=== PATIENT | male | born 1990 | race Caucasian/White ===

== ENCOUNTER 2018-05-28 12:38 | Inpatient (IN) | payer OTHER ==
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
[2018-05-28] MEDS ORDERED: MAGNESIUM CITRATE 300 ML BOTTLE PO PRN (14:51)
[2018-05-28] MEDS ORDERED: guaiFENesin/D-METHORPHAN HB 10 ML UNIT-DOSE CUPS PO PRN (14:51)
[2018-05-28] MEDS ORDERED: MENTHOL/PHENOL 1 EACH UD MM PRN (14:51)
[2018-05-28] MEDS ORDERED: ACETAMINOPHEN 325 MG TABLET (FP) PO PRN (14:51)
[2018-05-28] MEDS ORDERED: LOPERAMIDE HCL 2 MG CAPSULE PO PRN (14:51)
[2018-05-28] MEDS ORDERED: MAGNESIUM HYDROX 2400MG/30ML ORAL SUSPENSION 30 ML CUP PO PRN (14:51)
[2018-05-28] MEDS ORDERED: P-EPHED 60MG/TRIPROLIDI 2.5MG TABLET PO PRN (14:51)
[2018-05-28] MEDS ORDERED: IBUPROFEN 400 MG TABLET (FP) PO PRN (14:51)
[2018-05-28] MEDS ORDERED: NICOTINE POLACRILEX 2 MG GUM BUC PRN (14:51)
[2018-05-28] MEDS: PHENYTOIN NA EXTENDED 100 MG CAPSULE (FP) PO SCH (21:29)
[2018-05-28] MEDS: THIAMINE HCL 100 MG TABLET (FP) PO SCH (21:29)
[2018-05-28] MEDS: RANITIDINE HCL 150 MG TABLET (FP) PO SCH (21:29)
[2018-05-28] MEDS: QUEtiapine FUMARATE 400 MG TABLET PO SCH (21:29)
[2018-05-28] MEDS: AMITRIPTYLINE HCL 100 MG TABLET PO SCH (21:29)
[2018-05-29] MEDS: METHADONE HCL 40 MG DISPERSABLE TABLET PO SCH (06:37)
[2018-05-29] MEDS: PRENATAL VITAMINS W/ FOLIC ACID TABLET (FP) PO SCH (09:38)
[2018-05-29] MEDS: PHENYTOIN NA EXTENDED 100 MG CAPSULE (FP) PO SCH ×2 (09:38→21:20)
[2018-05-29] MEDS: RANITIDINE HCL 150 MG TABLET (FP) PO SCH ×2 (09:38→21:20)
[2018-05-29] MEDS: NICOTINE 21 MG/24 HOURS TOPICAL PATCH TD SCH (09:40)
--- NOTE | 2018-05-29 15:25 | PN ---
[facility] Progress Note Note: Vital Signs Temperature 97.6 F 05/29/18 06:44 Pulse Rate 108 H 05/29/18 10:00 Respiratory Rate 18 05/29/18 10:00 Blood Pressure 125/80 05/29/18 10:00 O2 Sat by Pulse Oximetry (%) patient was evaluated by marketing strategy analyst rec: Ensure 120 ML PO BID . Ensure ordered increase fluids continue to monitor
--- NOTE | 2018-05-29 15:37 | PN ---
[facility] Progress Note Note: Patient c/o of back pain and cracked feet from walking on them x 5 days. Vital Signs Temperature 97.6 F 05/29/18 06:44 Pulse Rate 108 H 05/29/18 10:00 Respiratory Rate 18 05/29/18 10:00 Blood Pressure 125/80 05/29/18 10:00 O2 Sat by Pulse Oximetry (%) Patient Aox3 no distress no adventitious breath sounds + back pain + callus bilaterally and +small lesion on the right plantar surface seondary to dry skin no infection full ROM ambulating in the unit - skin lesion - callus - back pain Plan: keep skin clean and dry, top bacitracin, top AxD oint, cover right lesion with gauze qd flexeril pRN lidocaine patch increase fluids continue to monitor
[2018-05-29] MEDS: AMITRIPTYLINE HCL 100 MG TABLET PO SCH (21:20)
[2018-05-29] MEDS: THIAMINE HCL 100 MG TABLET (FP) PO SCH (21:20)
[2018-05-29] MEDS: QUEtiapine FUMARATE 400 MG TABLET PO SCH (21:20)
[2018-05-29] MEDS: VITAMINS A AND D TOPICAL OINTMENT 60 GM TUBE TP SCH (21:21)
[2018-05-29] MEDS: MELATONIN 5 MG TABLETS PO PRN (21:22)
[2018-05-29] MEDS: CYCLOBENZAPRINE HCL 5 MG TABLET PO SCH (21:22)
[2018-05-29] MEDS: LIDOCAINE PATCH REMOVAL MC SCH (21:23)
[2018-05-29] MEDS: BACITRACIN 0.9 GM PACKET TP SCH (21:58)
[2018-05-29] MEDS ORDERED: TOLNAFTATE 1% CREAM 15 GM TUBE TP SCH (22:00)
[2018-05-30] MEDS: CYCLOBENZAPRINE HCL 5 MG TABLET PO SCH ×3 (06:28→21:07)
[2018-05-30] MEDS: METHADONE HCL 40 MG DISPERSABLE TABLET PO SCH (06:28)
[2018-05-30] MEDS: LIDOCAINE 5% TOPICAL PATCH TP SCH (09:53)
[2018-05-30] MEDS: NICOTINE 21 MG/24 HOURS TOPICAL PATCH TD SCH (09:53)
[2018-05-30] MEDS: PRENATAL VITAMINS W/ FOLIC ACID TABLET (FP) PO SCH (09:53)
[2018-05-30] MEDS: BACITRACIN 0.9 GM PACKET TP SCH ×2 (09:53→21:07)
[2018-05-30] MEDS: RANITIDINE HCL 150 MG TABLET (FP) PO SCH ×2 (09:53→21:07)
[2018-05-30] MEDS: PHENYTOIN NA EXTENDED 100 MG CAPSULE (FP) PO SCH ×2 (09:53→21:07)
[2018-05-30] MEDS: VITAMINS A AND D TOPICAL OINTMENT 60 GM TUBE TP SCH ×2 (09:56→21:57)
--- NOTE | 2018-05-30 10:46 | PN ---
S Progress Note Note: Labs from 05/24/18 reviewed: Potassium 2.8. Patient asymptomatic. Will order BMP to reassess Potassium level. Continue to monitor clinically.
--- NOTE | 2018-05-30 15:06 | PN ---
Psychiatric Progress Note Vital Signs: Vital Signs Period Temp Pulse Resp BP Sys/Lieberamn Pulse Ox Last 24 Hr 97.9 F 88-101 -18 117-134/68-84 Date of Session: 05/30/18 Chief Complaint:: Anxiety HPI: Patient addressing Alcohol, Sedative Dependence comorbid with Opioid Dependence on Agonist Therapy, Nicotine Dependence, Mood Disorder, Substance- Induced Mood Disorder and Substance-Induced Sleep Disorder ROS: GERD, Hep C, Mitral Valve prolapse Current Medications: Active Medications Generic Name Dose Route Start Last Admin Trade Name Freq PRN Reason Stop Dose Admin Acetaminophen 650 mg 05/28/18 14:51 Tylenol - PO Q4H PRN FEVER Al Hydroxide/Mg Hydroxide 30 ml 05/28/18 14:51 Mylanta Oral Suspension - PO Q6H PRN DYSPEPSIA Amitriptyline HCl 200 mg 05/28/18 22:00 05/29/18 21:20 Elavil - PO 200 mg HS GUILLERMO Administration Bacitracin 0.9 gm 05/29/18 22:00 05/30/18 09:53 Bacitracin - TP 0.9 gm BID GUILLERMO Administration Bupropion HCl 300 mg 05/29/18 10:00 05/30/18 09:53 Wellbutrin Xl - PO 300 mg DAILY GUILLERMO Administration Cyclobenzaprine HCl 5 mg 05/29/18 22:00 05/30/18 06:28 Cyclobenzaprine Hcl PO 5 mg TID GUILLERMO Administration Eucalyptus/Menthol/Phenol/Sorbitol 1 each 05/28/18 14:51 Cepastat Lozenge - MM Q4H PRN SORE THROAT Guaifenesin 10 ml 05/28/18 14:51 Robitussin Dm - PO Q6H PRN COUGH Hydroxyzine Pamoate 50 mg 05/30/18 14:56 Vistaril - PO Q4H PRN ANXIETY Ibuprofen 400 mg 05/28/18 14:51 05/28/18 21:30 Motrin - PO 400 mg Q6H PRN Administration Pain Level 4-6 Lidocaine 1 patch 05/30/18 10:00 05/30/18 09:53 Lidoderm Patch - TP 1 patch DAILY GUILLERMO Administration Loperamide HCl 4 mg 05/28/18 14:51 Imodium - PO Q6H PRN DIARRHEA Magnesium Citrate 300 ml 05/28/18 14:51 Citroma - PO Q48H PRN CONSTIPATION Magnesium Hydroxide 30 ml 05/28/18 14:51 Milk Of Magnesia - PO DAILY PRN CONSTIPATION Melatonin 5 mg 05/28/18 22:00 05/29/18 21:22 Melatonin PO 5 mg HS PRN Administration INSOMNIA Methadone HCl 200 mg 05/29/18 06:00 05/30/18 06:28 Dolophine - PO 06/04/18 05:59 200 mg DAILY@0600 GUILLERMO Administration Miscellaneous 1 each 05/29/18 22:00 05/29/18 21:23 Lidoderm Patch Removal MC Not Given DAILY@2200 [facility] Nicotine 21 mg 05/29/18 10:00 05/30/18 09:53 Nicoderm Patch - TD 21 mg DAILY GUILLERMO Administration Nicotine Polacrilex 2 mg 05/28/18 14:51 Nicorette Gum - BUC Q2H PRN NICOTINE REPLACEMENT RX Phenytoin Sodium 100 mg 05/28/18 22:00 05/30/18 09:53 Dilantin - PO 100 mg BID GUILLERMO Administration Multivit/Folic Acid/Iron 1 tab 05/29/18 10:00 05/30/18 09:53 Vitamins (Sjr) - PO 1 tab DAILY GUILLERMO Administration Pseudoephedrine/Triprolidine 1 combo 05/28/18 14:51 Actifed - PO TID PRN NASAL CONGESTION Quetiapine Fumarate 400 mg 05/28/18 22:00 05/29/18 21:20 Seroquel - PO 400 mg HS GUILLERMO Administration Ranitidine HCl 150 mg 05/28/18 22:00 05/30/18 09:53 Zantac - PO 150 mg BID GUILLERMO Administration Thiamine HCl 100 mg 05/28/18 22:00 05/29/18 21:20 Vitamin B1 - PO 100 mg HS GUILLERMO Administration Vitamin A/Vitamin D 1 applic 05/29/18 22:00 05/30/18 09:56 Vitamin A & D Top Oint - TP 1 applic BID GUILLERMO Administration Medication(s) Change(s): Start Vistaril 50 mmg po Q 4hrs prn for anxiety Current Side Effect: No Lab tests ordered: Yes Lab tests reviewed: Yes Provider note:: Patient reports that he has been experiencing severe anxiety symptoms despite taking medications(Wellbutrin XL 300 mg po daily, Seroquel 400 mg po HS and Elavil 200 mg po HS). Told communications writer that he used to take Klonopin for that. Discussed with patient anxiolytic properties of Vistaril and he agreed to try it Total face to face time:: 15 Mental Status Exam - Mental Status Exam Alert and Oriented to: Time, Place, Person Cognitive Function: Fair Patient Appearance: Well Groomed Mood: Anxious Affect: Appropriate Patient Behavior: Cooperative Speech Pattern: Clear Voice Loudness: Normal Thought Process: Intact, Goal Oriented Thought Disorder: Not Present Hallucinations: Denies Suicidal Ideation: Denies Homicidal Ideation: Denies Insight/Judgement: Fair Sleep: Fair Appetite: Good Muscle strength/Tone: Normal Gait/Station: Normal Psychiatric Treatment Plan - Problem List (1) Alcohol dependence Current Visit: Yes (2) Sedative hypnotic or anxiolytic dependence Current Visit: Yes (3) Opioid dependence on agonist therapy Current Visit: Yes (4) Nicotine dependence Current Visit: No Qualifiers: Nicotine product type: cigarettes Substance use status: in withdrawal Qualified Code(s): F17.213 - Nicotine dependence, cigarettes, with withdrawal (5) Mood disorder Current Visit: No (6) PTSD (post-traumatic stress disorder) Current Visit: Yes (7) Substance induced mood disorder Current Visit: Yes (8) Substance-induced sleep disorder Current Visit: Yes (9) GERD (gastroesophageal reflux disease) Current Visit: No Qualifiers: Esophagitis presence: without esophagitis Qualified Code(s): K21.9 - Gastro -esophageal reflux disease without esophagitis (10) Hepatitis C Current Visit: No Qualifiers: Viral hepatitis chronicity: unspecified Hepatic coma status: without hepatic coma Qualified Code(s): B19.20 - Unspecified viral hepatitis C without hepatic coma (11) Hx of mitral valve prolapse Current Visit: No (12) Hx of seizure disorder Current Visit: No Initial treatment plan: 1) Start Vistatril 50 mg po Q 4hrs prn for anxiety. 2) Monitor progress
[2018-05-30] MEDS: hydrOXYzine PAMOATE 50 MG CAPSULE (FP) PO PRN ×2 (15:49→21:07)
[2018-05-30] MEDS: QUEtiapine FUMARATE 400 MG TABLET PO SCH (21:07)
[2018-05-30] MEDS: AMITRIPTYLINE HCL 100 MG TABLET PO SCH (21:08)
[2018-05-30] MEDS: LIDOCAINE PATCH REMOVAL MC SCH (21:09)
[2018-05-30] MEDS: THIAMINE HCL 100 MG TABLET (FP) PO SCH (21:09)
[2018-05-31] MEDS: CYCLOBENZAPRINE HCL 5 MG TABLET PO SCH ×3 (06:03→21:06)
[2018-05-31] MEDS: METHADONE HCL 40 MG DISPERSABLE TABLET PO SCH (06:06)
[2018-05-31] MEDS: LIDOCAINE 5% TOPICAL PATCH TP SCH (09:34)
[2018-05-31] MEDS: NICOTINE 21 MG/24 HOURS TOPICAL PATCH TD SCH (09:34)
[2018-05-31] MEDS: BACITRACIN 0.9 GM PACKET TP SCH ×2 (09:34→21:06)
[2018-05-31] MEDS: hydrOXYzine PAMOATE 50 MG CAPSULE (FP) PO PRN ×3 (09:34→21:06)
[2018-05-31] MEDS: PHENYTOIN NA EXTENDED 100 MG CAPSULE (FP) PO SCH ×2 (09:34→21:06)
[2018-05-31] MEDS: PRENATAL VITAMINS W/ FOLIC ACID TABLET (FP) PO SCH (09:34)
[2018-05-31] MEDS: RANITIDINE HCL 150 MG TABLET (FP) PO SCH ×2 (09:35→21:06)
[2018-05-31] MEDS: VITAMINS A AND D TOPICAL OINTMENT 60 GM TUBE TP SCH ×2 (09:35→21:08)
[2018-05-31 10:10] LABS: ANION GAP 3 (8-16); BLOOD UREA NITROGEN 8 mg/dL (7-18); CALCIUM 9.3 mg/dL (8.5-10.1); CHLORIDE 103 mmol/L (98-107); CO2 34 mmol/L (21-32); CREATININE 0.7 mg/dL (0.7-1.3); GLUCOSE,RANDOM 82 mg/dL (74-106); POTASSIUM 4.9 mmol/L (3.5-5.1); SODIUM 140 mmol/L (136-145)
--- NOTE | 2018-05-31 14:16 | PN ---
S Progress Note Note: Patient c/o of feeling anxious, dry feet and requested clonidine for BP. Vital Signs Temperature 97.8 F 05/31/18 06:44 Pulse Rate 93 H 05/31/18 10:00 Respiratory Rate 18 05/31/18 10:00 Blood Pressure 140/96 05/31/18 10:00 O2 Sat by Pulse Oximetry (%) Laboratory Last Values Sodium 140 mmol/L (136-145) 05/31/18 08:40 Potassium 4.9 mmol/L (3.5-5.1) D 05/31/18 08:40 Chloride 103 mmol/L (98-107) 05/31/18 08:40 Carbon Dioxide 34 mmol/L (21-32) H D 05/31/18 08:40 Anion Gap 3 (8-16) L 05/31/18 08:40 BUN 8 mg/dL (7-18) 05/31/18 08:40 Creatinine 0.7 mg/dL (0.7-1.3) 05/31/18 08:40 Creat Clearance w eGFR > 60 (>60) 05/31/18 08:40 Random Glucose 82 mg/dL (74-106) 05/31/18 08:40 Calcium 9.3 mg/dL (8.5-10.1) 05/31/18 08:40 Aox3, no distress , anxious no adventitious breath sounds full ROM + dry skin - anxiety Plan: follow up with psych continue Vistaril as prescribed BP stable at this time, will continue to monitor increase fluids A&D for dry skin K+ stable continue to monitor
[2018-05-31] MEDS: AMITRIPTYLINE HCL 100 MG TABLET PO SCH (21:06)
[2018-05-31] MEDS: THIAMINE HCL 100 MG TABLET (FP) PO SCH (21:06)
[2018-05-31] MEDS: QUEtiapine FUMARATE 400 MG TABLET PO SCH (21:06)
[2018-05-31] MEDS: LIDOCAINE PATCH REMOVAL MC SCH (21:08)
[2018-05-31] MEDS ORDERED: PT OWN MED DRAWER 7, Y5N ONE (21:30)
[2018-06-01] MEDS: METHADONE HCL 40 MG DISPERSABLE TABLET PO SCH (06:27)
[2018-06-01] MEDS: CYCLOBENZAPRINE HCL 5 MG TABLET PO SCH ×3 (06:27→21:19)
[2018-06-01] MEDS: BACITRACIN 0.9 GM PACKET TP SCH ×2 (09:45→21:18)
[2018-06-01] MEDS: PHENYTOIN NA EXTENDED 100 MG CAPSULE (FP) PO SCH ×2 (09:45→21:19)
[2018-06-01] MEDS: NICOTINE 21 MG/24 HOURS TOPICAL PATCH TD SCH (09:45)
[2018-06-01] MEDS: PRENATAL VITAMINS W/ FOLIC ACID TABLET (FP) PO SCH (09:45)
[2018-06-01] MEDS: RANITIDINE HCL 150 MG TABLET (FP) PO SCH ×2 (09:45→21:19)
[2018-06-01] MEDS: LIDOCAINE 5% TOPICAL PATCH TP SCH (09:45)
[2018-06-01] MEDS: VITAMINS A AND D TOPICAL OINTMENT 60 GM TUBE TP SCH ×2 (11:22→21:19)
[2018-06-01] MEDS: hydrOXYzine PAMOATE 50 MG CAPSULE (FP) PO PRN ×2 (13:11→17:54)
[2018-06-01] MEDS ORDERED: cloNIDine HCL 0.1 MG TABLET PO ONE (14:03)
--- NOTE | 2018-06-01 14:04 | PN ---
S Progress Note Note: Vital Signs - 24 hr 06/01/18 06/01/18 06/01/18 00:30 03:30 06:43 Temperature 97.6 F Pulse Rate 92 H Respiratory 17 16 20 Rate Blood Pressure 155/100 06/01/18 10:00 Temperature Pulse Rate 122 H Respiratory 20 Rate Blood Pressure 139/96 Patient with elevated distolic BP, asymptomatic one time dose clonidine 0.1 mg increase fluids continue to monitor
[2018-06-01] MEDS: THIAMINE HCL 100 MG TABLET (FP) PO SCH (21:18)
[2018-06-01] MEDS: AMITRIPTYLINE HCL 100 MG TABLET PO SCH (21:18)
[2018-06-01] MEDS: MELATONIN 5 MG TABLETS PO PRN (21:19)
[2018-06-01] MEDS: QUEtiapine FUMARATE 400 MG TABLET PO SCH (21:19)
[2018-06-01] MEDS: LIDOCAINE PATCH REMOVAL MC SCH (23:43)
[2018-06-02] MEDS: METHADONE HCL 40 MG DISPERSABLE TABLET PO SCH (06:07)
[2018-06-02] MEDS: CYCLOBENZAPRINE HCL 5 MG TABLET PO SCH ×3 (06:07→21:07)
[2018-06-02] MEDS ORDERED: PT OWN MED DRAWER 7, Y5N ONE ×4 (08:24→22:54)
[2018-06-02] MEDS: VITAMINS A AND D TOPICAL OINTMENT 60 GM TUBE TP SCH ×2 (09:24→22:19)
[2018-06-02] MEDS: PRENATAL VITAMINS W/ FOLIC ACID TABLET (FP) PO SCH (09:24)
[2018-06-02] MEDS: PHENYTOIN NA EXTENDED 100 MG CAPSULE (FP) PO SCH ×2 (09:24→21:07)
[2018-06-02] MEDS: RANITIDINE HCL 150 MG TABLET (FP) PO SCH ×2 (09:24→21:26)
[2018-06-02] MEDS: NICOTINE 21 MG/24 HOURS TOPICAL PATCH TD SCH (09:24)
[2018-06-02] MEDS: LIDOCAINE 5% TOPICAL PATCH TP SCH (09:24)
[2018-06-02] MEDS: BACITRACIN 0.9 GM PACKET TP SCH ×2 (09:24→21:07)
[2018-06-02] MEDS: hydrOXYzine PAMOATE 50 MG CAPSULE (FP) PO PRN ×4 (09:26→22:48)
[2018-06-02] MEDS: AMITRIPTYLINE HCL 100 MG TABLET PO SCH (21:07)
[2018-06-02] MEDS: QUEtiapine FUMARATE 400 MG TABLET PO SCH (21:09)
[2018-06-02] MEDS: THIAMINE HCL 100 MG TABLET (FP) PO SCH (21:25)
[2018-06-02] MEDS: LIDOCAINE PATCH REMOVAL MC SCH (21:25)
[2018-06-02] MEDS: MELATONIN 5 MG TABLETS PO PRN (21:26)
[2018-06-03] MEDS: METHADONE HCL 40 MG DISPERSABLE TABLET PO SCH (06:09)
[2018-06-03] MEDS: CYCLOBENZAPRINE HCL 5 MG TABLET PO SCH ×3 (06:09→21:18)
[2018-06-03] MEDS ORDERED: PT OWN MED DRAWER 7, Y5N ONE ×3 (08:29→22:39)
[2018-06-03] MEDS: RANITIDINE HCL 150 MG TABLET (FP) PO SCH ×2 (09:39→21:18)
[2018-06-03] MEDS: PRENATAL VITAMINS W/ FOLIC ACID TABLET (FP) PO SCH (09:39)
[2018-06-03] MEDS: NICOTINE 21 MG/24 HOURS TOPICAL PATCH TD SCH (09:40)
[2018-06-03] MEDS: PHENYTOIN NA EXTENDED 100 MG CAPSULE (FP) PO SCH ×2 (09:40→21:18)
[2018-06-03] MEDS: LIDOCAINE 5% TOPICAL PATCH TP SCH (09:40)
[2018-06-03] MEDS: hydrOXYzine PAMOATE 50 MG CAPSULE (FP) PO PRN ×4 (09:40→22:53)
[2018-06-03] MEDS: BACITRACIN 0.9 GM PACKET TP SCH ×2 (09:40→21:20)
[2018-06-03] MEDS: VITAMINS A AND D TOPICAL OINTMENT 60 GM TUBE TP SCH ×2 (09:40→21:19)
[2018-06-03] MEDS: QUEtiapine FUMARATE 400 MG TABLET PO SCH (21:18)
[2018-06-03] MEDS: AMITRIPTYLINE HCL 100 MG TABLET PO SCH (21:18)
[2018-06-03] MEDS: THIAMINE HCL 100 MG TABLET (FP) PO SCH (21:18)
[2018-06-03] MEDS: LIDOCAINE PATCH REMOVAL MC SCH (21:20)
[2018-06-04] MEDS: METHADONE HCL 40 MG DISPERSABLE TABLET PO SCH (06:07)
[2018-06-04] MEDS: CYCLOBENZAPRINE HCL 5 MG TABLET PO SCH ×3 (06:07→21:18)
[2018-06-04] MEDS: hydrOXYzine PAMOATE 50 MG CAPSULE (FP) PO PRN ×4 (06:07→21:20)
[2018-06-04] MEDS: PHENYTOIN NA EXTENDED 100 MG CAPSULE (FP) PO SCH ×2 (09:43→21:18)
[2018-06-04] MEDS: RANITIDINE HCL 150 MG TABLET (FP) PO SCH ×2 (09:43→21:18)
[2018-06-04] MEDS: BACITRACIN 0.9 GM PACKET TP SCH ×2 (09:43→21:20)
[2018-06-04] MEDS: PRENATAL VITAMINS W/ FOLIC ACID TABLET (FP) PO SCH (09:43)
[2018-06-04] MEDS: LIDOCAINE 5% TOPICAL PATCH TP SCH (09:45)
[2018-06-04] MEDS: VITAMINS A AND D TOPICAL OINTMENT 60 GM TUBE TP SCH ×2 (09:45→21:18)
[2018-06-04] MEDS: NICOTINE 21 MG/24 HOURS TOPICAL PATCH TD SCH (09:45)
[2018-06-04] MEDS: MAG HYDROX/AL HYDROX/SIMETH 30 ML UNIT-DOSE CUP PO PRN ×2 (11:48→18:01)
[2018-06-04] MEDS: QUEtiapine FUMARATE 400 MG TABLET PO SCH (21:17)
[2018-06-04] MEDS: AMITRIPTYLINE HCL 100 MG TABLET PO SCH (21:17)
[2018-06-04] MEDS: THIAMINE HCL 100 MG TABLET (FP) PO SCH (21:17)
[2018-06-04] MEDS: LIDOCAINE PATCH REMOVAL MC SCH (21:18)
[2018-06-05] MEDS: CYCLOBENZAPRINE HCL 5 MG TABLET PO SCH ×3 (06:13→21:13)
[2018-06-05] MEDS: METHADONE HCL 40 MG DISPERSABLE TABLET PO SCH (06:16)
[2018-06-05] MEDS: hydrOXYzine PAMOATE 50 MG CAPSULE (FP) PO PRN ×3 (06:17→17:55)
[2018-06-05] MEDS: NICOTINE 21 MG/24 HOURS TOPICAL PATCH TD SCH (09:39)
[2018-06-05] MEDS: LIDOCAINE 5% TOPICAL PATCH TP SCH (09:40)
[2018-06-05] MEDS: PHENYTOIN NA EXTENDED 100 MG CAPSULE (FP) PO SCH ×2 (09:40→21:13)
[2018-06-05] MEDS: BACITRACIN 0.9 GM PACKET TP SCH ×2 (09:40→21:13)
[2018-06-05] MEDS: RANITIDINE HCL 150 MG TABLET (FP) PO SCH ×2 (09:40→21:13)
[2018-06-05] MEDS: PRENATAL VITAMINS W/ FOLIC ACID TABLET (FP) PO SCH (09:40)
[2018-06-05] MEDS: VITAMINS A AND D TOPICAL OINTMENT 60 GM TUBE TP SCH ×2 (09:42→21:14)
--- NOTE | 2018-06-05 14:55 | PN ---
Psychiatric Progress Note Vital Signs: Vital Signs Period Temp Pulse Resp BP Sys/Lieberman Pulse Ox Last 24 Hr 98 F 88 18-20 141/89 Date of Session: 06/05/18 Chief Complaint:: "I"m feeling very anxious" HPI: Patient addressing Alcohol and Sedative Dependence comorbid with Opioid Dependence on Agonist Therapy, Nicotine Dependence, Mood Disorder, Posttraumatic Stress Disorder, Substance-Induced Mood Disorder and Substance- Induced Sleep Disorder ROS: GERD, Mitral valve prolapse, Seizure Disorder Current Medications: Active Medications Generic Name Dose Route Start Last Admin Trade Name Freq PRN Reason Stop Dose Admin Acetaminophen 650 mg 05/28/18 14:51 Tylenol - PO Q4H PRN FEVER Al Hydroxide/Mg Hydroxide 30 ml 05/28/18 14:51 06/04/18 18:01 Mylanta Oral Suspension - PO 30 ml Q6H PRN Administration DYSPEPSIA Amitriptyline HCl 100 mg 06/05/18 22:00 Elavil - PO HS GUILLERMO Amitriptyline HCl 50 mg 06/05/18 17:00 Elavil - PO BID@1000,1700 GUILLERMO Bacitracin 0.9 gm 05/29/18 22:00 06/05/18 09:40 Bacitracin - TP 0.9 gm BID GUILLERMO Administration Bupropion HCl 300 mg 05/29/18 10:00 06/05/18 09:42 Wellbutrin Xl - PO 300 mg DAILY GUILLERMO Administration Cyclobenzaprine HCl 5 mg 05/29/18 22:00 06/05/18 13:05 Cyclobenzaprine Hcl PO 5 mg TID GUILLERMO Administration Eucalyptus/Menthol/Phenol/Sorbitol 1 each 05/28/18 14:51 Cepastat Lozenge - MM Q4H PRN SORE THROAT Guaifenesin 10 ml 05/28/18 14:51 Robitussin Dm - PO Q6H PRN COUGH Hydroxyzine Pamoate 50 mg 05/30/18 14:56 06/05/18 10:34 Vistaril - PO 50 mg Q4H PRN Administration ANXIETY Ibuprofen 400 mg 05/28/18 14:51 05/28/18 21:30 Motrin - PO 400 mg Q6H PRN Administration Pain Level 4-6 Lidocaine 1 patch 05/30/18 10:00 06/05/18 09:40 Lidoderm Patch - TP 1 patch DAILY GUILLEROM Administration Loperamide HCl 4 mg 05/28/18 14:51 Imodium - PO Q6H PRN DIARRHEA Magnesium Citrate 300 ml 05/28/18 14:51 Citroma - PO Q48H PRN CONSTIPATION Magnesium Hydroxide 30 ml 05/28/18 14:51 Milk Of Magnesia - PO DAILY PRN CONSTIPATION Melatonin 5 mg 05/28/18 22:00 06/02/18 21:26 Melatonin PO 5 mg HS PRN Administration INSOMNIA Methadone HCl 200 mg 06/04/18 06:00 06/05/18 06:16 Dolophine - PO 200 mg DAILY@0600 GUILLERMO Administration Miscellaneous 1 each 05/29/18 22:00 06/04/18 21:18 Lidoderm Patch Removal MC 1 each DAILY@2200 GUILLERMO Administration Nicotine 21 mg 05/29/18 10:00 06/05/18 09:39 Nicoderm Patch - TD Not Given DAILY GUILLERMO Nicotine Polacrilex 2 mg 05/28/18 14:51 Nicorette Gum - BUC Q2H PRN NICOTINE REPLACEMENT RX Phenytoin Sodium 100 mg 05/28/18 22:00 06/05/18 09:40 Dilantin - PO 100 mg BID GUILLERMO Administration Multivit/Folic Acid/Iron 1 tab 05/29/18 10:00 06/05/18 09:40 Vitamins (Sjr) - PO 1 tab DAILY GUILLERMO Administration Pseudoephedrine/Triprolidine 1 combo 05/28/18 14:51 Actifed - PO TID PRN NASAL CONGESTION Quetiapine Fumarate 400 mg 05/28/18 22:00 06/04/18 21:17 Seroquel - PO 400 mg HS GUILLERMO Administration Ranitidine HCl 150 mg 05/28/18 22:00 06/05/18 09:40 Zantac - PO 150 mg BID GUILLERMO Administration Thiamine HCl 100 mg 05/28/18 22:00 06/04/18 21:17 Vitamin B1 - PO 100 mg HS GUILLERMO Administration Vitamin A/Vitamin D 1 applic 05/29/18 22:00 06/05/18 09:42 Vitamin A & D Top Oint - TP 1 applic BID GUILLERMO Administration Medication(s) Change(s): Change Elavil to 50 mg po BID & 100 mg HS Current Side Effect: No Lab tests ordered: Yes Lab tests reviewed: Yes Provider note:: Patient reports feeling very anxious. Told mortgage loan underwriter that he is taking a lot of medications at night and not enough during the day. He said that he sleeps well at night but feels very anxious during the day. He is currently on Wellbutrin XL 300 mg po daily, Elavil 200 mg po HS, Seroquel 400 mg po HS and Vistaril 50 mg po Q 4hrs prn for anxiety. He talked about his situation and does not feel his counselor is doing much to help him. He does not want to leave this program and face homelessness again. He wants to go to a residential program. He told mortgage loan underwriter that he is on parole and may go back to [facility] if he goes back to the streets. Total face to face time:: 25 Mental Status Exam - Mental Status Exam Alert and Oriented to: Time, Place, Person Cognitive Function: Fair Patient Appearance: Well Groomed Mood: Anxious (very) Affect: Appropriate Patient Behavior: Cooperative Speech Pattern: Clear Voice Loudness: Normal Thought Process: Intact, Goal Oriented Thought Disorder: Not Present Hallucinations: Denies Suicidal Ideation: Denies Homicidal Ideation: Denies Insight/Judgement: Fair Sleep: Well Appetite: Good Muscle strength/Tone: Normal Gait/Station: Normal Psychiatric Treatment Plan - Problem List (1) Alcohol dependence Current Visit: Yes (2) Sedative hypnotic or anxiolytic dependence Current Visit: Yes (3) Opioid dependence on agonist therapy Current Visit: Yes (4) Nicotine dependence Current Visit: No Qualifiers: Nicotine product type: cigarettes Substance use status: in withdrawal Qualified Code(s): F17.213 - Nicotine dependence, cigarettes, with withdrawal (5) Mood disorder Current Visit: No (6) PTSD (post-traumatic stress disorder) Current Visit: Yes (7) Substance induced mood disorder Current Visit: Yes (8) Substance-induced sleep disorder Current Visit: Yes (9) GERD (gastroesophageal reflux disease) Current Visit: No Qualifiers: Esophagitis presence: without esophagitis Qualified Code(s): K21.9 - Gastro -esophageal reflux disease without esophagitis (10) Hepatitis C Current Visit: No Qualifiers: Viral hepatitis chronicity: unspecified Hepatic coma status: without hepatic coma Qualified Code(s): B19.20 - Unspecified viral hepatitis C without hepatic coma (11) Hx of mitral valve prolapse Current Visit: No (12) Hx of seizure disorder Current Visit: No Initial treatment plan: 1) Discontinue Elavil as currently ordered. 2) Start Elavil 50 mg BID & 100 mg HS. 3) Monitor progress
--- NOTE | 2018-06-05 15:39 | PN ---
[facility] Progress Note Note: c/o of feeling shaky and tremors prior to eating . Denies vertigo Vital Signs Temperature 98 F 06/05/18 06:55 Pulse Rate 88 06/05/18 06:55 Respiratory Rate 20 06/05/18 06:55 Blood Pressure 141/89 06/05/18 06:55 O2 Sat by Pulse Oximetry (%) Laboratory Last Values Sodium 140 mmol/L (136-145) 05/31/18 08:40 Potassium 4.9 mmol/L (3.5-5.1) D 05/31/18 08:40 Chloride 103 mmol/L (98-107) 05/31/18 08:40 Carbon Dioxide 34 mmol/L (21-32) H D 05/31/18 08:40 Anion Gap 3 (8-16) L 05/31/18 08:40 BUN 8 mg/dL (7-18) 05/31/18 08:40 Creatinine 0.7 mg/dL (0.7-1.3) 05/31/18 08:40 Creat Clearance w eGFR > 60 (>60) 05/31/18 08:40 Random Glucose 82 mg/dL (74-106) 05/31/18 08:40 Calcium 9.3 mg/dL (8.5-10.1) 05/31/18 08:40 AOX3 no distress no adventitious breath souls full ROM Plan: BGM ACBK increase fluids continue to monitor
[2018-06-05] MEDS: AMITRIPTYLINE HCL 25 MG TABLET (FP) PO SCH (17:00)
[2018-06-05] MEDS: QUEtiapine FUMARATE 400 MG TABLET PO SCH (21:13)
[2018-06-05] MEDS: LIDOCAINE PATCH REMOVAL MC SCH (21:14)
[2018-06-05] MEDS: THIAMINE HCL 100 MG TABLET (FP) PO SCH (21:14)
[2018-06-05] MEDS: AMITRIPTYLINE HCL 100 MG TABLET PO SCH (21:15)
[2018-06-06] MEDS: CYCLOBENZAPRINE HCL 5 MG TABLET PO SCH ×2 (06:08→13:46)
[2018-06-06] MEDS: METHADONE HCL 40 MG DISPERSABLE TABLET PO SCH (06:08)
[2018-06-06] MEDS: hydrOXYzine PAMOATE 50 MG CAPSULE (FP) PO PRN ×4 (06:09→21:57)
[2018-06-06] MEDS: RANITIDINE HCL 150 MG TABLET (FP) PO SCH ×2 (09:42→21:10)
[2018-06-06] MEDS: PHENYTOIN NA EXTENDED 100 MG CAPSULE (FP) PO SCH ×2 (09:42→21:11)
[2018-06-06] MEDS: LIDOCAINE 5% TOPICAL PATCH TP SCH (09:42)
[2018-06-06] MEDS: NICOTINE 21 MG/24 HOURS TOPICAL PATCH TD SCH (09:42)
[2018-06-06] MEDS: BACITRACIN 0.9 GM PACKET TP SCH ×2 (09:42→21:10)
[2018-06-06] MEDS: AMITRIPTYLINE HCL 25 MG TABLET (FP) PO SCH ×2 (09:42→16:57)
[2018-06-06] MEDS: PRENATAL VITAMINS W/ FOLIC ACID TABLET (FP) PO SCH (09:43)
[2018-06-06] MEDS: VITAMINS A AND D TOPICAL OINTMENT 60 GM TUBE TP SCH ×2 (09:45→21:12)
[2018-06-06] MEDS: MAG HYDROX/AL HYDROX/SIMETH 30 ML UNIT-DOSE CUP PO PRN (13:46)
--- NOTE | 2018-06-06 14:20 | PN ---
[facility] Progress Note Note: Patient with hx of alcoholism c/o of bilateral tremors Vital Signs Temperature 97.1 F L 06/06/18 06:43 Pulse Rate 102 H 06/06/18 06:43 Respiratory Rate 20 06/06/18 06:43 Blood Pressure 139/91 06/06/18 06:43 O2 Sat by Pulse Oximetry (%) Patient Oax3 no distress no adventitious breath sounds + tremors both hands tremors scary to alcohol use Plan flexeril d/c Baclofen BID increase fluids continue to monitor
[2018-06-06] MEDS: BACLOFEN 10 MG TABLET (FP) PO SCH (17:30)
[2018-06-06] MEDS: THIAMINE HCL 100 MG TABLET (FP) PO SCH (21:10)
[2018-06-06] MEDS: AMITRIPTYLINE HCL 100 MG TABLET PO SCH (21:10)
[2018-06-06] MEDS: LIDOCAINE PATCH REMOVAL MC SCH (21:11)
[2018-06-06] MEDS: QUEtiapine FUMARATE 400 MG TABLET PO SCH (21:11)
[2018-06-07] MEDS: METHADONE HCL 40 MG DISPERSABLE TABLET PO SCH (06:07)
[2018-06-07] MEDS: BACLOFEN 10 MG TABLET (FP) PO SCH ×2 (06:07→17:04)
[2018-06-07] MEDS: hydrOXYzine PAMOATE 50 MG CAPSULE (FP) PO PRN ×5 (06:07→23:03)
[2018-06-07] MEDS: PRENATAL VITAMINS W/ FOLIC ACID TABLET (FP) PO SCH (09:27)
[2018-06-07] MEDS: BACITRACIN 0.9 GM PACKET TP SCH ×2 (09:27→21:13)
[2018-06-07] MEDS: AMITRIPTYLINE HCL 25 MG TABLET (FP) PO SCH ×2 (09:27→17:03)
[2018-06-07] MEDS: RANITIDINE HCL 150 MG TABLET (FP) PO SCH ×2 (09:28→21:13)
[2018-06-07] MEDS: NICOTINE 21 MG/24 HOURS TOPICAL PATCH TD SCH (09:28)
[2018-06-07] MEDS: PHENYTOIN NA EXTENDED 100 MG CAPSULE (FP) PO SCH ×2 (09:28→21:13)
[2018-06-07] MEDS: VITAMINS A AND D TOPICAL OINTMENT 60 GM TUBE TP SCH ×2 (09:28→21:13)
[2018-06-07] MEDS: LIDOCAINE 5% TOPICAL PATCH TP SCH (09:28)
--- NOTE | 2018-06-07 10:59 | PN ---
[facility] Progress Note Note: patient reports hx of cardiogenic syncope, reports at home takes clonidine PRN, reports when laydown BP goes up, stand goes low and gets palpitations. Vital Signs Temperature 97.8 F 06/07/18 06:33 Pulse Rate 103 H 06/07/18 06:33 Respiratory Rate 18 06/07/18 06:33 Blood Pressure 142/93 06/07/18 06:33 O2 Sat by Pulse Oximetry (%) AOx3 no distress no adventitious breath sounds anxious + tremors both hands full ROM Plan: Will monitor Blood pressure clonidine QD 0.1 mg increase fluids
[2018-06-07] MEDS: cloNIDine HCL 0.1 MG TABLET PO SCH (11:39)
[2018-06-07] MEDS: THIAMINE HCL 100 MG TABLET (FP) PO SCH (21:13)
[2018-06-07] MEDS: AMITRIPTYLINE HCL 100 MG TABLET PO SCH (21:13)
[2018-06-07] MEDS: QUEtiapine FUMARATE 400 MG TABLET PO SCH (21:13)
[2018-06-07] MEDS: LIDOCAINE PATCH REMOVAL MC SCH (21:14)
[2018-06-08] MEDS: METHADONE HCL 40 MG DISPERSABLE TABLET PO SCH (06:02)
[2018-06-08] MEDS: BACLOFEN 10 MG TABLET (FP) PO SCH ×2 (06:02→17:03)
[2018-06-08] MEDS: hydrOXYzine PAMOATE 50 MG CAPSULE (FP) PO PRN ×4 (06:04→21:10)
[2018-06-08] MEDS: PRENATAL VITAMINS W/ FOLIC ACID TABLET (FP) PO SCH (09:45)
[2018-06-08] MEDS: AMITRIPTYLINE HCL 25 MG TABLET (FP) PO SCH ×2 (09:45→16:58)
[2018-06-08] MEDS: PHENYTOIN NA EXTENDED 100 MG CAPSULE (FP) PO SCH ×2 (09:45→21:10)
[2018-06-08] MEDS: NICOTINE 21 MG/24 HOURS TOPICAL PATCH TD SCH (09:45)
[2018-06-08] MEDS: cloNIDine HCL 0.1 MG TABLET PO SCH (09:45)
[2018-06-08] MEDS: BACITRACIN 0.9 GM PACKET TP SCH ×2 (09:45→21:10)
[2018-06-08] MEDS: RANITIDINE HCL 150 MG TABLET (FP) PO SCH ×2 (09:45→21:10)
[2018-06-08] MEDS: LIDOCAINE 5% TOPICAL PATCH TP SCH (09:46)
[2018-06-08] MEDS: VITAMINS A AND D TOPICAL OINTMENT 60 GM TUBE TP SCH ×2 (09:48→21:10)
--- NOTE | 2018-06-08 13:13 | PN ---
[facility] Progress Note Note: Vital Signs Temperature 97.7 F 06/08/18 06:29 Pulse Rate 109 H 06/08/18 10:00 Respiratory Rate 18 06/08/18 06:29 Blood Pressure 141/100 06/08/18 10:00 O2 Sat by Pulse Oximetry (%) Repeat BP now 138/92 P108 RR20 Patient asymptomatic one time dose clonidine 0.1 mg increase fluids continue to monitor Patient scheduled to complete this program on Monday06/11/18 and follow up with [facility] outpatient. Educated patient on the importance to remain abstinent from illicit substance and follow up with treatment. Patient informed to follow up with primary care provider 1-2 weeks post discharge. Patient verbalize understanding. Follow up with the ED for worsening symptoms.
[2018-06-08] MEDS ORDERED: cloNIDine HCL 0.1 MG TABLET PO ONE (13:30)
[2018-06-08] MEDS ORDERED: PT OWN MED DRAWER 7, Y5N ONE (18:21)
[2018-06-08] MEDS: LIDOCAINE PATCH REMOVAL MC SCH (21:09)
[2018-06-08] MEDS: THIAMINE HCL 100 MG TABLET (FP) PO SCH (21:10)
[2018-06-08] MEDS: QUEtiapine FUMARATE 400 MG TABLET PO SCH (21:10)
[2018-06-08] MEDS: AMITRIPTYLINE HCL 100 MG TABLET PO SCH (21:10)
[2018-06-09] MEDS: BACLOFEN 10 MG TABLET (FP) PO SCH ×2 (06:16→17:04)
[2018-06-09] MEDS: METHADONE HCL 40 MG DISPERSABLE TABLET PO SCH (06:16)
[2018-06-09] MEDS: hydrOXYzine PAMOATE 50 MG CAPSULE (FP) PO PRN ×3 (06:16→21:24)
[2018-06-09] MEDS: RANITIDINE HCL 150 MG TABLET (FP) PO SCH ×2 (09:38→21:23)
[2018-06-09] MEDS: NICOTINE 21 MG/24 HOURS TOPICAL PATCH TD SCH (09:38)
[2018-06-09] MEDS: BACITRACIN 0.9 GM PACKET TP SCH ×2 (09:38→21:22)
[2018-06-09] MEDS: PRENATAL VITAMINS W/ FOLIC ACID TABLET (FP) PO SCH (09:38)
[2018-06-09] MEDS: AMITRIPTYLINE HCL 25 MG TABLET (FP) PO SCH ×2 (09:38→17:04)
[2018-06-09] MEDS: VITAMINS A AND D TOPICAL OINTMENT 60 GM TUBE TP SCH ×2 (09:38→22:09)
[2018-06-09] MEDS: cloNIDine HCL 0.1 MG TABLET PO SCH (09:38)
[2018-06-09] MEDS: PHENYTOIN NA EXTENDED 100 MG CAPSULE (FP) PO SCH ×2 (09:38→21:22)
[2018-06-09] MEDS: LIDOCAINE 5% TOPICAL PATCH TP SCH (09:39)
[2018-06-09] MEDS ORDERED: PT OWN MED DRAWER 7, Y5N ONE (20:18)
[2018-06-09] MEDS: QUEtiapine FUMARATE 400 MG TABLET PO SCH (21:23)
[2018-06-09] MEDS: THIAMINE HCL 100 MG TABLET (FP) PO SCH (21:23)
[2018-06-09] MEDS: AMITRIPTYLINE HCL 100 MG TABLET PO SCH (21:23)
[2018-06-09] MEDS: LIDOCAINE PATCH REMOVAL MC SCH (22:09)
[2018-06-10] MEDS: hydrOXYzine PAMOATE 50 MG CAPSULE (FP) PO PRN ×2 (05:53→21:21)
[2018-06-10] MEDS: METHADONE HCL 40 MG DISPERSABLE TABLET PO SCH (05:53)
[2018-06-10] MEDS: BACLOFEN 10 MG TABLET (FP) PO SCH ×2 (05:53→17:03)
[2018-06-10] MEDS: VITAMINS A AND D TOPICAL OINTMENT 60 GM TUBE TP SCH ×2 (09:32→22:33)
[2018-06-10] MEDS: PRENATAL VITAMINS W/ FOLIC ACID TABLET (FP) PO SCH (09:32)
[2018-06-10] MEDS: cloNIDine HCL 0.1 MG TABLET PO SCH (09:32)
[2018-06-10] MEDS: LIDOCAINE 5% TOPICAL PATCH TP SCH (09:32)
[2018-06-10] MEDS: AMITRIPTYLINE HCL 25 MG TABLET (FP) PO SCH ×2 (09:32→16:56)
[2018-06-10] MEDS: RANITIDINE HCL 150 MG TABLET (FP) PO SCH ×2 (09:32→21:19)
[2018-06-10] MEDS: PHENYTOIN NA EXTENDED 100 MG CAPSULE (FP) PO SCH ×2 (09:32→21:20)
[2018-06-10] MEDS: NICOTINE 21 MG/24 HOURS TOPICAL PATCH TD SCH (09:32)
[2018-06-10] MEDS: BACITRACIN 0.9 GM PACKET TP SCH ×2 (09:32→21:19)
[2018-06-10] MEDS ORDERED: PT OWN MED DRAWER 7, Y5N ONE ×2 (16:22→18:24)
[2018-06-10] MEDS: THIAMINE HCL 100 MG TABLET (FP) PO SCH (21:19)
[2018-06-10] MEDS: QUEtiapine FUMARATE 400 MG TABLET PO SCH (21:20)
[2018-06-10] MEDS: LIDOCAINE PATCH REMOVAL MC SCH (21:20)
[2018-06-10] MEDS: AMITRIPTYLINE HCL 100 MG TABLET PO SCH (21:20)
[2018-06-11] MEDS: hydrOXYzine PAMOATE 50 MG CAPSULE (FP) PO PRN ×4 (06:11→23:36)
[2018-06-11] MEDS: BACLOFEN 10 MG TABLET (FP) PO SCH ×2 (06:11→17:29)
[2018-06-11] MEDS: METHADONE HCL 40 MG DISPERSABLE TABLET PO SCH (06:11)
--- NOTE | 2018-06-11 09:16 | PN ---
Psychiatric Progress Note Vital Signs: Vital Signs Period Temp Pulse Resp BP Sys/Lieberman Pulse Ox Last 24 Hr 98.2 F 102 18-18 139/98 Date of Session: 06/11/18 Chief Complaint:: I feel drowsy from Seroquel next morning. HPI: Patient addressed Opioid,Anxiolytic and Alcohol dependence comorbid with Substance induced mood disorder. ROS: Unremarkable Current Medications: Active Medications Generic Name Dose Route Start Last Admin Trade Name Freq PRN Reason Stop Dose Admin Acetaminophen 650 mg 05/28/18 14:51 Tylenol - PO Q4H PRN FEVER Al Hydroxide/Mg Hydroxide 30 ml 05/28/18 14:51 06/06/18 13:46 Mylanta Oral Suspension - PO 30 ml Q6H PRN Administration DYSPEPSIA Amitriptyline HCl 100 mg 06/05/18 22:00 06/10/18 21:20 Elavil - PO 100 mg HS GUILLERMO Administration Amitriptyline HCl 50 mg 06/05/18 17:00 06/10/18 16:56 Elavil - PO 50 mg BID@1000,1700 GUILLERMO Administration Bacitracin 0.9 gm 05/29/18 22:00 06/10/18 21:19 Bacitracin - TP 0.9 gm BID GUILLERMO Administration Baclofen 10 mg 06/06/18 18:00 06/11/18 06:11 Lioresal - PO 10 mg BID@0600,1800 GUILLERMO Administration Bupropion HCl 300 mg 05/29/18 10:00 06/10/18 09:32 Wellbutrin Xl - PO 300 mg DAILY GUILLERMO Administration Clonidine 0.1 mg 06/07/18 11:15 06/10/18 09:32 Catapres - PO 0.1 mg DAILY GUILLERMO Administration Eucalyptus/Menthol/Phenol/Sorbitol 1 each 05/28/18 14:51 Cepastat Lozenge - MM Q4H PRN SORE THROAT Guaifenesin 10 ml 05/28/18 14:51 Robitussin Dm - PO Q6H PRN COUGH Hydroxyzine Pamoate 50 mg 05/30/18 14:56 06/11/18 06:11 Vistaril - PO 50 mg Q4H PRN Administration ANXIETY Ibuprofen 400 mg 05/28/18 14:51 05/28/18 21:30 Motrin - PO 400 mg Q6H PRN Administration Pain Level 4-6 Lidocaine 1 patch 05/30/18 10:00 06/10/18 09:32 Lidoderm Patch - TP 1 patch DAILY GUILLERMO Administration Loperamide HCl 4 mg 05/28/18 14:51 Imodium - PO Q6H PRN DIARRHEA Magnesium Citrate 300 ml 05/28/18 14:51 Citroma - PO Q48H PRN CONSTIPATION Magnesium Hydroxide 30 ml 05/28/18 14:51 Milk Of Magnesia - PO DAILY PRN CONSTIPATION Melatonin 5 mg 05/28/18 22:00 06/02/18 21:26 Melatonin PO 5 mg HS PRN Administration INSOMNIA Methadone HCl 200 mg 06/10/18 06:00 06/11/18 06:11 Dolophine - PO 06/17/18 05:59 200 mg DAILY@0600 GUILLERMO Administration Miscellaneous 1 each 05/29/18 22:00 06/10/18 21:20 Lidoderm Patch Removal MC Not Given DAILY@2200 GUILLERMO Nicotine 21 mg 05/29/18 10:00 06/10/18 09:32 Nicoderm Patch - TD Not Given DAILY GUILLERMO Nicotine Polacrilex 2 mg 05/28/18 14:51 Nicorette Gum - BUC Q2H PRN NICOTINE REPLACEMENT RX Phenytoin Sodium 100 mg 05/28/18 22:00 06/10/18 21:20 Dilantin - PO 100 mg BID GUILLERMO Administration Multivit/Folic Acid/Iron 1 tab 05/29/18 10:00 06/10/18 09:32 Vitamins (Sjr) - PO 1 tab DAILY GUILLERMO Administration Pseudoephedrine/Triprolidine 1 combo 05/28/18 14:51 06/10/18 18:02 Actifed - PO 1 combo TID PRN Administration NASAL CONGESTION Quetiapine Fumarate 400 mg 05/28/18 22:00 06/10/18 21:20 Seroquel - PO 400 mg HS GUILLERMO Administration Ranitidine HCl 150 mg 05/28/18 22:00 06/10/18 21:19 Zantac - PO 150 mg BID GUILLERMO Administration Thiamine HCl 100 mg 05/28/18 22:00 06/10/18 21:19 Vitamin B1 - PO 100 mg HS GUILLERMO Administration Vitamin A/Vitamin D 1 applic 05/29/18 22:00 06/10/18 22:33 Vitamin A & D Top Oint - TP Not Given BID GUILLERMO Current Side Effect: No Lab tests ordered: No Lab tests reviewed: Yes Provider note:: Chart was revuewed,patient was seen in my office,treatment plan, including medication management has been discussed with patient.Properties of Seroquel has been discussed including side effects,benefits and dose adjustment.Continue Elavil,Wellbutrin XL 300 mg po am.D/C Seroquel. Supportive therapy provided. Total face to face time:: 35 Mental Status Exam - Mental Status Exam Alert and Oriented to: Time, Place, Person Cognitive Function: Grossly Intact Patient Appearance: Unkempt Mood: Anxious, Apprehensive Affect: Mood Congruent, Labile Patient Behavior: Talkative, Cooperative Speech Pattern: Clear Voice Loudness: Normal Thought Process: Goal Oriented Thought Disorder: Not Present Hallucinations: Denies Suicidal Ideation: Denies Homicidal Ideation: Denies Insight/Judgement: Fair Sleep: Fair Appetite: Good Muscle strength/Tone: Normal Gait/Station: Normal
[2018-06-11] MEDS: RANITIDINE HCL 150 MG TABLET (FP) PO SCH ×2 (09:31→21:34)
[2018-06-11] MEDS: PRENATAL VITAMINS W/ FOLIC ACID TABLET (FP) PO SCH (09:31)
[2018-06-11] MEDS: AMITRIPTYLINE HCL 25 MG TABLET (FP) PO SCH ×2 (09:32→16:59)
[2018-06-11] MEDS: cloNIDine HCL 0.1 MG TABLET PO SCH (09:32)
[2018-06-11] MEDS: LIDOCAINE 5% TOPICAL PATCH TP SCH (09:32)
[2018-06-11] MEDS: PHENYTOIN NA EXTENDED 100 MG CAPSULE (FP) PO SCH ×2 (09:33→21:34)
[2018-06-11] MEDS: BACITRACIN 0.9 GM PACKET TP SCH ×2 (09:34→21:33)
[2018-06-11] MEDS: NICOTINE 21 MG/24 HOURS TOPICAL PATCH TD SCH (11:49)
[2018-06-11] MEDS: VITAMINS A AND D TOPICAL OINTMENT 60 GM TUBE TP SCH ×2 (11:49→21:37)
[2018-06-11] MEDS: traZODone HCL 100 MG TABLET (FP) PO SCH (21:33)
[2018-06-11] MEDS: THIAMINE HCL 100 MG TABLET (FP) PO SCH (21:33)
[2018-06-11] MEDS: AMITRIPTYLINE HCL 100 MG TABLET PO SCH (21:33)
[2018-06-11] MEDS: LIDOCAINE PATCH REMOVAL MC SCH (21:33)
[2018-06-11] MEDS: MELATONIN 5 MG TABLETS PO PRN (21:35)
[2018-06-11] MEDS: MIRTAZAPINE 15 MG TABLET (FP) PO SCH (21:36)
[2018-06-12] MEDS: BACLOFEN 10 MG TABLET (FP) PO SCH ×2 (05:55→17:08)
[2018-06-12] MEDS: hydrOXYzine PAMOATE 50 MG CAPSULE (FP) PO PRN ×4 (05:55→21:12)
[2018-06-12] MEDS: METHADONE HCL 40 MG DISPERSABLE TABLET PO SCH (05:55)
[2018-06-12] MEDS ORDERED: cloNIDine HCL 0.1 MG TABLET PO ONE (07:00)
--- NOTE | 2018-06-12 09:18 | PN ---
Psychiatric Progress Note Vital Signs: Vital Signs Period Temp Pulse Resp BP Sys/Lieberman Pulse Ox Last 24 Hr 98 F 98-122 18-20 132-152/96-98 Date of Session: 06/12/18 Chief Complaint:: Discharge Note HPI: Patient addressing Alcohol and Sedative Dependence comorbid with Opioid Dependence on Agonist Therapy, Nicotine Dependence, Mood Disorder, Posttraumatic Stress Disorder, Substance-Induced Mood Disorder and Substance- Induced Sleep Disorder ROS: GERD, Hep C Current Medications: Active Medications Generic Name Dose Route Start Last Admin Trade Name Freq PRN Reason Stop Dose Admin Acetaminophen 650 mg 05/28/18 14:51 06/11/18 17:00 Tylenol - PO 650 mg Q4H PRN Administration FEVER Al Hydroxide/Mg Hydroxide 30 ml 05/28/18 14:51 06/06/18 13:46 Mylanta Oral Suspension - PO 30 ml Q6H PRN Administration DYSPEPSIA Amitriptyline HCl 100 mg 06/05/18 22:00 06/11/18 21:33 Elavil - PO 100 mg HS GUILLERMO Administration Amitriptyline HCl 50 mg 06/05/18 17:00 06/11/18 16:59 Elavil - PO 50 mg BID@1000,1700 GUILLERMO Administration Bacitracin 0.9 gm 05/29/18 22:00 06/11/18 21:33 Bacitracin - TP 0.9 gm BID GUILLERMO Administration Baclofen 10 mg 06/06/18 18:00 06/12/18 05:55 Lioresal - PO 10 mg BID@0600,1800 GUILLERMO Administration Bupropion HCl 300 mg 05/29/18 10:00 06/11/18 09:32 Wellbutrin Xl - PO 300 mg DAILY GUILLERMO Administration Clonidine 0.1 mg 06/07/18 11:15 06/11/18 09:32 Catapres - PO 0.1 mg DAILY GUILLERMO Administration Eucalyptus/Menthol/Phenol/Sorbitol 1 each 05/28/18 14:51 Cepastat Lozenge - MM Q4H PRN SORE THROAT Guaifenesin 10 ml 05/28/18 14:51 Robitussin Dm - PO Q6H PRN COUGH Hydroxyzine Pamoate 50 mg 05/30/18 14:56 06/12/18 05:55 Vistaril - PO 50 mg Q4H PRN Administration ANXIETY Ibuprofen 400 mg 05/28/18 14:51 05/28/18 21:30 Motrin - PO 400 mg Q6H PRN Administration Pain Level 4-6 Lidocaine 1 patch 05/30/18 10:00 06/11/18 09:32 Lidoderm Patch - TP 1 patch DAILY GUILLERMO Administration Loperamide HCl 4 mg 05/28/18 14:51 Imodium - PO Q6H PRN DIARRHEA Magnesium Citrate 300 ml 05/28/18 14:51 Citroma - PO Q48H PRN CONSTIPATION Magnesium Hydroxide 30 ml 05/28/18 14:51 Milk Of Magnesia - PO DAILY PRN CONSTIPATION Melatonin 5 mg 05/28/18 22:00 06/11/18 21:35 Melatonin PO 5 mg HS PRN Administration INSOMNIA Methadone HCl 200 mg 06/10/18 06:00 06/12/18 05:55 Dolophine - PO 06/17/18 05:59 200 mg DAILY@0600 GUILLERMO Administration Mirtazapine 15 mg 06/11/18 22:00 06/11/18 21:36 Remeron - PO 15 mg HS GUILLERMO Administration Miscellaneous 1 each 05/29/18 22:00 06/11/18 21:33 Lidoderm Patch Removal MC 1 each DAILY@2200 GUILLERMO Administration Nicotine 21 mg 05/29/18 10:00 06/11/18 11:49 Nicoderm Patch - TD Not Given DAILY GUILLERMO Nicotine Polacrilex 2 mg 05/28/18 14:51 Nicorette Gum - BUC Q2H PRN NICOTINE REPLACEMENT RX Phenytoin Sodium 100 mg 05/28/18 22:00 06/11/18 21:34 Dilantin - PO 100 mg BID GUILLERMO Administration Multivit/Folic Acid/Iron 1 tab 05/29/18 10:00 06/11/18 09:31 Vitamins (Sjr) - PO 1 tab DAILY GUILLERMO Administration Pseudoephedrine/Triprolidine 1 combo 05/28/18 14:51 06/10/18 18:02 Actifed - PO 1 combo TID PRN Administration NASAL CONGESTION Ranitidine HCl 150 mg 05/28/18 22:00 06/11/18 21:34 Zantac - PO 150 mg BID GUILLERMO Administration Thiamine HCl 100 mg 05/28/18 22:00 06/11/18 21:33 Vitamin B1 - PO 100 mg HS GUILLERMO Administration Trazodone HCl 100 mg 06/11/18 22:00 06/11/18 21:33 Desyrel - PO 100 mg HS GUILLERMO Administration Vitamin A/Vitamin D 1 applic 05/29/18 22:00 06/11/18 21:37 Vitamin A & D Top Oint - TP 1 applic BID GUILLERMO Administration Current Side Effect: No Lab tests ordered: Yes Lab tests reviewed: Yes Provider note:: Patient will complete this program on 06/13/18. He has met his treatment goals and will continue to address his issues in half-way residential treatment at [facility]. 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 He responded well to Wellbutrin XL 300 mg po daily , Elavil 50 mg BID & 100 mg HS, Remeron 15 mg po HS and Trazadone 100 mg po HS. Scripts for this medications will be electronically transmitted to [facility] at [phone] [place] [address]. He is stable for discharge on 06/13/18 Total face to face time:: 35 Mental Status Exam - Mental Status Exam Alert and Oriented to: Time, Place, Person Cognitive Function: Fair Patient Appearance: Well Groomed Mood: Hopeful, Euthymic Affect: Appropriate Patient Behavior: Cooperative Speech Pattern: Clear Voice Loudness: Normal Thought Process: Intact, Goal Oriented Thought Disorder: Not Present Hallucinations: Denies Suicidal Ideation: Denies Homicidal Ideation: Denies Insight/Judgement: Fair Sleep: Fair Appetite: Good Muscle strength/Tone: Normal Gait/Station: Normal Psychiatric Treatment Plan - Problem List (1) Alcohol dependence Current Visit: Yes (2) Sedative hypnotic or anxiolytic dependence Current Visit: Yes (3) Opioid dependence on agonist therapy Current Visit: Yes (4) Nicotine dependence Current Visit: No Qualifiers: Nicotine product type: cigarettes Substance use status: in withdrawal Qualified Code(s): F17.213 - Nicotine dependence, cigarettes, with withdrawal (5) Mood disorder Current Visit: No (6) PTSD (post-traumatic stress disorder) Current Visit: Yes (7) Substance induced mood disorder Current Visit: Yes (8) Substance-induced sleep disorder Current Visit: Yes (9) GERD (gastroesophageal reflux disease) Current Visit: No Qualifiers: Esophagitis presence: without esophagitis Qualified Code(s): K21.9 - Gastro -esophageal reflux disease without esophagitis (10) Hepatitis C Current Visit: No Qualifiers: Viral hepatitis chronicity: unspecified Hepatic coma status: without hepatic coma Qualified Code(s): B19.20 - Unspecified viral hepatitis C without hepatic coma (11) Hx of mitral valve prolapse Current Visit: No (12) Hx of seizure disorder Current Visit: No Initial treatment plan: Patient will be discharged tomorrow and referred to [facility] worker [facility]
[2018-06-12] MEDS: BACITRACIN 0.9 GM PACKET TP SCH ×2 (09:44→21:11)
[2018-06-12] MEDS: RANITIDINE HCL 150 MG TABLET (FP) PO SCH ×2 (09:44→21:11)
[2018-06-12] MEDS: NICOTINE 21 MG/24 HOURS TOPICAL PATCH TD SCH (09:44)
[2018-06-12] MEDS: PHENYTOIN NA EXTENDED 100 MG CAPSULE (FP) PO SCH ×2 (09:44→21:11)
[2018-06-12] MEDS: PRENATAL VITAMINS W/ FOLIC ACID TABLET (FP) PO SCH (09:44)
[2018-06-12] MEDS: cloNIDine HCL 0.1 MG TABLET PO SCH (09:45)
[2018-06-12] MEDS ORDERED: PT OWN MED DRAWER 7, Y5N ONE (09:48)
[2018-06-12] MEDS: AMITRIPTYLINE HCL 25 MG TABLET (FP) PO SCH ×2 (09:48→17:08)
[2018-06-12] MEDS: VITAMINS A AND D TOPICAL OINTMENT 60 GM TUBE TP SCH ×2 (09:48→21:13)
[2018-06-12] MEDS: LIDOCAINE 5% TOPICAL PATCH TP SCH (09:48)
[2018-06-12] MEDS: THIAMINE HCL 100 MG TABLET (FP) PO SCH (21:11)
[2018-06-12] MEDS: traZODone HCL 100 MG TABLET (FP) PO SCH (21:11)
[2018-06-12] MEDS: AMITRIPTYLINE HCL 100 MG TABLET PO SCH (21:11)
[2018-06-12] MEDS: MIRTAZAPINE 15 MG TABLET (FP) PO SCH (21:11)
[2018-06-12] MEDS: LIDOCAINE PATCH REMOVAL MC SCH (21:13)
[2018-06-13] MEDS: hydrOXYzine PAMOATE 50 MG CAPSULE (FP) PO PRN (06:06)
[2018-06-13] MEDS: BACLOFEN 10 MG TABLET (FP) PO SCH (06:06)
[2018-06-13] MEDS: METHADONE HCL 40 MG DISPERSABLE TABLET PO SCH (06:07)
[2018-06-13 06:37] VITALS: BP 137/87; PULSE 110; TEMP 98.4
[2018-06-13] MEDS ORDERED: LIDOCAINE 5% TOPICAL PATCH TP ONE (07:00)
[2018-06-13] MEDS ORDERED: AMITRIPTYLINE HCL 25 MG TABLET (FP) PO ONE (07:00)
[2018-06-13] MEDS ORDERED: PHENYTOIN NA EXTENDED 100 MG CAPSULE (FP) PO ONE (07:00)
[2018-06-13] MEDS ORDERED: cloNIDine HCL 0.1 MG TABLET PO ONE (07:00)
[2018-06-13] MEDS ORDERED: RANITIDINE HCL 150 MG TABLET (FP) PO ONE (07:00)
[2018-06-13] MEDS ORDERED: PT OWN MED DRAWER 7, Y5N ONE (08:58)
== END 2018-06-13 08:18 | disposition home or self-care (01) | DRG 772 ==
LOC: YASAS 12:38 → Y3W 12:39
PROVIDERS: ADMIT Psychiatry & Neurology Psychiatry; ATTEND Psychiatry & Neurology Psychiatry
PROC: HZ42ZZZ Group Counseling for Substance Abuse Treatment, Cognitive-Behavioral (ICD-10-PCS; principal; 2018-05-28)
DX: F10.20 Alcohol dependence, uncomplicated (principal); F11.20 Opioid dependence, uncomplicated; F13.20 Sedative, hypnotic or anxiolytic dependence, uncomplicated; F17.213 Nicotine dependence, cigarettes, with withdrawal; F39 Unspecified mood [affective] disorder; F43.10 Post-traumatic stress disorder, unspecified; F19.24 Other psychoactive substance dependence with psychoactive substance-induced mood disorder; F19.282 Other psychoactive substance dependence with psychoactive substance-induced sleep disorder; F41.9 Anxiety disorder, unspecified; K21.9 Gastro-esophageal reflux disease without esophagitis; B19.20 Unspecified viral hepatitis C without hepatic coma; I34.1 Nonrheumatic mitral (valve) prolapse; G25.1 Drug-induced tremor; R03.0 Elevated blood-pressure reading, without diagnosis of hypertension; L98.8 Other specified disorders of the skin and subcutaneous tissue; L84 Corns and callosities; M54.9 Dorsalgia, unspecified; Z86.69 Personal history of other diseases of the nervous system and sense organs
CPT/HCPCS: 36415; 80048; 82962; J0475; J0735

== ENCOUNTER 2018-09-19 13:48 | Inpatient (IN) | payer OTHER ==
[2018-09-19 15:55] VITALS: BMI 24.4
--- NOTE | 2018-09-19 21:03 | HP ---
"CIWA Score Nausea/Vomitin-Cont. Nausea/Vomiting Muscle Tremors: 6 Anxiety: 4-Mod. Anxious/Guarded Agitation: 4-Moderately Restless Paroxysmal Sweats: 3 Orientation: 1-Uncertain about Date Tacttile Disturbances: 0-None Auditory Disturbances: 0-None Visual Disturbances: 0-None Headache: 3-Moderate CIWA-Ar Total Score: 28 - Admission Criteria OASAS Guidelines: Admission for Medically Managed Detox: Requires at least one of the followin. CIWA greater than 12 2. Seizures within the past 24 hours 3. Delirium tremens within the past 24 hours 4. Hallucinations within the past 24 hours 5. Acute intervention needed for co occurring medical disorder 6. Acute intervention needed for co occurring psychiatric disorder 7. Severe withdrawal that cannot be handled at a lower level of care (continued vomiting, continued diarrhea, abnormal vital signs) requiring intravenous medication and/or fluids 8. Patient presents the following: CIWA greater than 12 Admission Criteria Met: Admission criteria met Admission ROS S - HPI Chief Complaint: Here for alcohol withdrawal. Allergies/Adverse Reactions: Allergies Allergy/AdvReac Type Severity Reaction Status Date / Time No Known Allergies Allergy Verified 09/19/18 19:16 History of Present Illness: Alcohol use started at age 13. Heroin use started at age 17. States currently on 210 mg Methadone. States in [facility] x 7 years. Currently enrolled at [facility]. Needs methadone verification. Hx. Seizures (02/2018) - on Dilantin. States missed doses of Dilantin caused seizures. Denies blackouts or overdose. States hx Pancreatitis, Mitral valve stenosis, GERD. States tx'd for Hepatitis C. States was taking illicit Xanax until 4 days ago. Longest sobriety from alcohol 12 days. Search Terms: Archie Cartagena, 1990 Search Date: 09/19/2018 08:47:57 PM The Drug Utilization Report below displays all of the controlled substance prescriptions, if any, that your patient has filled in the last twelve months. The information displayed on this report is compiled from pharmacy submissions to the Department, and accurately reflects the information as submitted by the pharmacies. This report was requested by: Chika Vance | Reference #: [id number] There are no results for the search terms that you entered. Exam Limitations: No Limitations - Ebola screening Have you traveled outside of the country in the last 21 days: No Have you had contact with anyone from an Ebola affected area: No Have you been sick,other than usual withdrawal symptoms: No Do you have a fever: No - Review of Systems Constitutional: Chills, Diaphoresis, Changes in sleep (Difficulty falling asleep ) EENT: reports: Dental Problems (No teeth. Chews and swallows ok) Respiratory: reports: No Symptoms reported Cardiac: reports: Other (Hx Mitral stenosis) GI: reports: Nausea (r/t withdrawal), Vomiting (r/t withdrawal) : reports: No Symptoms Reported Musculoskeletal: reports: No Symptoms Reported Integumentary: reports: No Symptoms Reported Neuro: reports: Headache (r/t withdrawal), Tremors (r/t withdrawal) Endocrine: reports: Increased Thirst Hematology: reports: No Symptoms Reported Psychiatric: reports: Judgement Intact, Orientated x3, Agitated, Anxious, Depressed (Denies thoughts of harming self or others.) Patient History - Patient Medical History Hx Anemia: No Hx Asthma: No Hx Chronic Obstructive Pulmonary Disease (COPD): No Hx Cancer: No Hx Cardiac Disorders: Yes (mitral valve stenosis) Hx Congestive Heart Failure: No Hx Hypertension: No Hx Hypercholesterolemia: No Hx Pacemaker: No HX Cerebrovascular Accident: No Hx Seizures: Yes (last episode was in 02/2018) Hx Dementia: No Hx Diabetes: No Hx Gastrointestinal Disorders: Yes (GERD and GI ulcer) Hx Liver Disease: No Hx Genitourinary Disorders: No Hx Sexually Transmitted Disorders: No Hx Renal Disease (ESRD): No Hx Thyroid Disease: No Hx Human Immunodeficiency Virus (HIV): No (neg.jun 2015) Hx Hepatitis C: Yes Hx Depression: Yes Hx Suicide Attempt: No Hx Bipolar Disorder: No Hx Schizophrenia: No - Patient Surgical History Past Surgical History: No Hx Neurologic Surgery: No Hx Cataract Extraction: No Hx Cardiac Surgery: No Hx Lung Surgery: No Hx Breast Surgery: No Hx Breast Biopsy: No Hx Abdominal Surgery: No Hx Appendectomy: No Hx Cholecystectomy: No Hx Genitourinary Surgery: No Hx Section: No Hx Orthopedic Surgery: No Anesthesia Reaction: No - PPD History Previous Implant?: Yes Documented Results: Negative w/o proof Implanted On Prior R Admission?: Yes Date: 05/25/18 Results: 0 mm PPD to be Administered?: No - Smoking Cessation Smoking history: Current every day smoker Have you smoked in the past 12 months: Yes Aproximately how many cigarettes per day: 4 Cigars Per Day: 0 Hx Chewing Tobacco Use: No Initiated information on smoking cessation: Yes 'Breaking Loose' booklet given: 09/19/18 - Substance & Tx. History Hx Alcohol Use: Yes Hx Substance Use: Yes Substance Use Type: Alcohol, Heroin Hx Substance Use Treatment: Yes (detox, rehab on MMTP) - Substances Abused Alcohol Route: Oral Frequency: Daily Amount used: 1 PINT VODKA Age of first use: 13 Family Disease History - Family Disease History Family Disease History: Other: Mother (disable), Sister (pots/dysautonomia/ disable) Admission Physical Exam [facility] - Vital Signs Vital Signs: Vital Signs - 24 hr 09/19/18 15:53 Temperature 96.8 F L Pulse Rate 84 Respiratory 20 Rate Blood Pressure 123/71 - Physical General Appearance: Yes: Moderate Distress, Tremorous, Irritable, Sweating, Anxious HEENTM: Yes: EOMI, Hearing grossly Normal, Normocephalic, [place] (Pipils = 5 mm), Rhinorrhea Respiratory: Yes: Lungs Clear, Normal Breath Sounds, No Respiratory Distress Neck: Yes: No masses,lesions,Nodules, Supple Breast: Yes: Breast Exam Deferred Cardiology: Yes: Regular Rhythm, Regular Rate, S1, S2, Murmur Abdominal: Yes: Non Tender, Flat, Soft, Increased Bowel Sounds Genitourinary: Yes: Within Normal Limits Back: Yes: Normal Inspection Musculoskeletal: Yes: full range of Motion, Gait Steady Extremities: Yes: Normal Capillary Refill, Normal Range of Motion, Non-Tender, Tremors (tremors at rest and increases w/ arm elevation) Neurological: Yes: hospice director II-XII NML intact, Fully Oriented, Alert, Motor Strength 5/5, Normal Mood/Affect, Normal Response Integumentary: Yes: Normal Color, Dry (Decreased skin turgor.), Warm Lymphatic: Yes: Within Normal Limits - Diagnostic (1) Alcohol dependence with uncomplicated withdrawal Current Visit: No Status: Acute (2) GERD (gastroesophageal reflux disease) Current Visit: No Status: Chronic Qualifiers: Esophagitis presence: without esophagitis Qualified Code(s): K21.9 - Gastro -esophageal reflux disease without esophagitis (3) Hx of mitral valve prolapse Current Visit: Yes Status: Chronic Comment: Murmur present. (4) Hx of seizure disorder Current Visit: Yes Status: Chronic (5) Nicotine dependence Current Visit: No Status: Chronic Qualifiers: Nicotine product type: cigarettes Substance use status: uncomplicated Qualified Code(s): F17.210 - Nicotine dependence, cigarettes, uncomplicated (6) Opioid dependence on agonist therapy Current Visit: Yes Status: Chronic (7) Dehydration Current Visit: Yes Status: Acute Cleared for Admission S - Detox or Rehab [facility] Level of Care: Medically Managed Detox Regimen/Protocol: Librium S Breath Alcohol Content Breath Alcohol Content: 0.147 Urine Drug Screen - Results Drug Screen Negative: No Urine Drug Screen Results: MTD-Methadone"
[2018-09-19] MEDS ORDERED: MAGNESIUM CITRATE 300 ML BOTTLE PO PRN (21:18)
[2018-09-19] MEDS ORDERED: IBUPROFEN 400 MG TABLET (FP) PO PRN (21:18)
[2018-09-19] MEDS ORDERED: MAGNESIUM HYDROX 2400MG/30ML ORAL SUSPENSION 30 ML CUP PO PRN (21:18)
[2018-09-19] MEDS ORDERED: LOPERAMIDE HCL 2 MG CAPSULE PO PRN (21:18)
[2018-09-19] MEDS ORDERED: ACETAMINOPHEN 325 MG TABLET (FP) PO PRN (21:18)
[2018-09-19] MEDS ORDERED: chlordiazePOXIDE HCL 25 MG CAPSULE PO ONE (21:18)
[2018-09-19] MEDS ORDERED: NICOTINE POLACRILEX 2 MG GUM BUC PRN (21:18)
[2018-09-19] MEDS ORDERED: MAG HYDROX/AL HYDROX/SIMETH 30 ML UNIT-DOSE CUP PO PRN (21:18)
[2018-09-19] MEDS ORDERED: chlordiazePOXIDE HCL 25 MG CAPSULE PO PRN (21:18)
[2018-09-19] MEDS ORDERED: MENTHOL/PHENOL 1 EACH UD MM PRN (21:18)
[2018-09-19] MEDS ORDERED: MELATONIN 5 MG TABLETS PO PRN (22:00)
[2018-09-19] MEDS: THIAMINE HCL 100 MG TABLET (FP) PO SCH (22:46)
[2018-09-19] MEDS: PHENYTOIN NA EXTENDED 100 MG CAPSULE (FP) PO SCH (22:46)
[2018-09-19] MEDS: chlordiazePOXIDE HCL 25 MG CAPSULE PO SCH (22:47)
[2018-09-20 02:54] LABS: URINE APPEARANCE CLEAR; URINE BILIRUBIN NEGATIVE (<2.0 mg/dL); URINE COLOR STRAW; URINE GLUCOSE (UA) NEGATIVE (NEGATIVE); URINE KETONE NEGATIVE (NEGATIVE); URINE LEUK ESTERASE TRACE (NEGATIVE); URINE NITRITE NEGATIVE (NEGATIVE); URINE PROTEIN NEGATIVE (NEGATIVE); URINE UROBILINOGEN NEGATIVE mg/dL (0.2-1.0)
[2018-09-20 03:11] LABS: URINE BACTERIA RARE /hpf (NONE SEEN)
[2018-09-20] MEDS: chlordiazePOXIDE HCL 25 MG CAPSULE PO SCH ×4 (06:09→22:20)
--- NOTE | 2018-09-20 08:20 | CONSULT ---
[facility] Psychiatric Consult - Data Date of interview: 09/20/18 Admission source: [facility] Identifying data: This is 28 years old male, single, unemployed, domiciled, with no psychiatric hospitalization history, multiple medical issues history, with Alcohol, Opioids, Cannabis, Benzodiazepins dependence, reporting withdrawal symptoms and seeking for detox. Denies suicidal, homicidal history. Substance Abuse History: Smoking history: Current every day smoker. Have you smoked in the past 12 months: Yes. Aproximately how many cigarettes per day: 4. Cigars Per Day: 0. Hx Chewing Tobacco Use: No. Initiated information on smoking cessation: Yes. 'Breaking Loose' booklet given: 09/19/18. - Substance & Tx. History. Hx Alcohol Use: Yes. Hx Substance Use: Yes. Substance Use Type : Alcohol, Heroin. Hx Substance Use Treatment: Yes (detox, rehab on [facility]). - Substances Abused. Alcohol. Route: Oral. Frequency: Daily. Amount used: 1 PINT VODKA. Age of first use: 13 Medical History: Mitral Valve Prolapse history, MMTP 210MG POQD, LBP, Weigth loss history, Seizure history, HepC+, GERD, Psychiatric History: Patient reports history of depression and anxiety, [id number] with psychiatric medications, denies spsychioatric hospitalization history, suicidal and homicidal history, reports currently taking : Remeron 30mg po qhs. Trazodone 150mg po qhs. Elavil 100mg po qhs. Wellbutrin XL 300mg poqd, 150mg po 12pm Physical/Sexual Abuse/Trauma History: Denies Additional Comment: Remeron 30mg po qhs. Trazodone 150mg po qhs. Elavil 100mg po qhs. Wellbutrin XL 300mg poqd, 150mg po 12pm. Methadone 210mg poqd at [facility] Mental Status Exam - Mental Status Exam Alert and Oriented to: Place, Person Cognitive Function: Fair Patient Appearance: Well Groomed Mood: Apprehensive Affect: Mood Congruent Patient Behavior: Cooperative Speech Pattern: Appropriate Voice Loudness: Normal Thought Process: Goal Oriented Thought Disorder: Being Controlled Hallucinations: Denies Suicidal Ideation: Denies Homicidal Ideation: Denies Insight/Judgement: Fair Sleep: Difficulty falling asleep Appetite: Weight loss Muscle strength/Tone: Normal Gait/Station: Normal Additional Comments: Remeron 30mg po qhs. Trazodone 150mg po qhs. Elavil 100mg po qhs. Wellbutrin XL 300mg poqd, 150mg po 12pm. Methadone 210mg poqd at [facility] Psychiatric Findings - Problem List ([place] 1, 2,3) (1) Alcohol dependence with uncomplicated withdrawal Current Visit: Yes Status: Acute (2) Hx of mitral valve prolapse Current Visit: Yes Status: Chronic Comment: Murmur present. (3) Hx of seizure disorder Current Visit: Yes Status: Chronic (4) Alcohol dependence Current Visit: No Status: Acute (5) Marijuana dependence Current Visit: No Status: Acute (6) Sedative hypnotic or anxiolytic dependence Current Visit: No Status: Acute (7) Substance induced mood disorder Current Visit: No Status: Acute (8) Substance-induced sleep disorder Current Visit: No Status: Acute (9) Substance-induced sleep disorder Current Visit: No Status: Acute (10) Weight loss Current Visit: No Status: Acute (11) Drug-induced mood disorder Current Visit: No Status: Chronic (12) GERD (gastroesophageal reflux disease) Current Visit: No Status: Chronic Qualifiers: Esophagitis presence: without esophagitis Qualified Code(s): K21.9 - Gastro -esophageal reflux disease without esophagitis (13) Hepatitis C Current Visit: No Status: Chronic Qualifiers: Viral hepatitis chronicity: unspecified Hepatic coma status: without hepatic coma Qualified Code(s): B19.20 - Unspecified viral hepatitis C without hepatic coma (14) Methadone maintenance therapy patient Current Visit: No Status: Chronic (15) Nicotine dependence Current Visit: No Status: Chronic Qualifiers: Nicotine product type: cigarettes Substance use status: uncomplicated Qualified Code(s): F17.210 - Nicotine dependence, cigarettes, uncomplicated (16) PTSD (post-traumatic stress disorder) Current Visit: No Status: Chronic (17) Sedative dependence Current Visit: No Status: Chronic (18) Withdrawal seizures Current Visit: No Status: Chronic - Initial Treatment Plan Initial Treatment Plan: Remeron 30mg po qhs. Trazodone 150mg po qhs. Elavil 100mg po qhs. Wellbutrin XL 300mg poqd, 150mg po 12pm. Methadone 210mg poqd at [facility]
[2018-09-20] MEDS ORDERED: METHADONE HCL 10 MG TABLET PO SCH (08:45)
[2018-09-20] MEDS ORDERED: METHADONE HCL 40 MG DISPERSABLE TABLET ONE (09:40)
[2018-09-20] MEDS ORDERED: METHADONE HCL 10 MG TABLET ONE (09:40)
[2018-09-20 10:20] LABS: HEMATOCRIT 40.1 % (35.4-49); HEMOGLOBIN 13.4 GM/dL (11.7-16.9); MCH 31.3 pg (25.7-33.7); MCHC 33.3 g/dl (32.0-35.9); MEAN CELL VOLUME 93.9 fl (80-96); MEAN PLT VOLUME 7.7 fl (7.5-11.1); PLATELET COUNT 222 K/MM3 (134-434); RBC 4.27 M/mm3 (4.00-5.60); RDW 13.2 % (11.9-15.9); WHITE BLOOD COUNT 5.9 K/mm3 (4.0-10.0)
[2018-09-20 10:46] LABS: ALK PHOS 79 U/L (45-117); ANION GAP 8 MMOL/L (8-16); BILIRUBIN,TOTAL 0.3 mg/dL (0.2-1); BLOOD UREA NITROGEN 16 mg/dL (7-18); CALCIUM 8.9 mg/dL (8.5-10.1); CHLORIDE 100 mmol/L (98-107); CO2 31 mmol/L (21-32); CREATININE 0.7 mg/dL (0.55-1.3); GLUCOSE,RANDOM 90 mg/dL (74-106); POTASSIUM 3.9 mmol/L (3.5-5.1); SGOT/AST 15 U/L (15-37); SGPT/ALT 19 U/L (13-61); SODIUM 139 mmol/L (136-145); TOT PROT 6.8 g/dl (6.4-8.2)
[2018-09-20] MEDS: PRENATAL VITAMINS W/ FOLIC ACID TABLET (FP) PO SCH (10:59)
[2018-09-20] MEDS: PANTOPRAZOLE 40 MG TABLET (FP) PO SCH (11:00)
[2018-09-20] MEDS: METHADONE 200 MG, METHADONE 10 MG PO SCH (11:00)
[2018-09-20] MEDS: PHENYTOIN NA EXTENDED 100 MG CAPSULE (FP) PO SCH ×2 (11:03→22:20)
--- NOTE | 2018-09-20 11:55 | EKG ---
Test Reason : Blood Pressure : / mmHG Vent. Rate : 092 BPM Atrial Rate : 092 BPM P-R Int : 146 ms QRS Dur : 082 ms QT Int : 322 ms P-R-T Axes : 066 083 051 degrees QTc Int : 398 ms NORMAL SINUS RHYTHM NONSPECIFIC T WAVE ABNORMALITY ABNORMAL ECG WHEN COMPARED WITH ECG OF 23-MAY-2018 16:30, NONSPECIFIC T WAVE ABNORMALITY NOW EVIDENT IN ANTEROLATERAL LEADS Confirmed by SALVADOR MARKS, LISA ([id number]) on 09/20/2018 11:55:41 AM Referred By: Confirmed By:LISA FRANCO MD
[2018-09-20] MEDS: CYCLOBENZAPRINE HCL 10 MG TABLET (FP) PO PRN ×2 (14:13→22:20)
--- NOTE | 2018-09-20 15:29 | PN ---
[facility] CIWA - CIWA Score Nausea/Vomitin-No Nausea/No Vomiting Muscle Tremors: 5 Anxiety: 4-Mod. Anxious/Guarded Agitation: 3 Paroxysmal Sweats: 3 Orientation: 0-Oriented Tacttile Disturbances: 3-Moderate Itch/Numb/Burn Auditory Disturbances: 0-None Visual Disturbances: 0-None Headache: 0-None Present CIWA-Ar Total Score: 18 BHS Progress Note (SOAP) Subjective: Sweating, Tremors, Body Aches, Anxious. Objective: PATIENT A & O X 3, OBSERVED AMBULATING ON UNIT. NO ACUTE DISTRESS. 09/20/18 15:27 Vital Signs Temperature 98.1 F 09/20/18 13:29 Pulse Rate 85 09/20/18 13:29 Respiratory Rate 18 09/20/18 13:29 Blood Pressure 128/88 09/20/18 13:29 O2 Sat by Pulse Oximetry (%) Laboratory Tests 09/20/18 09/20/18 09/20/18 00:05 07:00 07:00 WBC 5.9 RBC 4.27 Hgb 13.4 Hct 40.1 MCV 93.9 MCH 31.3 MCHC 33.3 RDW 13.2 D Plt Count 222 D MPV 7.7 D Sodium 139 Potassium 3.9 Chloride 100 Carbon Dioxide 31 Anion Gap 8 BUN 16 Creatinine 0.7 Creat Clearance w eGFR > 60 Random Glucose 90 Calcium 8.9 Total Bilirubin 0.3 AST 15 ALT 19 Alkaline Phosphatase 79 Total Protein 6.8 Albumin 4.0 Urine Color Straw Urine Appearance Clear Urine pH 6.0 Ur Specific [place] 1.005 L Urine Protein Negative Urine Glucose (UA) Negative Urine Ketones Negative Urine Blood Negative Urine Nitrite Negative Urine Bilirubin Negative Urine Urobilinogen Negative Ur Leukocyte Esterase Trace Urine WBC (Auto) None Urine RBC (Auto) None Urine Bacteria Rare RPR Titer 09/20/18 07:00 WBC RBC Hgb Hct MCV MCH MCHC RDW Plt Count MPV Sodium Potassium Chloride Carbon Dioxide Anion Gap BUN Creatinine Creat Clearance w eGFR Random Glucose Calcium Total Bilirubin AST ALT Alkaline Phosphatase Total Protein Albumin Urine Color Urine Appearance Urine pH Ur Specific [place] Urine Protein Urine Glucose (UA) Urine Ketones Urine Blood Urine Nitrite Urine Bilirubin Urine Urobilinogen Ur Leukocyte Esterase Urine WBC (Auto) Urine RBC (Auto) Urine Bacteria RPR Titer Nonreactive LABS NOTED. Assessment: 09/20/18 15:28 WITHDRAWAL SYMPTOMS. Plan: CONTINUE DETOX. INCREASE DAILY PO FLUID INTAKE. PRN FLEXERIL FOR BODY ACHES / MUSCLE SPASMS.
--- NOTE | 2018-09-20 17:43 | PN ---
BHS Progress Note Note: Pt noted to have high BP now. 162/107- normal earlier Vital Signs - 24 hr 09/19/18 09/20/18 09/20/18 23:20 00:30 07:14 Temperature 99.0 F 98.1 F Pulse Rate 103 H 76 Respiratory 16 18 18 Rate Blood Pressure 141/70 134/68 09/20/18 09/20/18 10:12 13:29 Temperature 98.1 F 98.1 F Pulse Rate 95 H 85 Respiratory 18 18 Rate Blood Pressure 143/86 128/88 pt agitated also b/c he thinks he did not get WEllbutrin- but according to nurse pt did recieve it. Will give one dose Clonidine to calm him down and decrease BP.
[2018-09-20] MEDS ORDERED: cloNIDine HCL 0.1 MG TABLET PO ONE (17:44)
[2018-09-20] MEDS: THIAMINE HCL 100 MG TABLET (FP) PO SCH (22:20)
[2018-09-20] MEDS: AMITRIPTYLINE HCL 100 MG TABLET PO SCH (22:20)
[2018-09-20] MEDS: MIRTAZAPINE 15 MG TABLET (FP) PO SCH (22:20)
[2018-09-20] MEDS: traZODone HCL 50 MG TABLET (FP) PO SCH (22:20)
[2018-09-21] MEDS ORDERED: METHADONE HCL 40 MG DISPERSABLE TABLET ONE (05:47)
[2018-09-21] MEDS ORDERED: METHADONE HCL 10 MG TABLET ONE (05:48)
[2018-09-21] MEDS: METHADONE 200 MG, METHADONE 10 MG PO SCH (05:49)
[2018-09-21] MEDS: chlordiazePOXIDE HCL 25 MG CAPSULE PO SCH ×2 (05:49→10:12)
[2018-09-21] MEDS: PRENATAL VITAMINS W/ FOLIC ACID TABLET (FP) PO SCH (10:12)
[2018-09-21] MEDS: PHENYTOIN NA EXTENDED 100 MG CAPSULE (FP) PO SCH ×2 (10:12→22:43)
[2018-09-21] MEDS: PANTOPRAZOLE 40 MG TABLET (FP) PO SCH (10:12)
[2018-09-21] MEDS: CYCLOBENZAPRINE HCL 10 MG TABLET (FP) PO PRN ×3 (10:15→22:42)
[2018-09-21] MEDS: LORazepam 1 MG TABLET PO PRN (12:29)
--- NOTE | 2018-09-21 16:22 | PN ---
[facility] CIWA - CIWA Score Nausea/Vomitin-Mild Nausea/No Vomiting Muscle Tremors: 2 Anxiety: 5 Agitation: 3 Paroxysmal Sweats: 1-Minimal Palms Moist Orientation: 0-Oriented Tacttile Disturbances: 0-None Auditory Disturbances: 0-None Visual Disturbances: 0-None Headache: 0-None Present CIWA-Ar Total Score: 12 BHS Progress Note (SOAP) Subjective: pt states he feels like he is also in benzo withdrawal- states that he prefers ativan- works better for him. Says has h/o seizure disorder and usual dose of dilantin 400mg/day- says it interacts with the methadone and needs the higher dosing. Also pt states he takes clonidine for BP control. O: Vital Signs - 24 hr 09/20/18 09/20/18 09/20/18 17:58 17:59 22:10 Temperature 98.1 F 98.1 F Pulse Rate 107 H 113 H 95 H Respiratory 18 18 16 Rate Blood Pressure 162/107 H 158/108 H 131/92 09/21/18 09/21/18 09/21/18 00:30 08:52 09:34 Temperature 97 F L 98.1 F Pulse Rate 65 95 H Respiratory 18 18 16 Rate Blood Pressure 115/78 126/92 09/21/18 09/21/18 09/21/18 13:52 15:30 16:09 Temperature 98.2 F 97.9 F Pulse Rate 104 H 110 H 89 Respiratory 16 16 Rate Blood Pressure 156/110 H 122/79 128/75 Laboratory Tests 09/20/18 09/20/18 09/20/18 00:05 07:00 07:00 WBC 5.9 RBC 4.27 Hgb 13.4 Hct 40.1 MCV 93.9 MCH 31.3 MCHC 33.3 RDW 13.2 D Plt Count 222 D MPV 7.7 D Sodium 139 Potassium 3.9 Chloride 100 Carbon Dioxide 31 Anion Gap 8 BUN 16 Creatinine 0.7 Creat Clearance w eGFR > 60 Random Glucose 90 Calcium 8.9 Total Bilirubin 0.3 AST 15 ALT 19 Alkaline Phosphatase 79 Total Protein 6.8 Albumin 4.0 Urine Color Straw Urine Appearance Clear Urine pH 6.0 Ur Specific [place] 1.005 L Urine Protein Negative Urine Glucose (UA) Negative Urine Ketones Negative Urine Blood Negative Urine Nitrite Negative Urine Bilirubin Negative Urine Urobilinogen Negative Ur Leukocyte Esterase Trace Urine WBC (Auto) None Urine RBC (Auto) None Urine Bacteria Rare RPR Titer 09/20/18 07:00 WBC RBC Hgb Hct MCV MCH MCHC RDW Plt Count MPV Sodium Potassium Chloride Carbon Dioxide Anion Gap BUN Creatinine Creat Clearance w eGFR Random Glucose Calcium Total Bilirubin AST ALT Alkaline Phosphatase Total Protein Albumin Urine Color Urine Appearance Urine pH Ur Specific [place] Urine Protein Urine Glucose (UA) Urine Ketones Urine Blood Urine Nitrite Urine Bilirubin Urine Urobilinogen Ur Leukocyte Esterase Urine WBC (Auto) Urine RBC (Auto) Urine Bacteria RPR Titer Nonreactive ass/plan: Alcohol/benzo withdrawal: will continue taper with Ativan protocol (protocol developed by Dr. Post), will increase dose of dilantin and clonidine prn
[2018-09-21] MEDS: LORazepam 1 MG TABLET PO SCH ×2 (18:16→22:42)
[2018-09-21] MEDS: traZODone HCL 50 MG TABLET (FP) PO SCH (22:41)
[2018-09-21] MEDS: cloNIDine HCL 0.1 MG TABLET PO PRN (22:42)
[2018-09-21] MEDS: MIRTAZAPINE 15 MG TABLET (FP) PO SCH (22:42)
[2018-09-21] MEDS: THIAMINE HCL 100 MG TABLET (FP) PO SCH (22:43)
[2018-09-21] MEDS: AMITRIPTYLINE HCL 100 MG TABLET PO SCH (22:52)
[2018-09-21] MEDS ORDERED: chlordiazePOXIDE 5 MG CAPSULE PO SCH (23:00)
[2018-09-22] MEDS: LORazepam 1 MG TABLET PO SCH ×4 (05:48→22:12)
[2018-09-22] MEDS ORDERED: METHADONE HCL 40 MG DISPERSABLE TABLET ONE (05:50)
[2018-09-22] MEDS: METHADONE 200 MG, METHADONE 10 MG PO SCH (05:51)
[2018-09-22] MEDS ORDERED: METHADONE HCL 10 MG TABLET ONE (05:51)
[2018-09-22] MEDS: PHENYTOIN NA EXTENDED 100 MG CAPSULE (FP) PO SCH ×2 (10:42→22:13)
[2018-09-22] MEDS: PANTOPRAZOLE 40 MG TABLET (FP) PO SCH (10:42)
[2018-09-22] MEDS: PRENATAL VITAMINS W/ FOLIC ACID TABLET (FP) PO SCH (10:43)
[2018-09-22] MEDS: CYCLOBENZAPRINE HCL 10 MG TABLET (FP) PO PRN ×2 (10:49→17:56)
--- NOTE | 2018-09-22 10:51 | PN ---
BHS Progress Note (SOAP) Subjective: Severe anxiety, tremors, back pain, restlessness and tearfulness Objective: 09/22/18 10:47 Vital Signs 09/22/18 09/22/18 09/22/18 03:30 06:00 09:23 Temperature 97.3 F L 98.1 F Pulse Rate 81 94 H Respiratory 16 18 18 Rate Blood Pressure 131/82 138/95 Laboratory Last Values WBC 5.9 K/mm3 (4.0-10.0) 09/20/18 07:00 RBC 4.27 M/mm3 (4.00-5.60) 09/20/18 07:00 Hgb 13.4 GM/dL (11.7-16.9) 09/20/18 07:00 Hct 40.1 % (35.4-49) 09/20/18 07:00 MCV 93.9 fl (80-96) 09/20/18 07:00 MCH 31.3 pg (25.7-33.7) 09/20/18 07:00 MCHC 33.3 g/dl (32.0-35.9) 09/20/18 07:00 RDW 13.2 % (11.9-15.9) D 09/20/18 07:00 Plt Count 222 K/MM3 (134-434) D 09/20/18 07:00 MPV 7.7 fl (7.5-11.1) D 09/20/18 07:00 Sodium 139 mmol/L (136-145) 09/20/18 07:00 Potassium 3.9 mmol/L (3.5-5.1) 09/20/18 07:00 Chloride 100 mmol/L (98-107) 09/20/18 07:00 Carbon Dioxide 31 mmol/L (21-32) 09/20/18 07:00 Anion Gap 8 MMOL/L (8-16) 09/20/18 07:00 BUN 16 mg/dL (7-18) 09/20/18 07:00 Creatinine 0.7 mg/dL (0.55-1.3) 09/20/18 07:00 Creat Clearance w eGFR > 60 (>60) 09/20/18 07:00 Random Glucose 90 mg/dL (74-106) 09/20/18 07:00 Calcium 8.9 mg/dL (8.5-10.1) 09/20/18 07:00 Total Bilirubin 0.3 mg/dL (0.2-1) 09/20/18 07:00 AST 15 U/L (15-37) 09/20/18 07:00 ALT 19 U/L (13-61) 09/20/18 07:00 Alkaline Phosphatase 79 U/L (45-117) 09/20/18 07:00 Total Protein 6.8 g/dl (6.4-8.2) 09/20/18 07:00 Albumin 4.0 g/dl (3.4-5.0) 09/20/18 07:00 Urine Color Straw 09/20/18 00:05 Urine Appearance Clear 09/20/18 00:05 Urine pH 6.0 (5.0-8.0) 09/20/18 00:05 Ur Specific [place] 1.005 (1.010-1.035) L 09/20/18 00:05 Urine Protein Negative (NEGATIVE) 09/20/18 00:05 Urine Glucose (UA) Negative (NEGATIVE) 09/20/18 00:05 Urine Ketones Negative (NEGATIVE) 09/20/18 00:05 Urine Blood Negative (NEGATIVE) 09/20/18 00:05 Urine Nitrite Negative (NEGATIVE) 09/20/18 00:05 Urine Bilirubin Negative (<2.0 mg/dL) 09/20/18 00:05 Urine Urobilinogen Negative mg/dL (0.2-1.0) 09/20/18 00:05 Ur Leukocyte Esterase Trace (NEGATIVE) 09/20/18 00:05 Urine WBC (Auto) None /hpf (3-5) 09/20/18 00:05 Urine RBC (Auto) None /hpf (0-3) 09/20/18 00:05 Urine Bacteria Rare /hpf (NONE SEEN) 09/20/18 00:05 RPR Titer Nonreactive (NONREACTIVE) 09/20/18 07:00 Labs noted Patient alert with no apparent distress but very tearful due to possible discharge to community tomorrow, 09/23, prefers a day longer in detox to enable him enter rehab on Monday. Assessment: 09/22/18 10:48 Withdrawal sx Plan: Continue detox Discussed with counsellor for possible in house detox, to be determined on d/c day based on bed availability Emotional support given
[2018-09-22] MEDS: cloNIDine HCL 0.1 MG TABLET PO PRN (13:42)
[2018-09-22] MEDS: LORazepam 1 MG TABLET PO PRN ×2 (13:53→20:31)
[2018-09-22] MEDS: THIAMINE HCL 100 MG TABLET (FP) PO SCH (22:12)
[2018-09-22] MEDS: MIRTAZAPINE 15 MG TABLET (FP) PO SCH (22:12)
[2018-09-22] MEDS: traZODone HCL 50 MG TABLET (FP) PO SCH (22:13)
[2018-09-22] MEDS: AMITRIPTYLINE HCL 100 MG TABLET PO SCH (22:13)
[2018-09-22] MEDS ORDERED: chlordiazePOXIDE HCL 10 MG CAPSULE PO SCH (23:00)
[2018-09-23] MEDS ORDERED: METHADONE HCL 40 MG DISPERSABLE TABLET ONE (04:59)
[2018-09-23] MEDS ORDERED: METHADONE HCL 10 MG TABLET ONE (04:59)
[2018-09-23] MEDS: METHADONE 200 MG, METHADONE 10 MG PO SCH (05:34)
[2018-09-23] MEDS: LORazepam 1 MG TABLET PO SCH (05:34)
[2018-09-23] MEDS: cloNIDine HCL 0.1 MG TABLET PO PRN ×2 (05:35→14:55)
--- NOTE | 2018-09-23 08:43 | DS ---
[facility] Detox Discharge Summary Admission Date: 09/19/18 Discharge Date: 09/23/18 - History Present History: Alcohol Dependence Additional Comments: 28 years old male admitted on 09/19/18 for alcohol withdrawal sx completed detox regimen tolerated well denies alcohol withdrawal sx alert oriented x 3 no acute distress aftercare [facility] - Physical Exam Results Vital Signs: Vital Signs Temperature 97.5 F L 09/23/18 06:00 Pulse Rate 94 H 09/23/18 06:10 Respiratory Rate 20 09/23/18 06:10 Blood Pressure 139/98 09/23/18 06:10 O2 Sat by Pulse Oximetry (%) Pertinent Admission Physical Exam Findings: alcohol withdrawal sx Vital Signs Temperature 96.3 F L 09/23/18 10:11 Pulse Rate 109 H 09/23/18 10:11 Respiratory Rate 18 09/23/18 10:11 Blood Pressure 134/92 09/23/18 10:11 O2 Sat by Pulse Oximetry (%) Laboratory Last Values WBC 5.9 K/mm3 (4.0-10.0) 09/20/18 07:00 RBC 4.27 M/mm3 (4.00-5.60) 09/20/18 07:00 Hgb 13.4 GM/dL (11.7-16.9) 09/20/18 07:00 Hct 40.1 % (35.4-49) 09/20/18 07:00 MCV 93.9 fl (80-96) 09/20/18 07:00 MCH 31.3 pg (25.7-33.7) 09/20/18 07:00 MCHC 33.3 g/dl (32.0-35.9) 09/20/18 07:00 RDW 13.2 % (11.9-15.9) D 09/20/18 07:00 Plt Count 222 K/MM3 (134-434) D 09/20/18 07:00 MPV 7.7 fl (7.5-11.1) D 09/20/18 07:00 Sodium 139 mmol/L (136-145) 09/20/18 07:00 Potassium 3.9 mmol/L (3.5-5.1) 09/20/18 07:00 Chloride 100 mmol/L (98-107) 09/20/18 07:00 Carbon Dioxide 31 mmol/L (21-32) 09/20/18 07:00 Anion Gap 8 MMOL/L (8-16) 09/20/18 07:00 BUN 16 mg/dL (7-18) 09/20/18 07:00 Creatinine 0.7 mg/dL (0.55-1.3) 09/20/18 07:00 Creat Clearance w eGFR > 60 (>60) 09/20/18 07:00 Random Glucose 90 mg/dL (74-106) 09/20/18 07:00 Calcium 8.9 mg/dL (8.5-10.1) 09/20/18 07:00 Total Bilirubin 0.3 mg/dL (0.2-1) 09/20/18 07:00 AST 15 U/L (15-37) 09/20/18 07:00 ALT 19 U/L (13-61) 09/20/18 07:00 Alkaline Phosphatase 79 U/L (45-117) 09/20/18 07:00 Total Protein 6.8 g/dl (6.4-8.2) 09/20/18 07:00 Albumin 4.0 g/dl (3.4-5.0) 09/20/18 07:00 Urine Color Straw 09/20/18 00:05 Urine Appearance Clear 09/20/18 00:05 Urine pH 6.0 (5.0-8.0) 09/20/18 00:05 Ur Specific [place] 1.005 (1.010-1.035) L 09/20/18 00:05 Urine Protein Negative (NEGATIVE) 09/20/18 00:05 Urine Glucose (UA) Negative (NEGATIVE) 09/20/18 00:05 Urine Ketones Negative (NEGATIVE) 09/20/18 00:05 Urine Blood Negative (NEGATIVE) 09/20/18 00:05 Urine Nitrite Negative (NEGATIVE) 09/20/18 00:05 Urine Bilirubin Negative (<2.0 mg/dL) 09/20/18 00:05 Urine Urobilinogen Negative mg/dL (0.2-1.0) 09/20/18 00:05 Ur Leukocyte Esterase Trace (NEGATIVE) 09/20/18 00:05 Urine WBC (Auto) None /hpf (3-5) 09/20/18 00:05 Urine RBC (Auto) None /hpf (0-3) 09/20/18 00:05 Urine Bacteria Rare /hpf (NONE SEEN) 09/20/18 00:05 RPR Titer Nonreactive (NONREACTIVE) 09/20/18 07:00 lab noted - Treatment Hospital Course: Detox Protocol Followed, Detoxed Safely, Responded well, Discharged Condition Good, Rehab Referral Accepted Patient has Accepted a Rehab Referral to: [facility] - Medication Discharge Medications: Ambulatory Orders Phenytoin Na Extended [Dilantin -] 100 mg PO BID 05/23/18 Quetiapine Fumarate [Seroquel -] 200 mg PO HS 05/23/18 Amitriptyline HCl [Elavil -] 50 mg PO BID #60 tablet 06/12/18 Mirtazapine [Remeron -] 15 mg PO HS #30 tablet 06/12/18 traZODone HCL [Desyrel -] 100 mg PO HS #30 tablet 06/12/18 Methadone [Dolophine -] 200 mg PO DAILY 09/19/18 Amitriptyline HCl [Elavil -] 100 mg PO HS #30 tablet 09/20/18 Bupropion HCl [Wellbutrin Xl -] 150 mg PO DAILY@1200 #30 tab.sr.24h 09/20/18 Bupropion HCl [Wellbutrin Xl -] 300 mg PO DAILY #30 tab.sr.24h 09/20/18 Mirtazapine [Remeron -] 30 mg PO HS #30 tablet 09/20/18 traZODone HCL [Desyrel -] 150 mg PO HS #30 tablet 09/20/18 Phenytoin Na Extended [Dilantin -] 100 mg PO BID #60 capsule 09/23/18 cloNIDine HCL [Catapres -] 0.1 mg PO DAILY #15 tablet 09/23/18 - Diagnosis (1) Alcohol dependence with uncomplicated withdrawal Current Visit: Yes Status: Acute (2) GERD (gastroesophageal reflux disease) Current Visit: Yes Status: Chronic Qualifiers: Esophagitis presence: without esophagitis Qualified Code(s): K21.9 - Gastro -esophageal reflux disease without esophagitis (3) Methadone maintenance therapy patient Current Visit: Yes Status: Chronic (4) Nicotine dependence Current Visit: Yes Status: Acute Qualifiers: Nicotine product type: cigarettes Substance use status: in withdrawal Qualified Code(s): F17.213 - Nicotine dependence, cigarettes, with withdrawal (5) Substance-induced sleep disorder Current Visit: Yes Status: Suspected (6) Weight loss Current Visit: Yes Status: Acute (7) Hepatitis C Current Visit: Yes Status: Chronic Qualifiers: Viral hepatitis chronicity: unspecified Hepatic coma status: without hepatic coma Qualified Code(s): B19.20 - Unspecified viral hepatitis C without hepatic coma - AMA Did Patient Leave Against Medical Advice: No
[2018-09-23] MEDS: PRENATAL VITAMINS W/ FOLIC ACID TABLET (FP) PO SCH (10:31)
[2018-09-23] MEDS: PANTOPRAZOLE 40 MG TABLET (FP) PO SCH (10:32)
[2018-09-23] MEDS: PHENYTOIN NA EXTENDED 100 MG CAPSULE (FP) PO SCH (10:32)
[2018-09-23] MEDS: CYCLOBENZAPRINE HCL 10 MG TABLET (FP) PO PRN (10:35)
[2018-09-23 14:16] VITALS: BP 129/82; TEMP 99
[2018-09-23] MEDS ORDERED: hydrOXYzine PAMOATE 25 MG CAPSULE (FP) PO ONE (14:53)
[2018-09-23 19:20] VITALS: PULSE 95
== END 2018-09-23 19:00 | disposition other institution (70) | DRG 773 ==
LOC: YASAS 13:48 → Y6N 17:20
PROC: HZ2ZZZZ Detoxification Services for Substance Abuse Treatment (ICD-10-PCS; principal; 2018-09-19)
DX: F10.230 Alcohol dependence with withdrawal, uncomplicated (principal); F13.20 Sedative, hypnotic or anxiolytic dependence, uncomplicated; F11.20 Opioid dependence, uncomplicated; F17.213 Nicotine dependence, cigarettes, with withdrawal; F19.24 Other psychoactive substance dependence with psychoactive substance-induced mood disorder; F19.282 Other psychoactive substance dependence with psychoactive substance-induced sleep disorder; B18.2 Chronic viral hepatitis C; K21.9 Gastro-esophageal reflux disease without esophagitis; E86.0 Dehydration; M54.9 Dorsalgia, unspecified; R63.4 Abnormal weight loss; Z68.24 Body mass index [BMI] 24.0-24.9, adult; Z86.69 Personal history of other diseases of the nervous system and sense organs
CPT/HCPCS: 36415; 80053; 81003; 81015; 85027; 86593; 93005; 93010; J0735

== ENCOUNTER 2018-09-23 19:24 | Inpatient (IN) | payer OTHER ==
[2018-09-23] MEDS ORDERED: MENTHOL/PHENOL 1 EACH UD MM PRN (20:27)
[2018-09-23] MEDS ORDERED: MAGNESIUM CITRATE 300 ML BOTTLE PO PRN (20:27)
[2018-09-23] MEDS ORDERED: LOPERAMIDE HCL 2 MG CAPSULE PO PRN (20:27)
[2018-09-23] MEDS ORDERED: ACETAMINOPHEN 325 MG TABLET (FP) PO PRN (20:27)
[2018-09-23] MEDS ORDERED: guaiFENesin/D-METHORPHAN HB 10 ML UNIT-DOSE CUPS PO PRN (20:27)
[2018-09-23] MEDS ORDERED: P-EPHED 60MG/TRIPROLIDI 2.5MG TABLET PO PRN (20:27)
[2018-09-23] MEDS ORDERED: MAG HYDROX/AL HYDROX/SIMETH 30 ML UNIT-DOSE CUP PO PRN (20:27)
[2018-09-23] MEDS ORDERED: MAGNESIUM HYDROX 2400MG/30ML ORAL SUSPENSION 30 ML CUP PO PRN (20:27)
[2018-09-23] MEDS ORDERED: MELATONIN 5 MG TABLETS PO PRN (22:00)
[2018-09-23] MEDS: PHENYTOIN NA EXTENDED 100 MG CAPSULE (FP) PO SCH (22:35)
[2018-09-23] MEDS: traZODone HCL 100 MG TABLET (FP) PO SCH (22:35)
[2018-09-23] MEDS: AMITRIPTYLINE HCL 25 MG TABLET (FP) PO SCH (22:36)
[2018-09-23] MEDS: MIRTAZAPINE 15 MG TABLET (FP) PO SCH (22:36)
[2018-09-23] MEDS: THIAMINE HCL 100 MG TABLET (FP) PO SCH (22:37)
[2018-09-23] MEDS: IBUPROFEN 400 MG TABLET (FP) PO PRN (23:22)
[2018-09-24] MEDS ORDERED: METHADONE HCL 10 MG TABLET PO SCH (07:45)
[2018-09-24] MEDS ORDERED: METHADONE HCL 10 MG TABLET ONE (09:23)
[2018-09-24] MEDS ORDERED: METHADONE HCL 40 MG DISPERSABLE TABLET ONE (09:23)
[2018-09-24] MEDS: METHADONE 200 MG, METHADONE 10 MG PO SCH (09:24)
[2018-09-24] MEDS: PHENYTOIN NA EXTENDED 100 MG CAPSULE (FP) PO SCH ×2 (09:25→21:13)
[2018-09-24] MEDS: IBUPROFEN 400 MG TABLET (FP) PO PRN ×2 (09:25→19:05)
[2018-09-24] MEDS: PRENATAL VITAMINS W/ FOLIC ACID TABLET (FP) PO SCH (09:25)
[2018-09-24] MEDS: hydrOXYzine PAMOATE 25 MG CAPSULE (FP) PO PRN (17:38)
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
[2018-09-24] MEDS: AMITRIPTYLINE HCL 25 MG TABLET (FP) PO SCH (21:13)
[2018-09-24] MEDS: MIRTAZAPINE 15 MG TABLET (FP) PO SCH (21:13)
[2018-09-24] MEDS: traZODone HCL 100 MG TABLET (FP) PO SCH (21:13)
[2018-09-24] MEDS: THIAMINE HCL 100 MG TABLET (FP) PO SCH (21:17)
[2018-09-24] MEDS ORDERED: AMITRIPTYLINE HCL 25 MG TABLET (FP) PO SCH (22:00)
[2018-09-24] MEDS ORDERED: AMITRIPTYLINE HCL 50 MG TABLET PO SCH (22:00)
[2018-09-25] MEDS ORDERED: METHADONE HCL 10 MG TABLET ONE (03:54)
[2018-09-25] MEDS ORDERED: METHADONE HCL 40 MG DISPERSABLE TABLET ONE (03:55)
[2018-09-25] MEDS: METHADONE 200 MG, METHADONE 10 MG PO SCH (06:12)
--- NOTE | 2018-09-25 12:01 | PN ---
[facility] Progress Note Note: Pt is a 28 y/o male admitted to rehab from detox(09/19/18 to 09/23/18). Pt has been very anxious and restless about his medication regimen and wants it reviewed and given as he has been taking them. Pt brought in his blister packs of his psych and medical condition medications and this functional tester typewriters spoke with the [facility] pharmacist on duty who reports last pickup of Dilantin 100 mg po tid was in August and patient was also at [facility], [facility]. Spoke with the medical provider, Nina Amador NP at [facility] and increased pt to 200 mg po tid due to seizure episode and noncompliance of pt in taking his seizure medicine/ refusal for treatment at the ER. Pt was discharged from [facility] on 09/19/18. Reported last seizure episode outside treatment facility about a week before discharge from [facility] while on an escort outing and was taken to the ER and pt signed out AMA refused treatment at the ER. Here, Pt is currently on Dilantin 200 mg po bid from Detox. PT States he has been on dilantin for over 7 years and was given to him for seizure due to withdrawal sx as well as that he has absent seizures. Pt states he had a pcp in [place], [place] but has not seen the pcp for many years. Meanwhile, dilantin level was 2.5 on 09/24/18-below therapeutic levels. A repeat has been ordered today and result pending. Vital Signs 09/25/18 06:45 Temperature 98.0 F Pulse Rate 86 Respiratory 18 Rate Blood Pressure 146/92 plan:Increase to Dilantin 200 mg po tid monitor Dilantin levels as needed 3:57 p.m entry Laboratory Last Values Phenytoin 3.7 ug/ml (10.0-20.0) L 09/25/18 10:40 plan:dilantin 200 mg po tid monitor dilantin level.
[2018-09-25] MEDS: PRENATAL VITAMINS W/ FOLIC ACID TABLET (FP) PO SCH (12:34)
[2018-09-25] MEDS: hydrOXYzine PAMOATE 25 MG CAPSULE (FP) PO PRN ×2 (12:34→21:21)
[2018-09-25] MEDS: PHENYTOIN NA EXTENDED 100 MG CAPSULE (FP) PO SCH ×2 (12:34→21:46)
[2018-09-25] MEDS: PATIENT'S OWN MEDICATION (NON-FORMULARY) (Cetirizine Hcl [Cetirizine Hcl] 10 MG) PO SCH (14:12)
[2018-09-25] MEDS ORDERED: PHENYTOIN NA EXTENDED 100 MG CAPSULE (FP) PO ONE (14:15)
--- NOTE | 2018-09-25 19:56 | PN ---
[facility] Progress Note Note: Psychiatry Attending's note (follow-up) : Medical re-consult is noted. Data reviewed. Medical FORM MAKER Candice's note : read and appreciated. Seizure disorder is confirmed. Non-adherence to anticonvulsant : documented. Noted report of recent ictal activity at [facility] [place] during treatment with buproprion. Patient REFUSES to accept the fact that wellbutrin lowers the seizure threshold. Causing seizures. Patient insists on getting back on wellbutrin XL 450 mg daily. Continues to pressure MD to re-instate wellbutrin, mirtazapine and amitryptiline. In addition to trazodone. Totally oblivious to psychoeducation + logical reasoning. Maintaining this patient on bupropion places him at great risk of medical complications : episodes of seizures, status epilepticus, falls, physical injuries and traumatic brain injury. Risks are magnified by chronic non-adherence to anticonvulsant medication. Evidenced by sub-therapeutic levels of phenytoin. See below : DPH level = 2.5 (09/24/18) + 3.7 (09/25/18). Normal range : 10-20. Mr Cartagena remains argumentative, histrionic, manipulative. Invested in the quest for personal gratification. Prone to acting out / splitting behaviors. Incessant debates with clinicians and somatic complaints. Firm limits recommended. Caisson Worker will follow.
[2018-09-25] MEDS: IBUPROFEN 400 MG TABLET (FP) PO PRN (20:23)
[2018-09-25] MEDS: THIAMINE HCL 100 MG TABLET (FP) PO SCH (21:19)
[2018-09-25] MEDS: traZODone HCL 100 MG TABLET (FP) PO SCH (21:19)
[2018-09-25] MEDS ORDERED: PHENYTOIN NA EXTENDED 100 MG CAPSULE (FP) PO SCH (22:00)
--- NOTE | 2018-09-25 22:55 | PN ---
[facility] Progress Note Note: Psychiatry Attending's on-call note : Nurse called to report patient as intrusive, argumentative. Requesting additional dose of trazodone + mirtazapine. Spoke to patient via telephone. Mr Cartagena refuses to pass the telephone to the nurse as instructed. Keeps on arguing, ignoring MD's requests to speak to the nurse. Patient is escalating. NO additional medications will be ordered.Psychiatric re-evaluation in AM. Mr Cartagena is made aware that his behavior is disruptive to the milieu. Could justify a change in disposition plan : discharge versus transfer to psychiatric ER.
[2018-09-26] MEDS ORDERED: METHADONE HCL 10 MG TABLET ONE (03:28)
[2018-09-26] MEDS ORDERED: METHADONE HCL 40 MG DISPERSABLE TABLET ONE (03:29)
[2018-09-26] MEDS: PHENYTOIN NA EXTENDED 100 MG CAPSULE (FP) PO SCH ×3 (06:01→21:14)
[2018-09-26] MEDS: METHADONE 200 MG, METHADONE 10 MG PO SCH (06:02)
[2018-09-26] MEDS: PRENATAL VITAMINS W/ FOLIC ACID TABLET (FP) PO SCH (09:57)
[2018-09-26] MEDS: hydrOXYzine PAMOATE 25 MG CAPSULE (FP) PO PRN ×2 (09:59→21:14)
[2018-09-26] MEDS: PATIENT'S OWN MEDICATION (NON-FORMULARY) (Cetirizine Hcl [Cetirizine Hcl] 10 MG) PO SCH (10:00)
--- NOTE | 2018-09-26 11:57 | PN ---
Psychiatric Progress Note Vital Signs: Vital Signs Period Temp Pulse Resp BP Sys/Lieberman Pulse Ox Last 24 Hr 97.8 F 77 16-18 131/88 Date of Session: 09/26/18 Chief Complaint:: Anxiety, irritability, agitation and severe insomnia HPI: As per nursing report patient asking for his preadmission medications;. Trazodone 150mg po qhs. Remeron 30mg po qhs. Wellbutrin XL 300mg poqd. Medications were on hold due to possible seizure complications,. Wellbutrin can cause seizures, but risk of seizures is dose related, the dose should not exceedc 450mg per day, the risk of seizures is also related to patient factors, clinical situations and concomimitant medications that lower the seizure threshhold. Rec: Wellbutrin XL 150mg poqd. Remeron 15mg po qhs. Trazodone 150mg po qhs Current Medications: Active Medications Generic Name Dose Route Start Last Admin Trade Name Freq PRN Reason Stop Dose Admin Acetaminophen 650 mg 09/23/18 20:27 09/24/18 21:13 Tylenol - PO 650 mg Q4H PRN Administration FEVER Al Hydroxide/Mg Hydroxide 30 ml 09/23/18 20:27 Mylanta Oral Suspension - PO Q6H PRN DYSPEPSIA Bupropion HCl 150 mg 09/26/18 12:00 Wellbutrin Xl - PO DAILY GUILLERMO Eucalyptus/Menthol/Phenol/Sorbitol 1 each 09/23/18 20:27 Cepastat Lozenge - MM Q4H PRN SORE THROAT Guaifenesin 10 ml 09/23/18 20:27 Robitussin Dm - PO Q6H PRN COUGH Hydroxyzine Pamoate 25 mg 09/23/18 20:27 09/26/18 09:59 Vistaril - PO 25 mg Q4H PRN Administration ANXIETY Ibuprofen 400 mg 09/23/18 20:27 09/25/18 20:23 Motrin - PO 400 mg Q6H PRN Administration Pain Level 4-6 Loperamide HCl 4 mg 09/23/18 20:27 Imodium - PO Q6H PRN DIARRHEA Magnesium Citrate 300 ml 09/23/18 20:27 Citroma - PO Q48H PRN CONSTIPATION Magnesium Hydroxide 30 ml 09/23/18 20:27 Milk Of Magnesia - PO DAILY PRN CONSTIPATION Methadone HCl 200 mg/ 210 mg 09/24/18 08:15 09/26/18 06:02 Methadone HCl 10 mg PO 10/01/18 08:14 210 mg DAILY@0600 [facility] Administration Mirtazapine 15 mg 09/26/18 22:00 Remeron - PO HS [facility] Non-Formulary Medication 10 mg 09/25/18 13:00 09/26/18 10:00 Cetirizine Hcl [Cetirizine Hcl] PO 10 mg DAILY GUILLERMO Administration Phenytoin Sodium 200 mg 09/25/18 22:00 09/26/18 06:01 Dilantin - PO 200 mg TID GUILLERMO Administration Multivit/Folic Acid/Iron 1 tab 09/24/18 10:00 09/26/18 09:57 Vitamins (Sjr) - PO 1 tab DAILY GUILLERMO Administration Pseudoephedrine/Triprolidine 1 combo 09/23/18 20:27 Actifed - PO TID PRN NASAL CONGESTION Thiamine HCl 100 mg 09/23/18 22:00 09/25/18 21:19 Vitamin B1 - PO 100 mg HS [facility] Administration Trazodone HCl 100 mg 09/23/18 22:30 09/25/18 21:19 Desyrel - PO 100 mg HS GUILLERMO Administration Trazodone HCl 150 mg 09/26/18 22:00 Desyrel - PO HS [facility] Medication(s) Change(s): Wellbutrin XL 150mg poqd. Remeron 15mg po qhs. Trazodone 150mg po qhs Mental Status Exam - Mental Status Exam Alert and Oriented to: Place, Person Cognitive Function: Fair Patient Appearance: Well Groomed Mood: Fearful, Sad, Nervous Affect: Mood Congruent Patient Behavior: Crying, Restless Speech Pattern: Appropriate Voice Loudness: Mildly Soft/Quiet Thought Process: Goal Oriented Thought Disorder: Being Controlled Hallucinations: Denies Suicidal Ideation: Denies Homicidal Ideation: Denies Insight/Judgement: Fair Sleep: Difficulty falling asleep Appetite: Fair Muscle strength/Tone: Normal Gait/Station: Normal Additional Comments: Wellbutrin XL 150mg poqd. Remeron 15mg po qhs. Trazodone 150mg po qhs Psychiatric Treatment Plan - Problem List (1) Alcohol dependence with uncomplicated withdrawal Current Visit: Yes (2) Nicotine dependence Current Visit: Yes Qualifiers: Nicotine product type: cigarettes Substance use status: in withdrawal Qualified Code(s): F17.213 - Nicotine dependence, cigarettes, with withdrawal (3) Opioid dependence on agonist therapy Current Visit: Yes (4) Sedative hypnotic or anxiolytic dependence Current Visit: Yes (5) Substance induced mood disorder Current Visit: Yes (6) Mood disorder Current Visit: Yes (7) Alcohol dependence Current Visit: No (8) Back pain Current Visit: No (9) Callus of foot Current Visit: No (10) Marijuana dependence Current Visit: No (11) Substance-induced sleep disorder Current Visit: No (12) Weight loss Current Visit: No (13) Drug-induced mood disorder Current Visit: No (14) GERD (gastroesophageal reflux disease) Current Visit: No Qualifiers: Esophagitis presence: without esophagitis Qualified Code(s): K21.9 - Gastro -esophageal reflux disease without esophagitis (15) Hepatitis C Current Visit: No Qualifiers: Viral hepatitis chronicity: unspecified Hepatic coma status: without hepatic coma Qualified Code(s): B19.20 - Unspecified viral hepatitis C without hepatic coma (16) Hx of seizure disorder Current Visit: No (17) Methadone maintenance therapy patient Current Visit: No (18) Opioid dependence on agonist therapy Current Visit: No (19) PTSD (post-traumatic stress disorder) Current Visit: No (20) Sedative dependence Current Visit: No (21) Withdrawal seizures Current Visit: No (22) Substance-induced sleep disorder Current Visit: No Initial treatment plan: Wellbutrin XL 150mg poqd. Remeron 15mg po qhs. Trazodone 150mg po qhs
[2018-09-26] MEDS: IBUPROFEN 400 MG TABLET (FP) PO PRN (12:14)
[2018-09-26] MEDS: THIAMINE HCL 100 MG TABLET (FP) PO SCH (21:14)
[2018-09-26] MEDS: traZODone HCL 50 MG TABLET (FP) PO SCH (21:16)
[2018-09-26] MEDS: MIRTAZAPINE 15 MG TABLET (FP) PO SCH (21:16)
[2018-09-27] MEDS ORDERED: METHADONE HCL 10 MG TABLET ONE (04:31)
[2018-09-27] MEDS ORDERED: METHADONE HCL 40 MG DISPERSABLE TABLET ONE (04:31)
[2018-09-27] MEDS: PHENYTOIN NA EXTENDED 100 MG CAPSULE (FP) PO SCH ×3 (06:07→21:15)
[2018-09-27] MEDS: METHADONE 200 MG, METHADONE 10 MG PO SCH (06:07)
[2018-09-27] MEDS: PRENATAL VITAMINS W/ FOLIC ACID TABLET (FP) PO SCH (09:49)
[2018-09-27] MEDS: PATIENT'S OWN MEDICATION (NON-FORMULARY) (Cetirizine Hcl [Cetirizine Hcl] 10 MG) PO SCH (09:49)
[2018-09-27] MEDS: traZODone HCL 50 MG TABLET (FP) PO SCH (21:15)
[2018-09-27] MEDS: THIAMINE HCL 100 MG TABLET (FP) PO SCH (21:16)
[2018-09-27] MEDS: MIRTAZAPINE 15 MG TABLET (FP) PO SCH (21:16)
[2018-09-28] MEDS ORDERED: METHADONE HCL 10 MG TABLET ONE (04:47)
[2018-09-28] MEDS ORDERED: METHADONE HCL 40 MG DISPERSABLE TABLET ONE (04:48)
[2018-09-28] MEDS: PHENYTOIN NA EXTENDED 100 MG CAPSULE (FP) PO SCH ×3 (05:59→21:22)
[2018-09-28] MEDS: METHADONE 200 MG, METHADONE 10 MG PO SCH (06:00)
[2018-09-28] MEDS: PRENATAL VITAMINS W/ FOLIC ACID TABLET (FP) PO SCH (09:46)
[2018-09-28] MEDS: PATIENT'S OWN MEDICATION (NON-FORMULARY) (Cetirizine Hcl [Cetirizine Hcl] 10 MG) PO SCH (09:48)
[2018-09-28] MEDS: MIRTAZAPINE 15 MG TABLET (FP) PO SCH (21:21)
[2018-09-28] MEDS: THIAMINE HCL 100 MG TABLET (FP) PO SCH (21:21)
[2018-09-28] MEDS: traZODone HCL 50 MG TABLET (FP) PO SCH (21:21)
[2018-09-28] MEDS: hydrOXYzine PAMOATE 25 MG CAPSULE (FP) PO PRN (21:22)
[2018-09-29] MEDS ORDERED: METHADONE HCL 10 MG TABLET ONE (05:56)
[2018-09-29] MEDS: PHENYTOIN NA EXTENDED 100 MG CAPSULE (FP) PO SCH ×3 (05:57→21:16)
[2018-09-29] MEDS ORDERED: METHADONE HCL 40 MG DISPERSABLE TABLET ONE (05:57)
[2018-09-29] MEDS: METHADONE 200 MG, METHADONE 10 MG PO SCH (05:57)
[2018-09-29] MEDS: PRENATAL VITAMINS W/ FOLIC ACID TABLET (FP) PO SCH (09:40)
[2018-09-29] MEDS: PATIENT'S OWN MEDICATION (NON-FORMULARY) (Cetirizine Hcl [Cetirizine Hcl] 10 MG) PO SCH (09:41)
[2018-09-29] MEDS: THIAMINE HCL 100 MG TABLET (FP) PO SCH (21:15)
[2018-09-29] MEDS: traZODone HCL 50 MG TABLET (FP) PO SCH (21:15)
[2018-09-29] MEDS: MIRTAZAPINE 15 MG TABLET (FP) PO SCH (21:16)
[2018-09-29] MEDS: hydrOXYzine PAMOATE 25 MG CAPSULE (FP) PO PRN (21:16)
[2018-09-30] MEDS ORDERED: METHADONE HCL 40 MG DISPERSABLE TABLET ONE (03:06)
[2018-09-30] MEDS ORDERED: METHADONE HCL 10 MG TABLET ONE (03:06)
[2018-09-30] MEDS: METHADONE 200 MG, METHADONE 10 MG PO SCH (06:07)
[2018-09-30] MEDS: PHENYTOIN NA EXTENDED 100 MG CAPSULE (FP) PO SCH ×3 (06:07→21:10)
[2018-09-30] MEDS: PRENATAL VITAMINS W/ FOLIC ACID TABLET (FP) PO SCH (09:39)
[2018-09-30] MEDS: PATIENT'S OWN MEDICATION (NON-FORMULARY) (Cetirizine Hcl [Cetirizine Hcl] 10 MG) PO SCH (09:40)
[2018-09-30] MEDS: MIRTAZAPINE 15 MG TABLET (FP) PO SCH (21:10)
[2018-09-30] MEDS: THIAMINE HCL 100 MG TABLET (FP) PO SCH (21:10)
[2018-09-30] MEDS: traZODone HCL 50 MG TABLET (FP) PO SCH (21:10)
[2018-09-30] MEDS: hydrOXYzine PAMOATE 25 MG CAPSULE (FP) PO PRN (21:12)
[2018-10-01] MEDS ORDERED: METHADONE HCL 40 MG DISPERSABLE TABLET ONE (05:15)
[2018-10-01] MEDS ORDERED: METHADONE HCL 10 MG TABLET ONE (05:15)
[2018-10-01] MEDS ORDERED: METHADONE HCL 10 MG TABLET PO SCH (06:00)
[2018-10-01] MEDS: PHENYTOIN NA EXTENDED 100 MG CAPSULE (FP) PO SCH ×3 (06:01→21:17)
[2018-10-01] MEDS: METHADONE 200 MG, METHADONE 10 MG PO SCH (06:02)
--- NOTE | 2018-10-01 10:05 | PN ---
S Progress Note (SOAP) Subjective: PT C/O ABRASION ON LEFT SIDE OF MU-ISM X 1 MONTH OR MORE. ALSO C/O ITCHY FOOT RASH. PT C/O LOWER BACK PAIN SHOOTING DOWN HIS LEGS. REPORTS HE IS ON FLEXERIL. Objective: 10/01/18 10:01 Vital Signs 10/01/18 10/01/18 03:30 06:46 Temperature 98.6 F Pulse Rate 89 Respiratory 18 18 Rate Blood Pressure 147/58 L Laboratory Tests 09/25/18 10:40 Phenytoin 3.7 L Assessment: 10/01/18 10:01 LOWER BACK PAIN/HX SCIATICA Plan: LIDOCAINE PATCH DIRECTED FLEXERIL 10 MF PO Q8H BACITRACIN OINTMENT APPLY DIRECTED TINACTIN CREAM APPLY TO FEET DIRECTED.
[2018-10-01] MEDS: LIDOCAINE 5% TOPICAL PATCH TP SCH (10:15)
[2018-10-01] MEDS: TOLNAFTATE 1% CREAM 15 GM TUBE TP SCH ×2 (10:15→21:34)
[2018-10-01] MEDS: BACITRACIN 0.9 GM PACKET TP SCH ×2 (10:15→21:19)
[2018-10-01] MEDS: PRENATAL VITAMINS W/ FOLIC ACID TABLET (FP) PO SCH (10:16)
[2018-10-01] MEDS: PATIENT'S OWN MEDICATION (NON-FORMULARY) (Cetirizine Hcl [Cetirizine Hcl] 10 MG) PO SCH (10:16)
--- NOTE | 2018-10-01 11:04 | PN ---
Psychiatric Progress Note Vital Signs: Vital Signs Period Temp Pulse Resp BP Sys/Lieberman Pulse Ox Last 24 Hr 98.6 F 89 18-18 147/58 Date of Session: 09/29/18 Chief Complaint:: "my mood is not great and i still have difficulty sleeping. ROS: Hepatitis C (treated), seizure disorder (on dilantin), history of mitral valve stenosis and antecedent of syncopal attacks + treatment for pancreatitis. Current Medications: Active Medications Generic Name Dose Route Start Last Admin Trade Name Freq PRN Reason Stop Dose Admin Acetaminophen 650 mg 09/23/18 20:27 09/24/18 21:13 Tylenol - PO 650 mg Q4H PRN Administration FEVER Al Hydroxide/Mg Hydroxide 30 ml 09/23/18 20:27 09/29/18 13:41 Mylanta Oral Suspension - PO 30 ml Q6H PRN Administration DYSPEPSIA Bacitracin 0.9 gm 10/01/18 10:00 10/01/18 10:15 Bacitracin - TP 0.9 gm BID GUILLERMO Administration Bupropion HCl 150 mg 09/26/18 12:00 10/01/18 10:16 Wellbutrin Xl - PO 150 mg DAILY GUILLERMO Administration Cyclobenzaprine HCl 10 mg 10/01/18 14:00 Flexeril - PO TID GUILLERMO Eucalyptus/Menthol/Phenol/Sorbitol 1 each 09/23/18 20:27 Cepastat Lozenge - MM Q4H PRN SORE THROAT Guaifenesin 10 ml 09/23/18 20:27 Robitussin Dm - PO Q6H PRN COUGH Hydroxyzine Pamoate 25 mg 09/23/18 20:27 09/30/18 21:12 Vistaril - PO 25 mg Q4H PRN Administration ANXIETY Ibuprofen 400 mg 09/23/18 20:27 09/26/18 12:14 Motrin - PO 400 mg Q6H PRN Administration Pain Level 4-6 Lidocaine 1 patch 10/01/18 10:00 10/01/18 10:15 Lidoderm Patch - TP 1 patch DAILY GUILLERMO Administration Loperamide HCl 4 mg 09/23/18 20:27 Imodium - PO Q6H PRN DIARRHEA Magnesium Citrate 300 ml 09/23/18 20:27 Citroma - PO Q48H PRN CONSTIPATION Magnesium Hydroxide 30 ml 09/23/18 20:27 Milk Of Magnesia - PO DAILY PRN CONSTIPATION Methadone HCl 200 mg/ 210 mg 10/01/18 06:00 10/01/18 06:02 Methadone HCl 10 mg PO 210 mg DAILY@0600 GUILLERMO Administration Mirtazapine 15 mg 09/26/18 22:00 09/30/18 21:10 Remeron - PO 15 mg HS GUILLERMO Administration Miscellaneous 1 each 10/01/18 22:00 Lidoderm Patch Removal MC DAILY@2200 [facility] Non-Formulary Medication 10 mg 09/25/18 13:00 10/01/18 10:16 Cetirizine Hcl [Cetirizine Hcl] PO 10 mg DAILY GUILLERMO Administration Phenytoin Sodium 200 mg 09/25/18 22:00 10/01/18 06:01 Dilantin - PO 200 mg TID GUILLERMO Administration Multivit/Folic Acid/Iron 1 tab 09/24/18 10:00 10/01/18 10:16 Vitamins (Sjr) - PO 1 tab DAILY GUILLERMO Administration Pseudoephedrine/Triprolidine 1 combo 09/23/18 20:27 Actifed - PO TID PRN NASAL CONGESTION Thiamine HCl 100 mg 09/23/18 22:00 09/30/18 21:10 Vitamin B1 - PO 100 mg HS GUILLERMO Administration Tolnaftate 1 applic 10/01/18 10:00 10/01/18 10:15 Tinactin 1% Cream - TP 1 applic BID GUILLERMO Administration Trazodone HCl 150 mg 09/26/18 22:00 09/30/18 21:10 Desyrel - PO 150 mg HS GUILLERMO Administration Medication(s) Change(s): Yes. Will increase mirtzapine 15mg to 30mg Current Side Effect: No Lab tests ordered: No Lab tests reviewed: Yes Provider note:: Dr. Núñez and Dr. Villafuerte notes read and appreciated. Patient with a history of alcohol and benzodiazepine dependence who reports worsening mood and difficulty sleeping. Wellbutrin 300mg XL daily + Wellbutrin 150mg XL HS was discontinued after it was noted that patient had a seizure history and was nonadherent to anticonvulsant medication. Mirtzapine was also discontinued, and trazdone 150mg qhs was ordered. After several days patient was than restarted on Wellbutrin 150mg daily + Mirtazapine 15mg hs. Today, patient reports feeling down and is having difficulty sleeping. He's requesting for an increase in Wellbutrin and mirtazapine. In addition he's also asking for vistaril to be discontinued and benadryl to be added. Outfitter Cabin informed patient that Wellbutrin will not be increased due to his prior history of seizures and benadryl will not be substituted for vistaril. Outfitter Cabin will increase mirtazapine from 15mg to 30mg qhs. Patient encourgaed to follow up with his outpatient provider. Firms limits with patient required as patient appears to be manipulative. Patient satisified and receptive to feedback. Total face to face time:: 35 Mental Status Exam - Mental Status Exam Alert and Oriented to: Time, Place, Person Cognitive Function: Good Patient Appearance: Well Groomed Mood: Anxious, Euthymic Affect: Mood Congruent Patient Behavior: Cooperative Speech Pattern: Clear Voice Loudness: Mildly Soft/Quiet Thought Process: Goal Oriented Thought Disorder: Not Present Hallucinations: Denies Suicidal Ideation: Denies Homicidal Ideation: Denies Insight/Judgement: Poor Sleep: Poorly Appetite: Fair Muscle strength/Tone: Normal Gait/Station: Normal Psychiatric Treatment Plan - Problem List (1) Opioid dependence on agonist therapy Current Visit: Yes (2) Sedative hypnotic or anxiolytic dependence Current Visit: Yes (3) Substance induced mood disorder Current Visit: Yes (4) Mood disorder Current Visit: Yes (5) Substance-induced sleep disorder Current Visit: Yes (6) Alcohol dependence Current Visit: Yes
[2018-10-01] MEDS: CYCLOBENZAPRINE HCL 10 MG TABLET (FP) PO SCH ×2 (14:05→21:17)
[2018-10-01] MEDS: THIAMINE HCL 100 MG TABLET (FP) PO SCH (21:17)
[2018-10-01] MEDS: hydrOXYzine PAMOATE 25 MG CAPSULE (FP) PO PRN (21:18)
[2018-10-01] MEDS: traZODone HCL 50 MG TABLET (FP) PO SCH (21:18)
[2018-10-01] MEDS: MIRTAZAPINE 30 MG TABLET (FP) PO SCH (21:21)
[2018-10-01] MEDS: LIDOCAINE PATCH REMOVAL MC SCH (21:33)
[2018-10-02] MEDS ORDERED: METHADONE HCL 40 MG DISPERSABLE TABLET ONE (05:18)
[2018-10-02] MEDS ORDERED: METHADONE HCL 10 MG TABLET ONE (05:18)
[2018-10-02] MEDS: PHENYTOIN NA EXTENDED 100 MG CAPSULE (FP) PO SCH ×3 (06:08→21:27)
[2018-10-02] MEDS: METHADONE 200 MG, METHADONE 10 MG PO SCH (06:08)
[2018-10-02] MEDS: CYCLOBENZAPRINE HCL 10 MG TABLET (FP) PO SCH ×3 (06:08→21:27)
[2018-10-02] MEDS: PRENATAL VITAMINS W/ FOLIC ACID TABLET (FP) PO SCH (10:11)
[2018-10-02] MEDS: LIDOCAINE 5% TOPICAL PATCH TP SCH (10:11)
[2018-10-02] MEDS: BACITRACIN 0.9 GM PACKET TP SCH ×2 (10:11→21:27)
[2018-10-02] MEDS: PATIENT'S OWN MEDICATION (NON-FORMULARY) (Cetirizine Hcl [Cetirizine Hcl] 10 MG) PO SCH (10:11)
[2018-10-02] MEDS: TOLNAFTATE 1% CREAM 15 GM TUBE TP SCH ×2 (10:13→21:28)
[2018-10-02] MEDS: hydrOXYzine PAMOATE 25 MG CAPSULE (FP) PO PRN ×2 (12:27→21:30)
[2018-10-02] MEDS: THIAMINE HCL 100 MG TABLET (FP) PO SCH (21:27)
[2018-10-02] MEDS: traZODone HCL 50 MG TABLET (FP) PO SCH (21:27)
[2018-10-02] MEDS: MIRTAZAPINE 30 MG TABLET (FP) PO SCH (21:27)
[2018-10-02] MEDS: LIDOCAINE PATCH REMOVAL MC SCH (21:28)
[2018-10-03] MEDS ORDERED: METHADONE HCL 10 MG TABLET ONE (03:12)
[2018-10-03] MEDS ORDERED: METHADONE HCL 40 MG DISPERSABLE TABLET ONE (03:13)
[2018-10-03] MEDS: METHADONE 200 MG, METHADONE 10 MG PO SCH (06:03)
[2018-10-03] MEDS: CYCLOBENZAPRINE HCL 10 MG TABLET (FP) PO SCH (06:04)
[2018-10-03] MEDS: PHENYTOIN NA EXTENDED 100 MG CAPSULE (FP) PO SCH (06:04)
[2018-10-03 06:41] VITALS: BP 146/75; PULSE 79; TEMP 98
--- NOTE | 2018-10-03 09:13 | PN ---
[facility] Progress Note Note: PT IS BEING DISCHARGED TODAY [facility] [place] [place] [facility]. PT IS ALERT O X 3. PT INSTRUCTED TO CONTINUE WITH MEDICAL/PSCH MANAGEMENT RECOMMENDED WITH HIS PROVIDERS. ALL COPIES OF LABS GIVEN TO PATIENT IN DISCHARGE PACKAGE. Vital Signs 10/03/18 10/03/18 03:30 06:40 Temperature 98.0 F Pulse Rate 79 Respiratory 18 18 Rate Blood Pressure 146/75 Laboratory Tests 09/25/18 10/02/18 10:40 09:15 Phenytoin 3.7 L 1.8 L NAD PLAN:FOLLOW UP WITH PRIMARY CARE MANAGEMENT FOLLOW UP WITH CHEMICAL DEPENDENCY TREATMENT RECOMMENDED.
[2018-10-03] MEDS: PRENATAL VITAMINS W/ FOLIC ACID TABLET (FP) PO SCH (09:27)
[2018-10-03] MEDS: hydrOXYzine PAMOATE 25 MG CAPSULE (FP) PO PRN (09:27)
[2018-10-03] MEDS: LIDOCAINE 5% TOPICAL PATCH TP SCH (09:27)
[2018-10-03] MEDS: TOLNAFTATE 1% CREAM 15 GM TUBE TP SCH (09:28)
[2018-10-03] MEDS: BACITRACIN 0.9 GM PACKET TP SCH (09:28)
[2018-10-03] MEDS: PATIENT'S OWN MEDICATION (NON-FORMULARY) (Cetirizine Hcl [Cetirizine Hcl] 10 MG) PO SCH (09:28)
--- NOTE | 2018-10-03 09:38 | PN ---
Psychiatric Progress Note Vital Signs: Vital Signs Period Temp Pulse Resp BP Sys/Lieberman Pulse Ox Last 24 Hr 98.0 F 79 18-18 146/75 Date of Session: 10/03/18 Chief Complaint:: Discharge visit HPI: Opioid,Sedatives,Alcohol dependence comorbid with Substance induced mood disorder. ROS: Hep C,Low back pain,GERD. Current Medications: Active Medications Generic Name Dose Route Start Last Admin Trade Name Freq PRN Reason Stop Dose Admin Acetaminophen 650 mg 09/23/18 20:27 09/24/18 21:13 Tylenol - PO 650 mg Q4H PRN Administration FEVER Al Hydroxide/Mg Hydroxide 30 ml 09/23/18 20:27 09/29/18 13:41 Mylanta Oral Suspension - PO 30 ml Q6H PRN Administration DYSPEPSIA Bacitracin 0.9 gm 10/01/18 10:00 10/02/18 21:27 Bacitracin - TP 0.9 gm BID GUILLERMO Administration Bupropion HCl 150 mg 09/26/18 12:00 10/02/18 10:11 Wellbutrin Xl - PO 150 mg DAILY GUILLERMO Administration Cyclobenzaprine HCl 10 mg 10/01/18 14:00 10/03/18 06:04 Flexeril - PO 10 mg TID GUILLERMO Administration Eucalyptus/Menthol/Phenol/Sorbitol 1 each 09/23/18 20:27 Cepastat Lozenge - MM Q4H PRN SORE THROAT Guaifenesin 10 ml 09/23/18 20:27 Robitussin Dm - PO Q6H PRN COUGH Hydroxyzine Pamoate 25 mg 09/23/18 20:27 10/02/18 21:30 Vistaril - PO 25 mg Q4H PRN Administration ANXIETY Ibuprofen 400 mg 09/23/18 20:27 09/26/18 12:14 Motrin - PO 400 mg Q6H PRN Administration Pain Level 4-6 Lidocaine 1 patch 10/01/18 10:00 10/02/18 10:11 Lidoderm Patch - TP 1 patch DAILY GUILLERMO Administration Loperamide HCl 4 mg 09/23/18 20:27 Imodium - PO Q6H PRN DIARRHEA Magnesium Citrate 300 ml 09/23/18 20:27 Citroma - PO Q48H PRN CONSTIPATION Magnesium Hydroxide 30 ml 09/23/18 20:27 Milk Of Magnesia - PO DAILY PRN CONSTIPATION Methadone HCl 200 mg/ 210 mg 10/01/18 06:00 10/03/18 06:03 Methadone HCl 10 mg PO 210 mg DAILY@0600 [facility] Administration Mirtazapine 30 mg 10/01/18 22:00 10/02/18 21:27 Remeron - PO 30 mg HS GUILLERMO Administration Miscellaneous 1 each 10/01/18 22:00 10/02/18 21:28 Lidoderm Patch Removal MC Not Given DAILY@2200 [facility] Non-Formulary Medication 10 mg 09/25/18 13:00 10/02/18 10:11 Cetirizine Hcl [Cetirizine Hcl] PO 10 mg DAILY GUILLERMO Administration Phenytoin Sodium 200 mg 09/25/18 22:00 10/03/18 06:04 Dilantin - PO 200 mg TID GUILLERMO Administration Multivit/Folic Acid/Iron 1 tab 09/24/18 10:00 10/02/18 10:11 Vitamins (Sjr) - PO 1 tab DAILY GUILLERMO Administration Pseudoephedrine/Triprolidine 1 combo 09/23/18 20:27 Actifed - PO TID PRN NASAL CONGESTION Thiamine HCl 100 mg 09/23/18 22:00 10/02/18 21:27 Vitamin B1 - PO 100 mg HS GUILLERMO Administration Tolnaftate 1 applic 10/01/18 10:00 10/02/18 21:28 Tinactin 1% Cream - TP 1 applic BID GUILLERMO Administration Trazodone HCl 150 mg 09/26/18 22:00 10/02/18 21:27 Desyrel - PO 150 mg HS GUILLERMO Administration Current Side Effect: No Lab tests ordered: No Lab tests reviewed: Yes Provider note:: patient completed this program today.He has met his treatment goals and will continue to addres his issues on outaptient basis,will continue to attend [facility].Patient reports finding that current medications : remeron 30 mg po hs,trazodone 150 mg po hs and weelbutrin 150 mg o daily 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 Scripts for 30 days provided. Patient is stable for discharhge today. Total face to face time:: 30 Mental Status Exam - Mental Status Exam Alert and Oriented to: Time, Place, Person Cognitive Function: Grossly Intact Patient Appearance: Unkempt Mood: Irritable Affect: Labile Patient Behavior: Cooperative Speech Pattern: Clear Voice Loudness: Normal Thought Process: Goal Oriented Thought Disorder: Not Present Hallucinations: Denies Suicidal Ideation: Denies Homicidal Ideation: Denies Insight/Judgement: Fair Sleep: Fair Appetite: Good Muscle strength/Tone: Normal Gait/Station: Normal Psychiatric Treatment Plan - Problem List (1) Alcohol dependence Current Visit: Yes (2) Lower back pain Current Visit: Yes Qualifiers: Chronicity: acute Back pain laterality: bilateral Sciatica laterality: bilateral sciatica (3) Nicotine dependence Current Visit: Yes Qualifiers: Nicotine product type: cigarettes Substance use status: in withdrawal Qualified Code(s): F17.213 - Nicotine dependence, cigarettes, with withdrawal (4) Opioid dependence on agonist therapy Current Visit: Yes (5) Sedative hypnotic or anxiolytic dependence Current Visit: Yes
== END 2018-10-03 10:25 | disposition home or self-care (01) | DRG 772 ==
LOC: YASAS 19:24 → Y5N 19:50
PROVIDERS: ADMIT Psychiatry & Neurology Psychiatry; ATTEND Psychiatry & Neurology Psychiatry
PROC: HZ42ZZZ Group Counseling for Substance Abuse Treatment, Cognitive-Behavioral (ICD-10-PCS; principal; 2018-09-23)
DX: F10.20 Alcohol dependence, uncomplicated (principal); F11.20 Opioid dependence, uncomplicated; F13.20 Sedative, hypnotic or anxiolytic dependence, uncomplicated; F12.20 Cannabis dependence, uncomplicated; F17.213 Nicotine dependence, cigarettes, with withdrawal; F19.24 Other psychoactive substance dependence with psychoactive substance-induced mood disorder; F19.282 Other psychoactive substance dependence with psychoactive substance-induced sleep disorder; F43.10 Post-traumatic stress disorder, unspecified; M54.42 Lumbago with sciatica, left side; M54.41 Lumbago with sciatica, right side; B18.2 Chronic viral hepatitis C; B35.3 Tinea pedis; G40.909 Epilepsy, unspecified, not intractable, without status epilepticus; G47.00 Insomnia, unspecified; L84 Corns and callosities; K21.9 Gastro-esophageal reflux disease without esophagitis; S00.8 Superficial injury of other parts of head; X58.XXXS Exposure to other specified factors, sequela
CPT/HCPCS: 36415; 80185

== ENCOUNTER 2022-03-11 09:03 | Inpatient (IN) | payer OTHER ==
[2022-03-11] MEDS ORDERED: NICOTINE 10 MG CARTRIDGE (INHALER) IH PRN (10:02)
[2022-03-11] MEDS ORDERED: BISMUTH SUBSALICYLATE 262 MG/15 ML BTL PO PRN (10:02)
[2022-03-11] MEDS ORDERED: BENZOCAINE/MENTHOL (CHLORASEPTIC ) LOZENGE MM PRN (10:02)
[2022-03-11] MEDS ORDERED: ACETAMINOPHEN 325 MG TABLET (FP) PO PRN (10:02)
[2022-03-11] MEDS ORDERED: LOPERAMIDE HCL 2 MG CAPSULE PO PRN (10:02)
[2022-03-11] MEDS ORDERED: DICYCLOMINE HCL 10 MG CAPSULE PO PRN (10:02)
[2022-03-11] MEDS ORDERED: MAGNESIUM HYDROX 2400MG/30ML ORAL SUSPENSION 30 ML CUP PO PRN (10:02)
[2022-03-11] MEDS ORDERED: MAG HYDROX/AL HYDROX/SIMETH 30 ML UNIT-DOSE CUP PO PRN (10:02)
[2022-03-11] MEDS ORDERED: MAGNESIUM CITRATE 300 ML BOTTLE PO PRN (10:02)
[2022-03-11 10:25] VITALS: BMI 19.5
[2022-03-11] MEDS ORDERED: chlordiazePOXIDE HCL 25 MG CAPSULE ONE (10:43)
[2022-03-11] MEDS ORDERED: chlordiazePOXIDE HCL 25 MG CAPSULE PO ONE (10:45)
[2022-03-11] MEDS ORDERED: methaDONE HCL 10 MG TABLET PO SCH (11:30)
[2022-03-11] MEDS ORDERED: methaDONE HCL 10 MG TABLET ONE (13:09)
[2022-03-11] MEDS ORDERED: methaDONE HCL 40 MG DISPERSABLE TABLET ONE (13:10)
[2022-03-11] MEDS: PHENYTOIN NA EXTENDED 100 MG CAPSULE (FP) PO SCH ×2 (13:19→22:06)
[2022-03-11] MEDS: chlordiazePOXIDE HCL 25 MG CAPSULE PO SCH ×3 (13:20→22:05)
[2022-03-11] MEDS: NICOTINE 7 MG/24 HOURS TOPICAL PATCH TD SCH (13:20)
[2022-03-11] MEDS: PRENATAL VITAMINS W/ FOLIC ACID TABLET (FP) PO SCH (13:21)
[2022-03-11] MEDS: hydrOXYzine PAMOATE 25 MG CAPSULE (FP) PO SCH ×3 (14:27→22:06)
[2022-03-11 17:10] LABS: HEMATOCRIT 38.5 % (35.4-49); HEMOGLOBIN 12.9 GM/dL (11.7-16.9); MCH 34.1 pg (25.7-33.7); MCHC 33.5 g/dl (32.0-35.9); MEAN CELL VOLUME 101.8 fl (80-96); MEAN PLT VOLUME 7.7 fl (7.5-11.1); PLATELET COUNT 250 10^3/uL (134-434); RBC 3.78 M/mm3 (4.00-5.60); RDW 13.5 % (11.9-15.9); WHITE BLOOD COUNT 7.5 K/mm3 (4.0-10.0)
[2022-03-11 17:11] LABS: CALCIUM 9.4 mg/dL (8.5-10.1)
[2022-03-11 17:12] LABS: ALBUMIN 3.9 g/dl (3.4-5.0); BLOOD UREA NITROGEN 13.9 mg/dL (7-18)
[2022-03-11 17:15] LABS: CREATININE 0.8 mg/dL (0.55-1.3)
[2022-03-11 17:16] LABS: TOT PROT 6.7 g/dl (6.4-8.2)
[2022-03-11 17:17] LABS: BILIRUBIN,TOTAL 0.6 mg/dL (0.2-1)
[2022-03-11] MEDS: IBUPROFEN 400 MG TABLET (FP) PO PRN ×2 (17:51→23:30)
[2022-03-11] MEDS: ONDANSETRON *ODT* 4 MG TABLET SL PRN (17:52)
[2022-03-11] MEDS: TOLNAFTATE 1% CREAM 15 GM TUBE TP SCH (22:05)
[2022-03-11] MEDS: MELATONIN 5 MG TABLETS PO SCH (22:06)
[2022-03-11] MEDS: THIAMINE HCL 100 MG TABLET (FP) PO SCH (22:06)
[2022-03-11] MEDS: DOCUSATE SODIUM 100 MG CAPSULE (FP) PO SCH (22:06)
[2022-03-11] MEDS: METHOCARBAMOL 500 MG TABLET PO PRN (23:32)
[2022-03-12] MEDS ORDERED: methaDONE HCL 40 MG DISPERSABLE TABLET ONE (05:28)
[2022-03-12] MEDS ORDERED: methaDONE HCL 10 MG TABLET ONE (05:28)
[2022-03-12] MEDS: chlordiazePOXIDE HCL 25 MG CAPSULE PO SCH ×4 (05:30→22:27)
[2022-03-12] MEDS: PHENYTOIN NA EXTENDED 100 MG CAPSULE (FP) PO SCH ×4 (05:34→23:10)
[2022-03-12] MEDS: hydrOXYzine PAMOATE 25 MG CAPSULE (FP) PO SCH ×5 (05:34→22:26)
[2022-03-12] MEDS: IBUPROFEN 400 MG TABLET (FP) PO PRN ×3 (05:34→22:30)
[2022-03-12] MEDS: DOCUSATE SODIUM 100 MG CAPSULE (FP) PO SCH ×3 (05:35→22:27)
[2022-03-12] MEDS: NICOTINE 7 MG/24 HOURS TOPICAL PATCH TD SCH (10:19)
[2022-03-12] MEDS: PRENATAL VITAMINS W/ FOLIC ACID TABLET (FP) PO SCH (10:21)
[2022-03-12] MEDS: cloNIDine HCL 0.1 MG TABLET PO SCH (10:22)
[2022-03-12] MEDS: LORATADINE 10 MG TABLET PO SCH (10:22)
[2022-03-12] MEDS: HYDROCHLOROTHIAZIDE 12.5 MG CAPSULE (FP) PO SCH (10:22)
[2022-03-12] MEDS: TOLNAFTATE 1% CREAM 15 GM TUBE TP SCH ×2 (10:23→23:10)
[2022-03-12] MEDS: METHOCARBAMOL 500 MG TABLET PO PRN (12:52)
[2022-03-12] MEDS: chlordiazePOXIDE HCL 25 MG CAPSULE PO PRN (12:53)
[2022-03-12] MEDS: ONDANSETRON *ODT* 4 MG TABLET SL PRN (17:53)
[2022-03-12] MEDS ORDERED: DOCUSATE SODIUM 100 MG CAPSULE (FP) PO ONE (18:48)
[2022-03-12] MEDS: THIAMINE HCL 100 MG TABLET (FP) PO SCH (22:26)
[2022-03-12] MEDS: MELATONIN 5 MG TABLETS PO SCH (22:27)
[2022-03-13] MEDS ORDERED: methaDONE HCL 10 MG TABLET ONE (04:12)
[2022-03-13] MEDS ORDERED: methaDONE HCL 40 MG DISPERSABLE TABLET ONE (04:13)
[2022-03-13] MEDS: DOCUSATE SODIUM 100 MG CAPSULE (FP) PO SCH ×3 (05:46→22:06)
[2022-03-13] MEDS: chlordiazePOXIDE HCL 25 MG CAPSULE PO SCH ×4 (05:46→22:08)
[2022-03-13] MEDS: hydrOXYzine PAMOATE 25 MG CAPSULE (FP) PO SCH ×5 (05:46→22:07)
[2022-03-13] MEDS: PHENYTOIN NA EXTENDED 100 MG CAPSULE (FP) PO SCH ×3 (05:50→22:06)
[2022-03-13] MEDS: NICOTINE 7 MG/24 HOURS TOPICAL PATCH TD SCH (10:23)
[2022-03-13] MEDS: TOLNAFTATE 1% CREAM 15 GM TUBE TP SCH ×2 (10:23→22:06)
[2022-03-13] MEDS: LORATADINE 10 MG TABLET PO SCH (10:24)
[2022-03-13] MEDS: PRENATAL VITAMINS W/ FOLIC ACID TABLET (FP) PO SCH (10:24)
[2022-03-13] MEDS: cloNIDine HCL 0.1 MG TABLET PO SCH (10:24)
[2022-03-13] MEDS: HYDROCHLOROTHIAZIDE 12.5 MG CAPSULE (FP) PO SCH (10:24)
[2022-03-13] MEDS: IBUPROFEN 400 MG TABLET (FP) PO PRN ×2 (10:27→17:26)
[2022-03-13] MEDS: chlordiazePOXIDE HCL 25 MG CAPSULE PO PRN (13:18)
[2022-03-13] MEDS: METHOCARBAMOL 500 MG TABLET PO PRN (17:28)
[2022-03-13] MEDS: HYDROCORTISONE ACETATE 25 MG/SUPP.RECT RC SCH (22:05)
[2022-03-13] MEDS: QUEtiapine FUMARATE 100 MG TABLET (FP) PO SCH (22:06)
[2022-03-13] MEDS: MELATONIN 5 MG TABLETS PO SCH (22:06)
[2022-03-13] MEDS: SENNOSIDES 8.6MG TABLET (FP) PO SCH (22:07)
[2022-03-13] MEDS: THIAMINE HCL 100 MG TABLET (FP) PO SCH (22:07)
[2022-03-14] MEDS ORDERED: chlordiazePOXIDE HCL 10 MG CAPSULE PO PRN
[2022-03-14] MEDS ORDERED: methaDONE HCL 10 MG TABLET ONE (04:53)
[2022-03-14] MEDS ORDERED: methaDONE HCL 40 MG DISPERSABLE TABLET ONE (04:53)
[2022-03-14] MEDS: hydrOXYzine PAMOATE 25 MG CAPSULE (FP) PO SCH ×5 (05:47→22:20)
[2022-03-14] MEDS: DOCUSATE SODIUM 100 MG CAPSULE (FP) PO SCH ×3 (05:47→22:20)
[2022-03-14] MEDS: chlordiazePOXIDE HCL 10 MG CAPSULE PO SCH ×2 (05:48→10:22)
[2022-03-14] MEDS: IBUPROFEN 400 MG TABLET (FP) PO PRN ×3 (05:53→18:11)
[2022-03-14] MEDS: PHENYTOIN NA EXTENDED 100 MG CAPSULE (FP) PO SCH ×3 (06:16→22:20)
[2022-03-14] MEDS: TOLNAFTATE 1% CREAM 15 GM TUBE TP SCH ×2 (10:22→22:22)
[2022-03-14] MEDS: HYDROCHLOROTHIAZIDE 12.5 MG CAPSULE (FP) PO SCH (10:22)
[2022-03-14] MEDS: LORATADINE 10 MG TABLET PO SCH (10:22)
[2022-03-14] MEDS: cloNIDine HCL 0.1 MG TABLET PO SCH (10:22)
[2022-03-14] MEDS: PRENATAL VITAMINS W/ FOLIC ACID TABLET (FP) PO SCH (10:25)
[2022-03-14] MEDS: NICOTINE 7 MG/24 HOURS TOPICAL PATCH TD SCH (10:25)
[2022-03-14 11:19] LABS: BASO % 0.6 % (0-2.0); EOS % 7.3 % (0-4.5); HEMOGLOBIN 12.1 GM/dL (11.7-16.9); LYMPH % 31.8 % (8-40); MCH 34.2 pg (25.7-33.7); MCHC 33.5 g/dl (32.0-35.9); MEAN CELL VOLUME 102.3 fl (80-96); MEAN PLT VOLUME 8.5 fl (7.5-11.1); MONO % 18.2 % (3.8-10.2); NEUT % 42.1 % (42.8-82.8); PLATELET COUNT 226 10^3/uL (134-434); RBC 3.52 M/mm3 (4.00-5.60); WHITE BLOOD COUNT 5.3 K/mm3 (4.0-10.0)
[2022-03-14] MEDS ORDERED: LORazepam 1 MG TABLET PO PRN (11:33)
[2022-03-14 11:47] LABS: GLUCOSE,FASTING 87 mg/dL (74-106)
[2022-03-14 11:50] LABS: SGOT/AST 20 U/L (15-37)
[2022-03-14] MEDS: LORazepam 1 MG TABLET PO SCH ×3 (12:31→22:44)
[2022-03-14] MEDS: METHOCARBAMOL 500 MG TABLET PO PRN ×2 (12:34→18:10)
[2022-03-14] MEDS: ACETAMINOPHEN 325 MG TABLET (FP) PO PRN (13:29)
[2022-03-14] MEDS: HYDROCORTISONE ACETATE 25 MG/SUPP.RECT RC SCH (22:19)
[2022-03-14] MEDS: THIAMINE HCL 100 MG TABLET (FP) PO SCH (22:20)
[2022-03-14] MEDS: MELATONIN 5 MG TABLETS PO SCH (22:20)
[2022-03-14] MEDS: QUEtiapine FUMARATE 100 MG TABLET (FP) PO SCH (22:20)
[2022-03-14] MEDS: SENNOSIDES 8.6MG TABLET (FP) PO SCH (22:22)
[2022-03-15] MEDS ORDERED: LORazepam 0.5 MG TABLET PO PRN (00:01)
[2022-03-15] MEDS ORDERED: chlordiazePOXIDE HCL 10 MG CAPSULE PO SCH (05:00)
[2022-03-15] MEDS ORDERED: methaDONE HCL 10 MG TABLET ONE (05:56)
[2022-03-15] MEDS ORDERED: methaDONE HCL 40 MG DISPERSABLE TABLET ONE (05:57)
[2022-03-15] MEDS: LORazepam 0.5 MG TABLET PO SCH ×4 (05:57→22:21)
[2022-03-15] MEDS: DOCUSATE SODIUM 100 MG CAPSULE (FP) PO SCH ×3 (05:58→22:20)
[2022-03-15] MEDS: hydrOXYzine PAMOATE 25 MG CAPSULE (FP) PO SCH ×5 (05:58→22:20)
[2022-03-15] MEDS: LORATADINE 10 MG TABLET PO SCH (10:21)
[2022-03-15] MEDS: PRENATAL VITAMINS W/ FOLIC ACID TABLET (FP) PO SCH (10:21)
[2022-03-15] MEDS: HYDROCHLOROTHIAZIDE 12.5 MG CAPSULE (FP) PO SCH (10:21)
[2022-03-15] MEDS: cloNIDine HCL 0.1 MG TABLET PO SCH (10:22)
[2022-03-15] MEDS: NICOTINE 7 MG/24 HOURS TOPICAL PATCH TD SCH (10:22)
[2022-03-15] MEDS: TOLNAFTATE 1% CREAM 15 GM TUBE TP SCH ×2 (10:23→22:39)
[2022-03-15] MEDS: IBUPROFEN 400 MG TABLET (FP) PO PRN ×2 (10:23→17:39)
[2022-03-15] MEDS: METHOCARBAMOL 500 MG TABLET PO PRN ×2 (10:23→17:41)
[2022-03-15] MEDS: ACETAMINOPHEN 325 MG TABLET (FP) PO PRN ×2 (13:29→22:22)
[2022-03-15] MEDS ORDERED: QUEtiapine FUMARATE 200 MG TABLET PO SCH (22:00)
[2022-03-15] MEDS: HYDROCORTISONE ACETATE 25 MG/SUPP.RECT RC SCH (22:19)
[2022-03-15] MEDS: THIAMINE HCL 100 MG TABLET (FP) PO SCH (22:20)
[2022-03-15] MEDS: MELATONIN 5 MG TABLETS PO SCH (22:25)
[2022-03-15] MEDS: SENNOSIDES 8.6MG TABLET (FP) PO SCH (22:25)
[2022-03-16] MEDS ORDERED: methaDONE HCL 10 MG TABLET ONE (03:48)
[2022-03-16] MEDS ORDERED: methaDONE HCL 40 MG DISPERSABLE TABLET ONE (03:49)
[2022-03-16] MEDS ORDERED: chlordiazePOXIDE HCL 10 MG CAPSULE PO ONE (05:00)
[2022-03-16] MEDS: hydrOXYzine PAMOATE 25 MG CAPSULE (FP) PO SCH ×5 (05:15→23:15)
[2022-03-16] MEDS: LORazepam 0.5 MG TABLET PO SCH (05:15)
[2022-03-16] MEDS: DOCUSATE SODIUM 100 MG CAPSULE (FP) PO SCH ×3 (05:15→22:48)
[2022-03-16] MEDS: NICOTINE 7 MG/24 HOURS TOPICAL PATCH TD SCH (09:15)
[2022-03-16] MEDS: LORATADINE 10 MG TABLET PO SCH (09:15)
[2022-03-16] MEDS: HYDROCHLOROTHIAZIDE 12.5 MG CAPSULE (FP) PO SCH (09:15)
[2022-03-16] MEDS: cloNIDine HCL 0.1 MG TABLET PO SCH (09:15)
[2022-03-16] MEDS: PRENATAL VITAMINS W/ FOLIC ACID TABLET (FP) PO SCH (09:15)
[2022-03-16] MEDS: TOLNAFTATE 1% CREAM 15 GM TUBE TP SCH ×2 (09:16→23:15)
[2022-03-16] MEDS: ONDANSETRON *ODT* 4 MG TABLET SL PRN (16:52)
[2022-03-16] MEDS: IBUPROFEN 400 MG TABLET (FP) PO PRN (17:33)
[2022-03-16] MEDS: METHOCARBAMOL 500 MG TABLET PO PRN (17:33)
[2022-03-16] MEDS ORDERED: QUEtiapine FUMARATE 300 MG TABLET PO SCH (22:00)
[2022-03-16] MEDS ORDERED: LORazepam 0.5 MG TABLET PO SCH (22:00)
[2022-03-16] MEDS: THIAMINE HCL 100 MG TABLET (FP) PO SCH (22:45)
[2022-03-16] MEDS: MELATONIN 5 MG TABLETS PO SCH (22:46)
[2022-03-16] MEDS: SENNOSIDES 8.6MG TABLET (FP) PO SCH (22:46)
[2022-03-16] MEDS: HYDROCORTISONE ACETATE 25 MG/SUPP.RECT RC SCH (22:48)
[2022-03-17] MEDS ORDERED: methaDONE HCL 10 MG TABLET ONE (04:46)
[2022-03-17] MEDS ORDERED: methaDONE HCL 40 MG DISPERSABLE TABLET ONE (04:46)
[2022-03-17] MEDS: hydrOXYzine PAMOATE 25 MG CAPSULE (FP) PO SCH ×2 (05:34→10:04)
[2022-03-17] MEDS: DOCUSATE SODIUM 100 MG CAPSULE (FP) PO SCH (05:36)
[2022-03-17] MEDS ORDERED: LORazepam 0.5 MG TABLET PO ONE (06:00)
[2022-03-17 09:51] VITALS: BP 108/68; PULSE 94; TEMP 98.6
[2022-03-17] MEDS: LORATADINE 10 MG TABLET PO SCH (10:04)
[2022-03-17] MEDS: cloNIDine HCL 0.1 MG TABLET PO SCH (10:04)
[2022-03-17] MEDS: PRENATAL VITAMINS W/ FOLIC ACID TABLET (FP) PO SCH (10:04)
[2022-03-17] MEDS: NICOTINE 7 MG/24 HOURS TOPICAL PATCH TD SCH (10:05)
[2022-03-17] MEDS: HYDROCHLOROTHIAZIDE 12.5 MG CAPSULE (FP) PO SCH (10:05)
[2022-03-17] MEDS: TOLNAFTATE 1% CREAM 15 GM TUBE TP SCH (10:07)
== END 2022-03-17 11:38 | disposition other institution (70) | DRG 773 ==
LOC: YASAS 09:03 → Y3N 11:53
PROVIDERS: ADMIT Allergy & Immunology; ATTEND Allergy & Immunology
PROC: HZ2ZZZZ Detoxification Services for Substance Abuse Treatment (ICD-10-PCS; principal; 2022-03-11)
DX: F10.230 Alcohol dependence with withdrawal, uncomplicated (principal); F11.20 Opioid dependence, uncomplicated; F13.20 Sedative, hypnotic or anxiolytic dependence, uncomplicated; F14.20 Cocaine dependence, uncomplicated; F12.20 Cannabis dependence, uncomplicated; F17.210 Nicotine dependence, cigarettes, uncomplicated; F19.24 Other psychoactive substance dependence with psychoactive substance-induced mood disorder; K59.00 Constipation, unspecified; K64.9 Unspecified hemorrhoids; K21.9 Gastro-esophageal reflux disease without esophagitis; M54.41 Lumbago with sciatica, right side; M54.42 Lumbago with sciatica, left side; G40.909 Epilepsy, unspecified, not intractable, without status epilepticus; F41.9 Anxiety disorder, unspecified; F43.10 Post-traumatic stress disorder, unspecified; G47.00 Insomnia, unspecified; B35.3 Tinea pedis; R63.4 Abnormal weight loss; Z68.1 Body mass index [BMI] 19.9 or less, adult; R73.9 Hyperglycemia, unspecified; R74.01 Elevation of levels of liver transaminase levels; Z87.820 Personal history of traumatic brain injury; Z88.8 Allergy status to other drugs, medicaments and biological substances; Z59.01 Sheltered homelessness
CPT/HCPCS: 36415; 71046-TC-FY; 80053; 82947; 83036; 84450; 85025; 85027; 86780; 87811; 93005; 93010; C9803-CS; J0735; Q0162; U0003; U0005

== ENCOUNTER 2022-03-17 11:45 | Inpatient (IN) | payer OTHER ==
[2022-03-17] MEDS ORDERED: BENZOCAINE/MENTHOL (CHLORASEPTIC ) LOZENGE MM PRN (14:54)
[2022-03-17] MEDS ORDERED: MAG HYDROX/AL HYDROX/SIMETH 30 ML UNIT-DOSE CUP PO PRN (14:54)
[2022-03-17] MEDS ORDERED: guaiFENesin 200 MG/10 ML 10 ML UNIT-DOSE CUPS PO PRN (14:54)
[2022-03-17] MEDS ORDERED: P-EPHED 60MG/TRIPROLIDI 2.5MG TABLET PO PRN (14:54)
[2022-03-17] MEDS ORDERED: MAGNESIUM HYDROX 2400MG/30ML ORAL SUSPENSION 30 ML CUP PO PRN (14:54)
[2022-03-17] MEDS ORDERED: LOPERAMIDE HCL 2 MG CAPSULE PO PRN (14:54)
[2022-03-17] MEDS ORDERED: MAGNESIUM CITRATE 300 ML BOTTLE PO PRN (14:54)
[2022-03-17] MEDS ORDERED: NICOTINE 10 MG CARTRIDGE (INHALER) IH PRN (14:54)
[2022-03-17] MEDS: METHOCARBAMOL 500 MG TABLET PO SCH ×2 (17:38→21:26)
[2022-03-17] MEDS: hydrOXYzine PAMOATE 25 MG CAPSULE (FP) PO SCH ×2 (17:39→21:29)
[2022-03-17] MEDS: IBUPROFEN 400 MG TABLET (FP) PO PRN (19:05)
[2022-03-17] MEDS: QUEtiapine FUMARATE 100 MG TABLET (FP) PO SCH (21:26)
[2022-03-17] MEDS: TOLNAFTATE 1% CREAM 15 GM TUBE TP SCH (21:26)
[2022-03-17] MEDS: THIAMINE HCL 100 MG TABLET (FP) PO SCH (21:27)
[2022-03-17] MEDS: MELATONIN 5 MG TABLETS PO SCH (21:27)
[2022-03-17] MEDS: DOCUSATE SODIUM 100 MG CAPSULE (FP) PO SCH (21:28)
[2022-03-17] MEDS: SENNOSIDES 8.6MG TABLET (FP) PO SCH (21:29)
[2022-03-18] MEDS: DOCUSATE SODIUM 100 MG CAPSULE (FP) PO SCH ×3 (06:12→21:09)
[2022-03-18] MEDS: hydrOXYzine PAMOATE 25 MG CAPSULE (FP) PO SCH ×2 (06:12→10:54)
[2022-03-18] MEDS: methaDONE HCL 40 MG DISPERSABLE TABLET PO SCH (06:32)
[2022-03-18] MEDS: IBUPROFEN 400 MG TABLET (FP) PO PRN ×3 (07:33→21:10)
[2022-03-18] MEDS: HYDROCHLOROTHIAZIDE 12.5 MG CAPSULE (FP) PO SCH (10:54)
[2022-03-18] MEDS: METHOCARBAMOL 500 MG TABLET PO SCH ×4 (10:54→21:10)
[2022-03-18] MEDS: cloNIDine HCL 0.1 MG TABLET PO SCH (10:54)
[2022-03-18] MEDS: PRENATAL VITAMINS W/ FOLIC ACID TABLET (FP) PO SCH (10:55)
[2022-03-18] MEDS: TOLNAFTATE 1% CREAM 15 GM TUBE TP SCH ×2 (10:56→21:10)
[2022-03-18] MEDS: NICOTINE 7 MG/24 HOURS TOPICAL PATCH TD SCH (10:56)
[2022-03-18] MEDS: ACETAMINOPHEN 325 MG TABLET (FP) PO PRN (17:06)
[2022-03-18] MEDS: HYDROCORTISONE 2.5% TOPICAL CREAM 30 GM TUBE TP SCH (21:08)
[2022-03-18] MEDS: THIAMINE HCL 100 MG TABLET (FP) PO SCH (21:09)
[2022-03-18] MEDS: MELATONIN 5 MG TABLETS PO SCH (21:09)
[2022-03-18] MEDS: QUEtiapine FUMARATE 100 MG TABLET (FP) PO SCH (21:09)
[2022-03-18] MEDS: SENNOSIDES 8.6MG TABLET (FP) PO SCH (21:10)
[2022-03-19] MEDS: DOCUSATE SODIUM 100 MG CAPSULE (FP) PO SCH ×3 (05:55→21:24)
[2022-03-19] MEDS: methaDONE HCL 40 MG DISPERSABLE TABLET PO SCH (05:55)
[2022-03-19] MEDS: IBUPROFEN 400 MG TABLET (FP) PO PRN ×3 (05:57→21:26)
[2022-03-19] MEDS: cloNIDine HCL 0.1 MG TABLET PO SCH (10:05)
[2022-03-19] MEDS: NICOTINE 7 MG/24 HOURS TOPICAL PATCH TD SCH (10:05)
[2022-03-19] MEDS: HYDROCHLOROTHIAZIDE 12.5 MG CAPSULE (FP) PO SCH (10:05)
[2022-03-19] MEDS: PRENATAL VITAMINS W/ FOLIC ACID TABLET (FP) PO SCH (10:05)
[2022-03-19] MEDS: METHOCARBAMOL 500 MG TABLET PO SCH ×4 (10:05→21:24)
[2022-03-19] MEDS: TOLNAFTATE 1% CREAM 15 GM TUBE TP SCH ×2 (10:06→21:25)
[2022-03-19] MEDS: ACETAMINOPHEN 325 MG TABLET (FP) PO PRN ×2 (10:45→17:40)
[2022-03-19] MEDS: ONDANSETRON *ODT* 4 MG TABLET SL PRN (17:40)
[2022-03-19] MEDS: MELATONIN 5 MG TABLETS PO SCH (21:24)
[2022-03-19] MEDS: HYDROCORTISONE 2.5% TOPICAL CREAM 30 GM TUBE TP SCH (21:24)
[2022-03-19] MEDS: QUEtiapine FUMARATE 100 MG TABLET (FP) PO SCH (21:25)
[2022-03-19] MEDS: THIAMINE HCL 100 MG TABLET (FP) PO SCH (21:25)
[2022-03-19] MEDS: SENNOSIDES 8.6MG TABLET (FP) PO SCH (21:25)
[2022-03-20] MEDS ORDERED: methaDONE HCL 10 MG TABLET ONE (04:04)
[2022-03-20] MEDS ORDERED: methaDONE HCL 40 MG DISPERSABLE TABLET ONE (04:04)
[2022-03-20] MEDS: DOCUSATE SODIUM 100 MG CAPSULE (FP) PO SCH ×3 (05:52→21:19)
[2022-03-20] MEDS: IBUPROFEN 400 MG TABLET (FP) PO PRN ×3 (05:55→19:33)
[2022-03-20] MEDS: NICOTINE 7 MG/24 HOURS TOPICAL PATCH TD SCH (10:07)
[2022-03-20] MEDS: cloNIDine HCL 0.1 MG TABLET PO SCH (10:07)
[2022-03-20] MEDS: PRENATAL VITAMINS W/ FOLIC ACID TABLET (FP) PO SCH (10:07)
[2022-03-20] MEDS: TOLNAFTATE 1% CREAM 15 GM TUBE TP SCH ×2 (10:07→21:21)
[2022-03-20] MEDS: HYDROCHLOROTHIAZIDE 12.5 MG CAPSULE (FP) PO SCH (10:07)
[2022-03-20] MEDS: METHOCARBAMOL 500 MG TABLET PO SCH ×4 (10:07→21:19)
[2022-03-20] MEDS: ONDANSETRON *ODT* 4 MG TABLET SL PRN (14:33)
[2022-03-20] MEDS: MELATONIN 5 MG TABLETS PO SCH (21:19)
[2022-03-20] MEDS: THIAMINE HCL 100 MG TABLET (FP) PO SCH (21:19)
[2022-03-20] MEDS: QUEtiapine FUMARATE 100 MG TABLET (FP) PO SCH (21:19)
[2022-03-20] MEDS: HYDROCORTISONE 2.5% TOPICAL CREAM 30 GM TUBE TP SCH (21:20)
[2022-03-20] MEDS: SENNOSIDES 8.6MG TABLET (FP) PO SCH (21:21)
[2022-03-20] MEDS: ACETAMINOPHEN 325 MG TABLET (FP) PO PRN (21:21)
[2022-03-21] MEDS ORDERED: methaDONE HCL 10 MG TABLET ONE (05:50)
[2022-03-21] MEDS ORDERED: methaDONE HCL 40 MG DISPERSABLE TABLET ONE (05:51)
[2022-03-21] MEDS: DOCUSATE SODIUM 100 MG CAPSULE (FP) PO SCH ×3 (05:51→21:06)
[2022-03-21] MEDS: IBUPROFEN 400 MG TABLET (FP) PO PRN ×3 (05:52→21:07)
[2022-03-21] MEDS: HYDROCHLOROTHIAZIDE 12.5 MG CAPSULE (FP) PO SCH (10:05)
[2022-03-21] MEDS: METHOCARBAMOL 500 MG TABLET PO SCH ×4 (10:05→21:07)
[2022-03-21] MEDS: NICOTINE 7 MG/24 HOURS TOPICAL PATCH TD SCH (10:05)
[2022-03-21] MEDS: PRENATAL VITAMINS W/ FOLIC ACID TABLET (FP) PO SCH (10:05)
[2022-03-21] MEDS: cloNIDine HCL 0.1 MG TABLET PO SCH (10:05)
[2022-03-21] MEDS: TOLNAFTATE 1% CREAM 15 GM TUBE TP SCH ×2 (10:05→21:47)
[2022-03-21] MEDS: ACETAMINOPHEN 325 MG TABLET (FP) PO PRN ×2 (10:09→16:55)
[2022-03-21] MEDS: ONDANSETRON *ODT* 4 MG TABLET SL PRN (11:44)
[2022-03-21] MEDS: HYDROCORTISONE 2.5% TOPICAL CREAM 30 GM TUBE TP SCH (21:05)
[2022-03-21] MEDS: QUEtiapine FUMARATE 100 MG TABLET (FP) PO SCH (21:06)
[2022-03-21] MEDS: MELATONIN 5 MG TABLETS PO SCH (21:06)
[2022-03-21] MEDS: THIAMINE HCL 100 MG TABLET (FP) PO SCH (21:07)
[2022-03-21] MEDS: SENNOSIDES 8.6MG TABLET (FP) PO SCH (21:07)
[2022-03-22] MEDS ORDERED: methaDONE HCL 40 MG DISPERSABLE TABLET ONE (05:22)
[2022-03-22] MEDS ORDERED: methaDONE HCL 10 MG TABLET ONE (05:22)
[2022-03-22] MEDS: DOCUSATE SODIUM 100 MG CAPSULE (FP) PO SCH ×3 (06:00→21:20)
[2022-03-22] MEDS: IBUPROFEN 400 MG TABLET (FP) PO PRN ×3 (06:03→21:22)
[2022-03-22] MEDS: METHOCARBAMOL 500 MG TABLET PO SCH ×4 (10:21→21:20)
[2022-03-22] MEDS: PRENATAL VITAMINS W/ FOLIC ACID TABLET (FP) PO SCH (10:21)
[2022-03-22] MEDS: NICOTINE 7 MG/24 HOURS TOPICAL PATCH TD SCH (10:21)
[2022-03-22] MEDS: HYDROCHLOROTHIAZIDE 12.5 MG CAPSULE (FP) PO SCH (10:21)
[2022-03-22] MEDS: cloNIDine HCL 0.1 MG TABLET PO SCH (10:21)
[2022-03-22] MEDS: ACETAMINOPHEN 325 MG TABLET (FP) PO PRN (10:23)
[2022-03-22] MEDS: TOLNAFTATE 1% CREAM 15 GM TUBE TP SCH ×2 (10:23→21:22)
[2022-03-22] MEDS: hydrOXYzine PAMOATE 25 MG CAPSULE (FP) PO PRN (13:57)
[2022-03-22 14:09] LABS: SARS-CoV-2 NAA Not Detected (Not Detected)
[2022-03-22] MEDS: THIAMINE HCL 100 MG TABLET (FP) PO SCH (21:20)
[2022-03-22] MEDS: MELATONIN 5 MG TABLETS PO SCH (21:20)
[2022-03-22] MEDS: QUEtiapine FUMARATE 100 MG TABLET (FP) PO SCH (21:20)
[2022-03-22] MEDS: SENNOSIDES 8.6MG TABLET (FP) PO SCH (21:21)
[2022-03-22] MEDS: HYDROCORTISONE 2.5% TOPICAL CREAM 30 GM TUBE TP SCH (21:23)
[2022-03-23] MEDS ORDERED: methaDONE HCL 10 MG TABLET ONE (02:59)
[2022-03-23] MEDS ORDERED: methaDONE HCL 40 MG DISPERSABLE TABLET ONE (03:00)
[2022-03-23] MEDS: IBUPROFEN 400 MG TABLET (FP) PO PRN (06:01)
[2022-03-23] MEDS: DOCUSATE SODIUM 100 MG CAPSULE (FP) PO SCH ×3 (06:02→21:04)
[2022-03-23] MEDS: cloNIDine HCL 0.1 MG TABLET PO SCH (09:49)
[2022-03-23] MEDS: METHOCARBAMOL 500 MG TABLET PO SCH ×4 (09:49→21:07)
[2022-03-23] MEDS: HYDROCHLOROTHIAZIDE 12.5 MG CAPSULE (FP) PO SCH (09:49)
[2022-03-23] MEDS: hydrOXYzine PAMOATE 25 MG CAPSULE (FP) PO PRN ×2 (09:50→14:46)
[2022-03-23] MEDS: PRENATAL VITAMINS W/ FOLIC ACID TABLET (FP) PO SCH (09:50)
[2022-03-23] MEDS: ACETAMINOPHEN 325 MG TABLET (FP) PO PRN (09:50)
[2022-03-23] MEDS: NICOTINE 7 MG/24 HOURS TOPICAL PATCH TD SCH (09:51)
[2022-03-23] MEDS: TOLNAFTATE 1% CREAM 15 GM TUBE TP SCH ×2 (13:01→21:05)
[2022-03-23] MEDS: QUEtiapine FUMARATE 100 MG TABLET (FP) PO SCH (21:04)
[2022-03-23] MEDS: THIAMINE HCL 100 MG TABLET (FP) PO SCH (21:04)
[2022-03-23] MEDS: MELATONIN 5 MG TABLETS PO SCH (21:04)
[2022-03-23] MEDS: HYDROCORTISONE 2.5% TOPICAL CREAM 30 GM TUBE TP SCH (21:05)
[2022-03-23] MEDS: SENNOSIDES 8.6MG TABLET (FP) PO SCH (21:05)
[2022-03-24] MEDS ORDERED: methaDONE HCL 40 MG DISPERSABLE TABLET ONE (03:46)
[2022-03-24] MEDS ORDERED: methaDONE HCL 10 MG TABLET ONE (03:46)
[2022-03-24] MEDS: DOCUSATE SODIUM 100 MG CAPSULE (FP) PO SCH ×3 (05:55→21:36)
[2022-03-24] MEDS: IBUPROFEN 400 MG TABLET (FP) PO PRN ×3 (05:58→21:36)
[2022-03-24] MEDS: PRENATAL VITAMINS W/ FOLIC ACID TABLET (FP) PO SCH (09:24)
[2022-03-24] MEDS: cloNIDine HCL 0.1 MG TABLET PO SCH (09:24)
[2022-03-24] MEDS: HYDROCHLOROTHIAZIDE 12.5 MG CAPSULE (FP) PO SCH (09:24)
[2022-03-24] MEDS: METHOCARBAMOL 500 MG TABLET PO SCH ×4 (09:24→21:35)
[2022-03-24] MEDS: TOLNAFTATE 1% CREAM 15 GM TUBE TP SCH ×2 (09:25→22:02)
[2022-03-24] MEDS: NICOTINE 7 MG/24 HOURS TOPICAL PATCH TD SCH (09:25)
[2022-03-24] MEDS: hydrOXYzine PAMOATE 25 MG CAPSULE (FP) PO PRN (18:38)
[2022-03-24] MEDS: THIAMINE HCL 100 MG TABLET (FP) PO SCH (21:36)
[2022-03-24] MEDS: QUEtiapine FUMARATE 100 MG TABLET (FP) PO SCH (21:36)
[2022-03-24] MEDS: MELATONIN 5 MG TABLETS PO SCH (21:36)
[2022-03-24] MEDS: SENNOSIDES 8.6MG TABLET (FP) PO SCH (21:37)
[2022-03-24] MEDS: HYDROCORTISONE 2.5% TOPICAL CREAM 30 GM TUBE TP SCH (21:37)
[2022-03-25] MEDS ORDERED: methaDONE HCL 10 MG TABLET ONE (02:49)
[2022-03-25] MEDS ORDERED: methaDONE HCL 40 MG DISPERSABLE TABLET ONE (02:50)
[2022-03-25] MEDS: DOCUSATE SODIUM 100 MG CAPSULE (FP) PO SCH ×3 (06:12→21:06)
[2022-03-25] MEDS: IBUPROFEN 400 MG TABLET (FP) PO PRN ×2 (06:15→14:13)
[2022-03-25] MEDS: hydrOXYzine PAMOATE 25 MG CAPSULE (FP) PO PRN ×2 (08:23→14:13)
[2022-03-25] MEDS: HYDROCHLOROTHIAZIDE 12.5 MG CAPSULE (FP) PO SCH (10:05)
[2022-03-25] MEDS: cloNIDine HCL 0.1 MG TABLET PO SCH (10:06)
[2022-03-25] MEDS: METHOCARBAMOL 500 MG TABLET PO SCH ×4 (10:06→21:26)
[2022-03-25] MEDS: TOLNAFTATE 1% CREAM 15 GM TUBE TP SCH ×2 (10:06→21:26)
[2022-03-25] MEDS: PRENATAL VITAMINS W/ FOLIC ACID TABLET (FP) PO SCH (10:06)
[2022-03-25] MEDS: NICOTINE 7 MG/24 HOURS TOPICAL PATCH TD SCH (10:06)
[2022-03-25] MEDS: QUEtiapine FUMARATE 100 MG TABLET (FP) PO SCH (21:06)
[2022-03-25] MEDS: MELATONIN 5 MG TABLETS PO SCH (21:06)
[2022-03-25] MEDS: SENNOSIDES 8.6MG TABLET (FP) PO SCH (21:06)
[2022-03-25] MEDS: HYDROCORTISONE 2.5% TOPICAL CREAM 30 GM TUBE TP SCH (21:07)
[2022-03-25] MEDS: THIAMINE HCL 100 MG TABLET (FP) PO SCH (21:26)
[2022-03-26] MEDS ORDERED: methaDONE HCL 10 MG TABLET ONE (02:55)
[2022-03-26] MEDS ORDERED: methaDONE HCL 40 MG DISPERSABLE TABLET ONE (02:56)
[2022-03-26] MEDS: IBUPROFEN 400 MG TABLET (FP) PO PRN (06:18)
[2022-03-26] MEDS: DOCUSATE SODIUM 100 MG CAPSULE (FP) PO SCH ×3 (06:18→21:30)
[2022-03-26] MEDS: hydrOXYzine PAMOATE 25 MG CAPSULE (FP) PO PRN ×2 (10:40→14:47)
[2022-03-26] MEDS: TOLNAFTATE 1% CREAM 15 GM TUBE TP SCH ×2 (10:40→21:32)
[2022-03-26] MEDS: NICOTINE 7 MG/24 HOURS TOPICAL PATCH TD SCH (10:40)
[2022-03-26] MEDS: cloNIDine HCL 0.1 MG TABLET PO SCH (10:40)
[2022-03-26] MEDS: PRENATAL VITAMINS W/ FOLIC ACID TABLET (FP) PO SCH (10:40)
[2022-03-26] MEDS: HYDROCHLOROTHIAZIDE 12.5 MG CAPSULE (FP) PO SCH (10:40)
[2022-03-26] MEDS: METHOCARBAMOL 500 MG TABLET PO SCH ×4 (10:40→21:31)
[2022-03-26] MEDS: ACETAMINOPHEN 325 MG TABLET (FP) PO PRN ×2 (14:48→21:31)
[2022-03-26] MEDS: QUEtiapine FUMARATE 100 MG TABLET (FP) PO SCH (21:30)
[2022-03-26] MEDS: MELATONIN 5 MG TABLETS PO SCH (21:31)
[2022-03-26] MEDS: THIAMINE HCL 100 MG TABLET (FP) PO SCH (21:31)
[2022-03-26] MEDS: HYDROCORTISONE 2.5% TOPICAL CREAM 30 GM TUBE TP SCH (21:32)
[2022-03-26] MEDS: SENNOSIDES 8.6MG TABLET (FP) PO SCH (21:32)
[2022-03-27] MEDS ORDERED: methaDONE HCL 40 MG DISPERSABLE TABLET ONE (03:54)
[2022-03-27] MEDS ORDERED: methaDONE HCL 10 MG TABLET ONE (03:54)
[2022-03-27] MEDS: DOCUSATE SODIUM 100 MG CAPSULE (FP) PO SCH ×3 (05:51→21:37)
[2022-03-27] MEDS: IBUPROFEN 400 MG TABLET (FP) PO PRN (10:05)
[2022-03-27] MEDS: TOLNAFTATE 1% CREAM 15 GM TUBE TP SCH ×2 (10:05→21:38)
[2022-03-27] MEDS: HYDROCHLOROTHIAZIDE 12.5 MG CAPSULE (FP) PO SCH (10:05)
[2022-03-27] MEDS: METHOCARBAMOL 500 MG TABLET PO SCH ×4 (10:05→21:37)
[2022-03-27] MEDS: cloNIDine HCL 0.1 MG TABLET PO SCH (10:05)
[2022-03-27] MEDS: PRENATAL VITAMINS W/ FOLIC ACID TABLET (FP) PO SCH (10:05)
[2022-03-27] MEDS: NICOTINE 7 MG/24 HOURS TOPICAL PATCH TD SCH (10:05)
[2022-03-27] MEDS: hydrOXYzine PAMOATE 25 MG CAPSULE (FP) PO PRN (10:05)
[2022-03-27] MEDS: ACETAMINOPHEN 325 MG TABLET (FP) PO PRN (14:20)
[2022-03-27] MEDS: QUEtiapine FUMARATE 100 MG TABLET (FP) PO SCH (21:37)
[2022-03-27] MEDS: THIAMINE HCL 100 MG TABLET (FP) PO SCH (21:37)
[2022-03-27] MEDS: MELATONIN 5 MG TABLETS PO SCH (21:37)
[2022-03-27] MEDS: SENNOSIDES 8.6MG TABLET (FP) PO SCH (21:38)
[2022-03-27] MEDS: HYDROCORTISONE 2.5% TOPICAL CREAM 30 GM TUBE TP SCH (21:38)
[2022-03-28] MEDS ORDERED: methaDONE HCL 10 MG TABLET ONE (05:44)
[2022-03-28] MEDS ORDERED: methaDONE HCL 40 MG DISPERSABLE TABLET ONE (05:44)
[2022-03-28] MEDS: DOCUSATE SODIUM 100 MG CAPSULE (FP) PO SCH ×3 (06:02→21:11)
[2022-03-28] MEDS: IBUPROFEN 400 MG TABLET (FP) PO PRN ×2 (08:56→21:27)
[2022-03-28] MEDS: hydrOXYzine PAMOATE 25 MG CAPSULE (FP) PO PRN ×2 (08:57→14:31)
[2022-03-28] MEDS: PRENATAL VITAMINS W/ FOLIC ACID TABLET (FP) PO SCH (10:28)
[2022-03-28] MEDS: METHOCARBAMOL 500 MG TABLET PO SCH ×4 (10:28→21:11)
[2022-03-28] MEDS: cloNIDine HCL 0.1 MG TABLET PO SCH (10:28)
[2022-03-28] MEDS: HYDROCHLOROTHIAZIDE 12.5 MG CAPSULE (FP) PO SCH (10:28)
[2022-03-28] MEDS: NICOTINE 7 MG/24 HOURS TOPICAL PATCH TD SCH (10:29)
[2022-03-28] MEDS: TOLNAFTATE 1% CREAM 15 GM TUBE TP SCH ×2 (10:29→22:32)
[2022-03-28] MEDS: QUEtiapine FUMARATE 100 MG TABLET (FP) PO SCH (21:11)
[2022-03-28] MEDS: SENNOSIDES 8.6MG TABLET (FP) PO SCH (21:12)
[2022-03-28] MEDS: THIAMINE HCL 100 MG TABLET (FP) PO SCH (21:12)
[2022-03-28] MEDS: MELATONIN 5 MG TABLETS PO SCH (21:13)
[2022-03-28] MEDS: HYDROCORTISONE 2.5% TOPICAL CREAM 30 GM TUBE TP SCH (21:13)
[2022-03-29] MEDS ORDERED: methaDONE HCL 10 MG TABLET ONE (02:53)
[2022-03-29] MEDS ORDERED: methaDONE HCL 40 MG DISPERSABLE TABLET ONE (02:54)
[2022-03-29] MEDS: DOCUSATE SODIUM 100 MG CAPSULE (FP) PO SCH (05:53)
[2022-03-29] MEDS: IBUPROFEN 400 MG TABLET (FP) PO PRN (05:56)
[2022-03-29 06:49] VITALS: BP 120/72; PULSE 82; TEMP 97.8
[2022-03-29] MEDS: METHOCARBAMOL 500 MG TABLET PO SCH (08:55)
[2022-03-29] MEDS: PRENATAL VITAMINS W/ FOLIC ACID TABLET (FP) PO SCH (08:55)
[2022-03-29] MEDS: cloNIDine HCL 0.1 MG TABLET PO SCH (08:55)
== END 2022-03-29 09:15 | disposition home or self-care (01) | DRG 772 ==
LOC: YASAS 11:45 → Y3W 11:46
PROVIDERS: ADMIT Allergy & Immunology; ATTEND Psychiatry & Neurology Pain Medicine
PROC: HZ42ZZZ Group Counseling for Substance Abuse Treatment, Cognitive-Behavioral (ICD-10-PCS; principal; 2022-03-17)
DX: F10.20 Alcohol dependence, uncomplicated (principal); F11.20 Opioid dependence, uncomplicated; F13.20 Sedative, hypnotic or anxiolytic dependence, uncomplicated; F14.20 Cocaine dependence, uncomplicated; F17.210 Nicotine dependence, cigarettes, uncomplicated; F19.24 Other psychoactive substance dependence with psychoactive substance-induced mood disorder; F39 Unspecified mood [affective] disorder; G47.00 Insomnia, unspecified; Z86.19 Personal history of other infectious and parasitic diseases; Z87.19 Personal history of other diseases of the digestive system; Z86.79 Personal history of other diseases of the circulatory system; Z88.8 Allergy status to other drugs, medicaments and biological substances
CPT/HCPCS: 80185; C9803-CS; J0735; Q0162; U0003; U0005

== ENCOUNTER 2022-06-25 08:00 | Inpatient (IN) | payer OTHER ==
[2022-06-24 18:17] VITALS: BMI 20.9
[2022-06-25] MEDS: THIAMINE HCL 100 MG TABLET (FP) PO SCH ×2 (01:36→22:07)
[2022-06-25] MEDS: hydrOXYzine PAMOATE 25 MG CAPSULE (FP) PO SCH ×3 (01:36→10:10)
[2022-06-25] MEDS: MELATONIN 5 MG TABLETS PO SCH ×2 (01:36→22:07)
[~2022-06-25 08:00] MED LIST: ACETAMINOPHEN 325 MG TABLET (FP) PO PRN; BENZOCAINE/MENTHOL (CHLORASEPTIC ) LOZENGE MM PRN; BISMUTH SUBSALICYLATE 524 MG/30 ML PO PRN; DICYCLOMINE HCL 10 MG CAPSULE PO PRN; IBUPROFEN 400 MG TABLET (FP) PO PRN; IBUPROFEN 600 MG TABLET (FP) PO PRN; LOPERAMIDE HCL 2 MG CAPSULE PO PRN; MAG HYDROX/AL HYDROX/SIMETH 30 ML UNIT-DOSE CUP PO PRN; MAGNESIUM CITRATE 300 ML BOTTLE PO PRN; MAGNESIUM HYDROX 2400MG/30ML ORAL SUSPENSION 30 ML CUP PO PRN; METHOCARBAMOL 500 MG TABLET PO PRN; NICOTINE 10 MG CARTRIDGE (INHALER) IH PRN; ONDANSETRON *ODT* 4 MG TABLET SL PRN; hydrOXYzine PAMOATE 25 MG CAPSULE (FP) PO ONE
[2022-06-25 10:03] LABS: HEMATOCRIT 36.6 % (35.4-49); HEMOGLOBIN 12.6 GM/dL (11.7-16.9); MCH 34.8 pg (25.7-33.7); MCHC 34.4 g/dl (32.0-35.9); MEAN CELL VOLUME 100.9 fl (80-96); MEAN PLT VOLUME 7.6 fl (7.5-11.1); PLATELET COUNT 233 10^3/uL (134-434); RBC 3.63 M/mm3 (4.00-5.60); RDW 13.9 % (11.9-15.9); WHITE BLOOD COUNT 3.5 K/mm3 (4.0-10.0)
[2022-06-25 10:05] LABS: CALCIUM 9.1 mg/dL (8.5-10.1)
[2022-06-25 10:06] LABS: ALBUMIN 3.3 g/dl (3.4-5.0); BLOOD UREA NITROGEN 14.3 mg/dL (7-18)
[2022-06-25 10:09] LABS: CREATININE 0.7 mg/dL (0.55-1.3)
[2022-06-25] MEDS: PRENATAL VITAMINS W/ FOLIC ACID TABLET (FP) PO SCH (10:10)
[2022-06-25 10:11] LABS: TOT PROT 6.1 g/dl (6.4-8.2)
[2022-06-25] MEDS ORDERED: chlordiazePOXIDE HCL 25 MG CAPSULE PO PRN (11:42)
[2022-06-25] MEDS ORDERED: methaDONE HCL 40 MG DISPERSABLE TABLET PO SCH (12:45)
[2022-06-25] MEDS: chlordiazePOXIDE HCL 25 MG CAPSULE PO SCH ×3 (13:07→22:07)
[2022-06-26] MEDS: chlordiazePOXIDE HCL 25 MG CAPSULE PO SCH ×4 (05:21→22:11)
[2022-06-26] MEDS: PRENATAL VITAMINS W/ FOLIC ACID TABLET (FP) PO SCH (10:10)
[2022-06-26] MEDS: THIAMINE HCL 100 MG TABLET (FP) PO SCH (22:11)
[2022-06-26] MEDS: MELATONIN 5 MG TABLETS PO SCH (22:11)
[2022-06-27] MEDS: chlordiazePOXIDE HCL 25 MG CAPSULE PO SCH ×4 (05:34→22:16)
[2022-06-27] MEDS: PRENATAL VITAMINS W/ FOLIC ACID TABLET (FP) PO SCH (10:17)
[2022-06-27] MEDS: THIAMINE HCL 100 MG TABLET (FP) PO SCH (22:16)
[2022-06-27] MEDS: QUEtiapine FUMARATE 200 MG TABLET PO SCH (22:16)
[2022-06-27] MEDS: MELATONIN 5 MG TABLETS PO SCH (22:17)
[2022-06-28] MEDS ORDERED: chlordiazePOXIDE HCL 10 MG CAPSULE PO PRN
[2022-06-28] MEDS: chlordiazePOXIDE HCL 10 MG CAPSULE PO SCH ×4 (05:20→22:44)
[2022-06-28] MEDS: PRENATAL VITAMINS W/ FOLIC ACID TABLET (FP) PO SCH (10:05)
[2022-06-28] MEDS: QUEtiapine FUMARATE 200 MG TABLET PO SCH (22:44)
[2022-06-28] MEDS: THIAMINE HCL 100 MG TABLET (FP) PO SCH (22:44)
[2022-06-28] MEDS: MELATONIN 5 MG TABLETS PO SCH (22:45)
[2022-06-29] MEDS: chlordiazePOXIDE HCL 10 MG CAPSULE PO SCH ×2 (06:10→19:17)
[2022-06-29] MEDS: PRENATAL VITAMINS W/ FOLIC ACID TABLET (FP) PO SCH (10:14)
[2022-06-29] MEDS: HYDROCHLOROTHIAZIDE 12.5 MG CAPSULE (FP) PO SCH (10:14)
[2022-06-29] MEDS: THIAMINE HCL 100 MG TABLET (FP) PO SCH (22:14)
[2022-06-29] MEDS: MELATONIN 5 MG TABLETS PO SCH (22:14)
[2022-06-29] MEDS: QUEtiapine FUMARATE 200 MG TABLET PO SCH (22:14)
[2022-06-30] MEDS ORDERED: chlordiazePOXIDE HCL 10 MG CAPSULE PO ONE (05:00)
[2022-06-30 05:56] VITALS: TEMP 97.5
[2022-06-30] MEDS: PRENATAL VITAMINS W/ FOLIC ACID TABLET (FP) PO SCH (10:18)
[2022-06-30] MEDS: HYDROCHLOROTHIAZIDE 12.5 MG CAPSULE (FP) PO SCH (11:13)
[2022-06-30 11:15] VITALS: BP 117/78; PULSE 79; RESP 16
== END 2022-06-30 11:25 | disposition other institution (70) | DRG 773 ==
LOC: YASAS 08:00 → Y3N 11:57
PROVIDERS: ADMIT Allergy & Immunology; ATTEND Surgery
PROC: HZ2ZZZZ Detoxification Services for Substance Abuse Treatment (ICD-10-PCS; principal; 2022-06-25)
DX: F10.230 Alcohol dependence with withdrawal, uncomplicated (principal); F11.20 Opioid dependence, uncomplicated; F14.20 Cocaine dependence, uncomplicated; F13.20 Sedative, hypnotic or anxiolytic dependence, uncomplicated; F17.210 Nicotine dependence, cigarettes, uncomplicated; F19.24 Other psychoactive substance dependence with psychoactive substance-induced mood disorder; G47.00 Insomnia, unspecified; G40.909 Epilepsy, unspecified, not intractable, without status epilepticus; M54.50 Low back pain, unspecified; Z86.79 Personal history of other diseases of the circulatory system; Z87.19 Personal history of other diseases of the digestive system; Z86.19 Personal history of other infectious and parasitic diseases; Z88.8 Allergy status to other drugs, medicaments and biological substances; Z59.00 Homelessness unspecified
CPT/HCPCS: 36415; 80053; 80185; 84075; 84450; 84460; 85027; 86780; 87811; C9803-CS; U0003; U0005

== ENCOUNTER 2022-06-30 11:28 | Inpatient (IN) | payer OTHER ==
[2022-06-30] MEDS ORDERED: MAG HYDROX/AL HYDROX/SIMETH 30 ML UNIT-DOSE CUP PO PRN (12:26)
[2022-06-30] MEDS ORDERED: P-EPHED 60MG/TRIPROLIDI 2.5MG TABLET PO PRN (12:26)
[2022-06-30] MEDS ORDERED: guaiFENesin 200 MG/10 ML 10 ML UNIT-DOSE CUPS PO PRN (12:26)
[2022-06-30] MEDS ORDERED: NICOTINE 10 MG CARTRIDGE (INHALER) IH PRN (12:26)
[2022-06-30] MEDS ORDERED: LOPERAMIDE HCL 2 MG CAPSULE PO PRN (12:26)
[2022-06-30] MEDS ORDERED: MAGNESIUM HYDROX 2400MG/30ML ORAL SUSPENSION 30 ML CUP PO PRN (12:26)
[2022-06-30] MEDS ORDERED: MAGNESIUM CITRATE 300 ML BOTTLE PO PRN (12:26)
[2022-06-30] MEDS ORDERED: ACETAMINOPHEN 325 MG TABLET (FP) PO PRN (12:26)
[2022-06-30] MEDS: THIAMINE HCL 100 MG TABLET (FP) PO SCH (21:16)
[2022-06-30] MEDS: MELATONIN 5 MG TABLETS PO SCH (21:16)
[2022-06-30] MEDS ORDERED: QUEtiapine FUMARATE 100 MG TABLET (FP) ONE (21:17)
[2022-06-30] MEDS: QUEtiapine FUMARATE 300 MG TABLET PO SCH (21:17)
[2022-07-01] MEDS ORDERED: methaDONE HCL 40 MG DISPERSABLE TABLET PO SCH (10:00)
[2022-07-01] MEDS: PRENATAL VITAMINS W/ FOLIC ACID TABLET (FP) PO SCH (10:00)
[2022-07-01] MEDS: HYDROCHLOROTHIAZIDE 12.5 MG CAPSULE (FP) PO SCH (10:00)
[2022-07-01] MEDS: NICOTINE 7 MG/24 HOURS TOPICAL PATCH TD SCH (10:01)
[2022-07-01 10:07] LABS: HEMATOCRIT 40.4 % (35.4-49); HEMOGLOBIN 13.4 GM/dL (11.7-16.9); MCH 33.9 pg (25.7-33.7); MCHC 33.2 g/dl (32.0-35.9); MEAN PLT VOLUME 8.4 fl (7.5-11.1); PLATELET COUNT 233 10^3/uL (134-434); RBC 3.96 M/mm3 (4.00-5.60); RDW 13.8 % (11.9-15.9); WHITE BLOOD COUNT 5.3 K/mm3 (4.0-10.0)
[2022-07-01 12:13] LABS: ALBUMIN 3.6 g/dl (3.4-5.0); BLOOD UREA NITROGEN 15.2 mg/dL (7-18); CALCIUM 9.7 mg/dL (8.5-10.1)
[2022-07-01 12:16] LABS: CREATININE 0.8 mg/dL (0.55-1.3)
[2022-07-01 12:18] LABS: BILIRUBIN,TOTAL 0.8 mg/dL (0.2-1); TOT PROT 6.7 g/dl (6.4-8.2)
[2022-07-01 14:26] LABS: PH,URINE 6.5 (5.0-8.0); URINE APPEARANCE CLEAR; URINE BILIRUBIN NEGATIVE (NEGATIVE); URINE COLOR YELLOW; URINE GLUCOSE (UA) NEGATIVE (NEGATIVE); URINE KETONE NEGATIVE (NEGATIVE); URINE LEUK ESTERASE NEGATIVE (NEGATIVE); URINE NITRITE NEGATIVE (NEGATIVE); URINE PROTEIN NEGATIVE (NEGATIVE); URINE UROBILINOGEN 0.2 mg/dL (0.2-1.0)
[2022-07-01] MEDS ORDERED: ONDANSETRON *ODT* 4 MG TABLET SL PRN (15:01)
[2022-07-01] MEDS ORDERED: QUEtiapine FUMARATE 100 MG TABLET (FP) ONE (18:39)
[2022-07-01] MEDS: QUEtiapine FUMARATE 300 MG TABLET PO SCH (21:36)
[2022-07-01] MEDS: THIAMINE HCL 100 MG TABLET (FP) PO SCH (21:36)
[2022-07-01] MEDS: MELATONIN 5 MG TABLETS PO SCH (21:36)
[2022-07-01] MEDS ORDERED: QUEtiapine FUMARATE 300 MG TABLET PO SCH (22:00)
[2022-07-02] MEDS: HYDROCHLOROTHIAZIDE 12.5 MG CAPSULE (FP) PO SCH (09:16)
[2022-07-02] MEDS: NICOTINE 7 MG/24 HOURS TOPICAL PATCH TD SCH (09:16)
[2022-07-02] MEDS: PRENATAL VITAMINS W/ FOLIC ACID TABLET (FP) PO SCH (09:16)
[2022-07-02] MEDS ORDERED: QUEtiapine FUMARATE 100 MG TABLET (FP) ONE (19:22)
[2022-07-02] MEDS: hydrOXYzine PAMOATE 25 MG CAPSULE (FP) PO PRN (21:47)
[2022-07-02] MEDS: THIAMINE HCL 100 MG TABLET (FP) PO SCH (21:47)
[2022-07-02] MEDS: QUEtiapine FUMARATE 300 MG TABLET PO SCH (21:48)
[2022-07-02] MEDS: MELATONIN 5 MG TABLETS PO SCH (21:48)
[2022-07-03] MEDS: PRENATAL VITAMINS W/ FOLIC ACID TABLET (FP) PO SCH (09:42)
[2022-07-03] MEDS: NICOTINE 7 MG/24 HOURS TOPICAL PATCH TD SCH (09:42)
[2022-07-03] MEDS: HYDROCHLOROTHIAZIDE 12.5 MG CAPSULE (FP) PO SCH (09:43)
[2022-07-03] MEDS ORDERED: ELECTROLYTE,ORAL 118 ML SOLUTION PO ONE (13:00)
[2022-07-03] MEDS ORDERED: QUEtiapine FUMARATE 100 MG TABLET (FP) ONE (19:15)
[2022-07-03] MEDS: QUEtiapine FUMARATE 300 MG TABLET PO SCH (21:19)
[2022-07-03] MEDS: THIAMINE HCL 100 MG TABLET (FP) PO SCH (21:19)
[2022-07-03] MEDS: IBUPROFEN 400 MG TABLET (FP) PO PRN (21:19)
[2022-07-03] MEDS: hydrOXYzine PAMOATE 25 MG CAPSULE (FP) PO PRN (21:19)
[2022-07-03] MEDS: MELATONIN 5 MG TABLETS PO SCH (21:20)
[2022-07-04] MEDS: PRENATAL VITAMINS W/ FOLIC ACID TABLET (FP) PO SCH (09:46)
[2022-07-04] MEDS: NICOTINE 7 MG/24 HOURS TOPICAL PATCH TD SCH (09:47)
[2022-07-04] MEDS: hydrOXYzine PAMOATE 25 MG CAPSULE (FP) PO PRN ×2 (14:56→21:30)
[2022-07-04] MEDS ORDERED: QUEtiapine FUMARATE 100 MG TABLET (FP) ONE (19:39)
[2022-07-04] MEDS: THIAMINE HCL 100 MG TABLET (FP) PO SCH (21:30)
[2022-07-04] MEDS: QUEtiapine FUMARATE 300 MG TABLET PO SCH (21:30)
[2022-07-04] MEDS: MELATONIN 5 MG TABLETS PO SCH (21:31)
[2022-07-05] MEDS: PRENATAL VITAMINS W/ FOLIC ACID TABLET (FP) PO SCH (09:28)
[2022-07-05] MEDS: NICOTINE 7 MG/24 HOURS TOPICAL PATCH TD SCH (09:28)
[2022-07-05] MEDS: hydrOXYzine PAMOATE 25 MG CAPSULE (FP) PO PRN (16:34)
[2022-07-05] MEDS ORDERED: QUEtiapine FUMARATE 100 MG TABLET (FP) ONE (18:33)
[2022-07-05] MEDS: QUEtiapine FUMARATE 300 MG TABLET PO SCH (21:17)
[2022-07-05] MEDS: THIAMINE HCL 100 MG TABLET (FP) PO SCH (21:17)
[2022-07-05] MEDS: MELATONIN 5 MG TABLETS PO SCH (21:17)
[2022-07-06] MEDS: PRENATAL VITAMINS W/ FOLIC ACID TABLET (FP) PO SCH (10:03)
[2022-07-06] MEDS: NICOTINE 7 MG/24 HOURS TOPICAL PATCH TD SCH (10:03)
[2022-07-06] MEDS: hydrOXYzine PAMOATE 25 MG CAPSULE (FP) PO PRN (10:05)
[2022-07-06] MEDS ORDERED: QUEtiapine FUMARATE 100 MG TABLET (FP) ONE (18:49)
[2022-07-06] MEDS: MELATONIN 5 MG TABLETS PO SCH (21:20)
[2022-07-06] MEDS: THIAMINE HCL 100 MG TABLET (FP) PO SCH (21:20)
[2022-07-06] MEDS: QUEtiapine FUMARATE 300 MG TABLET PO SCH (21:21)
[2022-07-07] MEDS: hydrOXYzine PAMOATE 25 MG CAPSULE (FP) PO PRN (08:59)
[2022-07-07] MEDS: PRENATAL VITAMINS W/ FOLIC ACID TABLET (FP) PO SCH (10:46)
[2022-07-07] MEDS: NICOTINE 7 MG/24 HOURS TOPICAL PATCH TD SCH (10:46)
[2022-07-07] MEDS ORDERED: QUEtiapine FUMARATE 100 MG TABLET (FP) ONE (18:56)
[2022-07-07] MEDS: THIAMINE HCL 100 MG TABLET (FP) PO SCH (21:04)
[2022-07-07] MEDS: MELATONIN 5 MG TABLETS PO SCH (21:04)
[2022-07-07] MEDS: QUEtiapine FUMARATE 300 MG TABLET PO SCH (21:05)
[2022-07-08] MEDS: NICOTINE 7 MG/24 HOURS TOPICAL PATCH TD SCH (10:46)
[2022-07-08] MEDS: PRENATAL VITAMINS W/ FOLIC ACID TABLET (FP) PO SCH (10:46)
[2022-07-08] MEDS: hydrOXYzine PAMOATE 25 MG CAPSULE (FP) PO PRN ×2 (10:46→21:45)
[2022-07-08] MEDS ORDERED: QUEtiapine FUMARATE 100 MG TABLET (FP) ONE (19:29)
[2022-07-08] MEDS: THIAMINE HCL 100 MG TABLET (FP) PO SCH (21:44)
[2022-07-08] MEDS: QUEtiapine FUMARATE 300 MG TABLET PO SCH (21:45)
[2022-07-08] MEDS: MELATONIN 5 MG TABLETS PO SCH (21:45)
[2022-07-09] MEDS: NICOTINE 7 MG/24 HOURS TOPICAL PATCH TD SCH (09:41)
[2022-07-09] MEDS: PRENATAL VITAMINS W/ FOLIC ACID TABLET (FP) PO SCH (09:41)
[2022-07-09] MEDS: hydrOXYzine PAMOATE 25 MG CAPSULE (FP) PO PRN (09:42)
[2022-07-09] MEDS ORDERED: QUEtiapine FUMARATE 100 MG TABLET (FP) ONE (18:45)
[2022-07-09] MEDS: THIAMINE HCL 100 MG TABLET (FP) PO SCH (21:14)
[2022-07-09] MEDS: MELATONIN 5 MG TABLETS PO SCH (21:14)
[2022-07-09] MEDS: QUEtiapine FUMARATE 300 MG TABLET PO SCH (21:15)
[2022-07-10] MEDS: hydrOXYzine PAMOATE 25 MG CAPSULE (FP) PO PRN ×2 (10:01→21:17)
[2022-07-10] MEDS: NICOTINE 7 MG/24 HOURS TOPICAL PATCH TD SCH (10:01)
[2022-07-10] MEDS: PRENATAL VITAMINS W/ FOLIC ACID TABLET (FP) PO SCH (10:01)
[2022-07-10] MEDS ORDERED: QUEtiapine FUMARATE 100 MG TABLET (FP) ONE (18:21)
[2022-07-10] MEDS: QUEtiapine FUMARATE 300 MG TABLET PO SCH (21:16)
[2022-07-10] MEDS: MELATONIN 5 MG TABLETS PO SCH (21:16)
[2022-07-10] MEDS: THIAMINE HCL 100 MG TABLET (FP) PO SCH (21:16)
[2022-07-11] MEDS: hydrOXYzine PAMOATE 25 MG CAPSULE (FP) PO PRN ×2 (09:51→21:13)
[2022-07-11] MEDS: PRENATAL VITAMINS W/ FOLIC ACID TABLET (FP) PO SCH (10:14)
[2022-07-11] MEDS: NICOTINE 7 MG/24 HOURS TOPICAL PATCH TD SCH (10:14)
[2022-07-11] MEDS ORDERED: QUEtiapine FUMARATE 100 MG TABLET (FP) ONE (18:35)
[2022-07-11] MEDS: MELATONIN 5 MG TABLETS PO SCH (21:13)
[2022-07-11] MEDS: THIAMINE HCL 100 MG TABLET (FP) PO SCH (21:13)
[2022-07-11] MEDS: QUEtiapine FUMARATE 300 MG TABLET PO SCH (21:18)
[2022-07-12] MEDS: PRENATAL VITAMINS W/ FOLIC ACID TABLET (FP) PO SCH (09:43)
[2022-07-12] MEDS: NICOTINE 7 MG/24 HOURS TOPICAL PATCH TD SCH (09:43)
[2022-07-12] MEDS: hydrOXYzine PAMOATE 25 MG CAPSULE (FP) PO PRN ×3 (09:44→21:39)
[2022-07-12] MEDS ORDERED: QUEtiapine FUMARATE 100 MG TABLET (FP) ONE (19:25)
[2022-07-12] MEDS: MELATONIN 5 MG TABLETS PO SCH (21:39)
[2022-07-12] MEDS: QUEtiapine FUMARATE 300 MG TABLET PO SCH (21:39)
[2022-07-12] MEDS: THIAMINE HCL 100 MG TABLET (FP) PO SCH (21:39)
[2022-07-13] MEDS: NICOTINE 7 MG/24 HOURS TOPICAL PATCH TD SCH (09:35)
[2022-07-13] MEDS: hydrOXYzine PAMOATE 25 MG CAPSULE (FP) PO PRN ×2 (09:35→21:17)
[2022-07-13] MEDS: PRENATAL VITAMINS W/ FOLIC ACID TABLET (FP) PO SCH (09:35)
[2022-07-13] MEDS: IBUPROFEN 400 MG TABLET (FP) PO PRN (12:06)
[2022-07-13] MEDS ORDERED: QUEtiapine FUMARATE 100 MG TABLET (FP) ONE (18:34)
[2022-07-13] MEDS: MELATONIN 5 MG TABLETS PO SCH (21:17)
[2022-07-13] MEDS: THIAMINE HCL 100 MG TABLET (FP) PO SCH (21:17)
[2022-07-13] MEDS: QUEtiapine FUMARATE 300 MG TABLET PO SCH (21:18)
[2022-07-14] MEDS: IBUPROFEN 400 MG TABLET (FP) PO PRN (07:51)
[2022-07-14] MEDS: NICOTINE 7 MG/24 HOURS TOPICAL PATCH TD SCH (09:36)
[2022-07-14] MEDS: hydrOXYzine PAMOATE 25 MG CAPSULE (FP) PO PRN ×2 (09:36→21:07)
[2022-07-14] MEDS: PRENATAL VITAMINS W/ FOLIC ACID TABLET (FP) PO SCH (09:36)
[2022-07-14] MEDS ORDERED: QUEtiapine FUMARATE 100 MG TABLET (FP) ONE (18:49)
[2022-07-14] MEDS: MELATONIN 5 MG TABLETS PO SCH (21:07)
[2022-07-14] MEDS: QUEtiapine FUMARATE 300 MG TABLET PO SCH (21:07)
[2022-07-14] MEDS: THIAMINE HCL 100 MG TABLET (FP) PO SCH (21:07)
[2022-07-15] MEDS ORDERED: methaDONE HCL 10 MG TABLET PO SCH (06:00)
[2022-07-15] MEDS: PRENATAL VITAMINS W/ FOLIC ACID TABLET (FP) PO SCH (09:45)
[2022-07-15] MEDS: hydrOXYzine PAMOATE 25 MG CAPSULE (FP) PO PRN ×3 (09:46→21:06)
[2022-07-15] MEDS: NICOTINE 7 MG/24 HOURS TOPICAL PATCH TD SCH (09:47)
[2022-07-15] MEDS ORDERED: QUEtiapine FUMARATE 100 MG TABLET (FP) ONE (18:36)
[2022-07-15] MEDS: MELATONIN 5 MG TABLETS PO SCH (21:06)
[2022-07-15] MEDS: THIAMINE HCL 100 MG TABLET (FP) PO SCH (21:06)
[2022-07-15] MEDS: QUEtiapine FUMARATE 300 MG TABLET PO SCH (21:07)
[2022-07-16] MEDS: hydrOXYzine PAMOATE 25 MG CAPSULE (FP) PO PRN (09:32)
[2022-07-16] MEDS: PRENATAL VITAMINS W/ FOLIC ACID TABLET (FP) PO SCH (09:32)
[2022-07-16] MEDS: NICOTINE 7 MG/24 HOURS TOPICAL PATCH TD SCH (09:32)
[2022-07-16] MEDS ORDERED: QUEtiapine FUMARATE 100 MG TABLET (FP) ONE (20:09)
[2022-07-16] MEDS: THIAMINE HCL 100 MG TABLET (FP) PO SCH (21:21)
[2022-07-16] MEDS: MELATONIN 5 MG TABLETS PO SCH (21:21)
[2022-07-16] MEDS: QUEtiapine FUMARATE 300 MG TABLET PO SCH (21:21)
[2022-07-17] MEDS: NICOTINE 7 MG/24 HOURS TOPICAL PATCH TD SCH (09:34)
[2022-07-17] MEDS: hydrOXYzine PAMOATE 25 MG CAPSULE (FP) PO PRN (09:34)
[2022-07-17] MEDS: PRENATAL VITAMINS W/ FOLIC ACID TABLET (FP) PO SCH (09:34)
[2022-07-17] MEDS ORDERED: QUEtiapine FUMARATE 100 MG TABLET (FP) ONE (20:12)
[2022-07-17] MEDS: THIAMINE HCL 100 MG TABLET (FP) PO SCH (22:06)
[2022-07-17] MEDS: MELATONIN 5 MG TABLETS PO SCH (22:06)
[2022-07-17] MEDS: QUEtiapine FUMARATE 300 MG TABLET PO SCH (22:06)
[2022-07-18] MEDS: PRENATAL VITAMINS W/ FOLIC ACID TABLET (FP) PO SCH (09:32)
[2022-07-18] MEDS: NICOTINE 7 MG/24 HOURS TOPICAL PATCH TD SCH (09:33)
[2022-07-18] MEDS: hydrOXYzine PAMOATE 25 MG CAPSULE (FP) PO PRN ×2 (09:33→21:20)
[2022-07-18] MEDS ORDERED: QUEtiapine FUMARATE 100 MG TABLET (FP) ONE (18:13)
[2022-07-18] MEDS: THIAMINE HCL 100 MG TABLET (FP) PO SCH (21:19)
[2022-07-18] MEDS: MELATONIN 5 MG TABLETS PO SCH (21:19)
[2022-07-18] MEDS: QUEtiapine FUMARATE 300 MG TABLET PO SCH (21:20)
[2022-07-19] MEDS: PRENATAL VITAMINS W/ FOLIC ACID TABLET (FP) PO SCH (09:41)
[2022-07-19] MEDS: hydrOXYzine PAMOATE 25 MG CAPSULE (FP) PO PRN (09:42)
[2022-07-19] MEDS: NICOTINE 7 MG/24 HOURS TOPICAL PATCH TD SCH (09:42)
[2022-07-19] MEDS ORDERED: QUEtiapine FUMARATE 100 MG TABLET (FP) ONE (19:47)
[2022-07-19] MEDS: MELATONIN 5 MG TABLETS PO SCH (21:13)
[2022-07-19] MEDS: THIAMINE HCL 100 MG TABLET (FP) PO SCH (21:13)
[2022-07-19] MEDS: QUEtiapine FUMARATE 300 MG TABLET PO SCH (21:13)
[2022-07-20 06:46] VITALS: BP 110/66; PULSE 103; RESP 20; TEMP 97.1
[2022-07-20] MEDS: PRENATAL VITAMINS W/ FOLIC ACID TABLET (FP) PO SCH (09:12)
[2022-07-20] MEDS: NICOTINE 7 MG/24 HOURS TOPICAL PATCH TD SCH (09:12)
[2022-07-20] MEDS: hydrOXYzine PAMOATE 25 MG CAPSULE (FP) PO PRN (09:12)
== END 2022-07-20 09:46 | disposition home or self-care (01) | DRG 772 ==
LOC: YASAS 11:28 → Y3E 11:29
PROVIDERS: ADMIT Allergy & Immunology; ATTEND Psychiatry & Neurology Pain Medicine
PROC: HZ42ZZZ Group Counseling for Substance Abuse Treatment, Cognitive-Behavioral (ICD-10-PCS; principal; 2022-06-30)
DX: F10.20 Alcohol dependence, uncomplicated (principal); F11.20 Opioid dependence, uncomplicated; F14.10 Cocaine abuse, uncomplicated; F13.10 Sedative, hypnotic or anxiolytic abuse, uncomplicated; F17.210 Nicotine dependence, cigarettes, uncomplicated; F31.9 Bipolar disorder, unspecified; F41.9 Anxiety disorder, unspecified; F41.0 Panic disorder [episodic paroxysmal anxiety]; G40.909 Epilepsy, unspecified, not intractable, without status epilepticus; Z88.8 Allergy status to other drugs, medicaments and biological substances
CPT/HCPCS: 36415; 80053; 81003; 82962; 83036; 85027; 86780

== ENCOUNTER 2024-10-14 15:51 | Inpatient (IN) | payer OTHER ==
[2024-10-14] MEDS ORDERED: POLYETHYLENE GLYCOL (HEALTHYLAX) 3350 17 GM PACKET PO PRN (17:02)
[2024-10-14] MEDS ORDERED: BENZOCAINE/MENTHOL (CHLORASEPTIC ) LOZENGE MM PRN (17:02)
[2024-10-14] MEDS ORDERED: DICYCLOMINE HCL 10 MG CAPSULE PO PRN (17:02)
[2024-10-14] MEDS ORDERED: hydrOXYzine PAMOATE 25 MG CAPSULE (FP) PO PRN (17:02)
[2024-10-14] MEDS ORDERED: MAG HYDROX/AL HYDROX/SIMETH 30 ML UNIT-DOSE CUP PO PRN (17:02)
[2024-10-14] MEDS ORDERED: BENZONATATE 200 MG CAPSULE PO PRN (17:02)
[2024-10-14] MEDS ORDERED: IBUPROFEN 400 MG TABLET (FP) PO PRN (17:02)
[2024-10-14] MEDS ORDERED: guaiFENesin 600 MG TABLET.ER (FP) PO PRN (17:02)
[2024-10-14] MEDS ORDERED: NALOXONE (NARCAN) HCL 4 MG/0.1 ML SPRAY NS PRN (17:02)
[2024-10-14] MEDS ORDERED: ONDANSETRON *ODT* 4 MG TABLET SL PRN (17:02)
[2024-10-14] MEDS ORDERED: MAGNESIUM HYDROX 2400MG/30ML ORAL SUSPENSION 30 ML CUP PO PRN (17:02)
[2024-10-14] MEDS: MELATONIN 5 MG TABLETS PO SCH (22:11)
[2024-10-14] MEDS: chlordiazePOXIDE HCL 25 MG CAPSULE PO SCH (22:11)
[2024-10-14] MEDS: THIAMINE 100 MG TABLET PO SCH (22:12)
[2024-10-15] MEDS: ACETAMINOPHEN 325 MG TABLET (FP) PO PRN (05:26)
[2024-10-15] MEDS ORDERED: methaDONE HCL 10 MG TABLET PO SCH (09:15)
[2024-10-15] MEDS: HYDROCHLOROTHIAZIDE 12.5 MG CAPSULE (FP) PO SCH (10:06)
[2024-10-15] MEDS: PRENATAL VITAMINS W/ FOLIC ACID TABLET (FP) PO SCH (10:06)
[2024-10-15] MEDS: chlordiazePOXIDE HCL 25 MG CAPSULE PO PRN (13:41)
[2024-10-15] MEDS: METHOCARBAMOL 500 MG TABLET PO PRN (13:41)
[2024-10-15 15:48] LABS: CHLORIDE 99 mmol/L (98-107); POTASSIUM 4.2 mmol/L (3.5-5.1); SODIUM 136 mmol/L (136-145)
[2024-10-15 16:00] LABS: ALBUMIN 3.2 g/dl (3.4-5.0); ANION GAP 5 mmol/L (4-13); BLOOD UREA NITROGEN 10.8 mg/dL (7-18); CO2 32 mmol/L (21-32); GLUCOSE,RANDOM 93 mg/dL (74-106); HEMATOCRIT 38.9 % (35.4-49); MCH 33.3 pg (25.7-33.7); MCHC 33.3 g/dl (32.0-35.9); MEAN CELL VOLUME 100.2 fl (80-96); MEAN PLT VOLUME 7.9 fl (7.5-11.1); PLATELET COUNT 211 10^3/uL (134-434); RBC 3.88 M/mm3 (4.00-5.60); RDW 14.2 % (11.9-15.9); WHITE BLOOD COUNT 6.9 K/mm3 (4.0-10.0)
[2024-10-15 16:03] LABS: CALCIUM 9.3 mg/dL (8.5-10.1); CREATININE 0.5 mg/dL (0.55-1.3); SGOT/AST 44 U/L (15-37)
[2024-10-15 16:04] LABS: BILIRUBIN,TOTAL 0.4 mg/dL (0.2-1)
[2024-10-15 16:05] LABS: ALK PHOS 85 U/L (45-117)
[2024-10-15 16:13] LABS: SGPT/ALT 44 U/L (13-61)
[2024-10-15] MEDS: IBUPROFEN 600 MG TABLET (FP) PO PRN (17:18)
[2024-10-15] MEDS: QUEtiapine FUMARATE 100 MG TABLET (FP) PO SCH (22:12)
[2024-10-16] MEDS: chlordiazePOXIDE HCL 25 MG CAPSULE PO SCH (05:29)
[2024-10-16] MEDS: LOPERAMIDE HCL 2 MG CAPSULE PO PRN (13:40)
[2024-10-17] MEDS ORDERED: chlordiazePOXIDE HCL 10 MG CAPSULE PO PRN
[2024-10-17] MEDS: chlordiazePOXIDE HCL 10 MG CAPSULE PO SCH (05:27)
[2024-10-17] MEDS: TRIMETHOBENZAMIDE HCL 200MG/2ML INJ IM ONE (10:31)
[2024-10-17] MEDS: BACITRACIN 0.9 GM PACKET TP SCH (13:01)
[2024-10-17] MEDS: BISMUTH SUBSALICYLATE 524 MG/30 ML PO PRN (18:08)
[2024-10-18] MEDS: chlordiazePOXIDE HCL 10 MG CAPSULE PO SCH (05:33)
[2024-10-19] MEDS: chlordiazePOXIDE HCL 10 MG CAPSULE PO ONE ×2 (05:14→16:20)
[2024-10-19] MEDS: NALOXONE (NYS OPIOID OVERDOSE PROGRAM) 4 MG/0.1 ML SPRAY NS SCH ×2 (09:21→13:36)
[2024-10-19] MEDS ORDERED: chlordiazePOXIDE HCL 10 MG CAPSULE PO ONE (17:00)
[2024-10-20] MEDS: chlordiazePOXIDE 5 MG CAPSULE PO ONE (05:36)
[2024-10-20] MEDS: chlordiazePOXIDE HCL 10 MG CAPSULE PO ONE ×2 (16:07→22:14)
[2024-10-20 16:33] VITALS: RESP 16
[2024-10-21] MEDS: chlordiazePOXIDE HCL 10 MG CAPSULE PO ONE (05:35)
[2024-10-21 13:30] VITALS: BP 115/74; PULSE 102; TEMP 96.9
== END 2024-10-21 12:50 | disposition other institution (70) | DRG 773 ==
LOC: YASAS 15:51 → Y6N 18:16
PROVIDERS: ADMIT Allergy & Immunology; ATTEND Surgery
PROC: HZ2ZZZZ Detoxification Services for Substance Abuse Treatment (ICD-10-PCS; principal; 2024-10-14)
DX: F10.230 Alcohol dependence with withdrawal, uncomplicated (principal); F11.20 Opioid dependence, uncomplicated; F14.20 Cocaine dependence, uncomplicated; F12.20 Cannabis dependence, uncomplicated; F17.210 Nicotine dependence, cigarettes, uncomplicated; F90.9 Attention-deficit hyperactivity disorder, unspecified type; F33.9 Major depressive disorder, recurrent, unspecified; F43.10 Post-traumatic stress disorder, unspecified; F19.94 Other psychoactive substance use, unspecified with psychoactive substance-induced mood disorder; F11.982 Opioid use, unspecified with opioid-induced sleep disorder; I10 Essential (primary) hypertension; R74.01 Elevation of levels of liver transaminase levels; I45.81 Long QT syndrome; K21.9 Gastro-esophageal reflux disease without esophagitis; Z88.8 Allergy status to other drugs, medicaments and biological substances; Z86.19 Personal history of other infectious and parasitic diseases; Z86.69 Personal history of other diseases of the nervous system and sense organs; Z56.0 Unemployment, unspecified; Z59.00 Homelessness unspecified
CPT/HCPCS: 36415; 71046-TC-FY; 80053; 80307; 85027; 86780; 93005; 93010

== ENCOUNTER 2024-10-21 12:53 | Inpatient (IN) | payer OTHER ==
[2024-10-21] MEDS ORDERED: POLYETHYLENE GLYCOL (HEALTHYLAX) 3350 17 GM PACKET PO PRN (14:22)
[2024-10-21] MEDS ORDERED: MAGNESIUM HYDROX 2400MG/30ML ORAL SUSPENSION 30 ML CUP PO PRN (14:22)
[2024-10-21] MEDS ORDERED: NICOTINE POLACRILEX 2 MG GUM BUC PRN (14:22)
[2024-10-21] MEDS ORDERED: NALOXONE (NARCAN) HCL 4 MG/0.1 ML SPRAY NS PRN (14:22)
[2024-10-21] MEDS ORDERED: guaiFENesin 600 MG TABLET.ER (FP) PO PRN (14:22)
[2024-10-21] MEDS ORDERED: BENZONATATE 200 MG CAPSULE PO PRN (14:22)
[2024-10-21] MEDS ORDERED: BENZOCAINE/MENTHOL (CHLORASEPTIC ) LOZENGE MM PRN (14:22)
[2024-10-21] MEDS ORDERED: NALOXONE HCL 0.4 MG/ML VIAL IVPUSH PRN (14:22)
[2024-10-21] MEDS ORDERED: ACETAMINOPHEN 325 MG TABLET (FP) PO PRN (14:22)
[2024-10-21] MEDS ORDERED: NICOTINE POLACRILEX 2 MG LOZENGE BC PRN (14:22)
[2024-10-21] MEDS: QUEtiapine FUMARATE 100 MG TABLET (FP) PO SCH (21:12)
[2024-10-21] MEDS: MELATONIN 5 MG TABLETS PO SCH (21:12)
[2024-10-21] MEDS: THIAMINE 100 MG TABLET PO SCH (21:12)
[2024-10-22] MEDS ORDERED: methaDONE HCL 10 MG TABLET PO SCH (06:00)
[2024-10-22] MEDS: PRENATAL VITAMINS W/ FOLIC ACID TABLET (FP) PO SCH (09:44)
[2024-10-22] MEDS: hydrOXYzine PAMOATE 25 MG CAPSULE (FP) PO PRN (09:45)
[2024-10-22] MEDS: METHOCARBAMOL 500 MG TABLET PO PRN (09:45)
[2024-10-22] MEDS: NICOTINE 14 MG/24 HOURS TOPICAL PATCH TD SCH (09:46)
[2024-10-22] MEDS ORDERED: P-EPHED 60MG/TRIPROLIDI 2.5MG TABLET PO PRN (14:11)
[2024-10-22] MEDS ORDERED: ONDANSETRON *ODT* 4 MG TABLET SL PRN (14:11)
[2024-10-22] MEDS ORDERED: DICYCLOMINE HCL 10 MG CAPSULE PO PRN (14:11)
[2024-10-22] MEDS: hydrOXYzine PAMOATE 50 MG CAPSULE (FP) PO PRN (14:20)
[2024-10-22] MEDS: chlordiazePOXIDE HCL 10 MG CAPSULE PO PRN (14:35)
[2024-10-22] MEDS: QUEtiapine FUMARATE 100 MG TABLET (FP) PO SCH (21:25)
[2024-10-23 11:19] LABS: INR 0.85 (0.83-1.09); PROTHROMBIN TIME (PATIENT) 9.8 SEC (9.7-13.0)
[2024-10-23] MEDS: BISMUTH SUBSALICYLATE 524 MG/30 ML PO PRN (12:05)
[2024-10-23] MEDS: TOLNAFTATE 1% CREAM 15 GM TUBE TP SCH (21:05)
[2024-10-25] MEDS: LOPERAMIDE HCL 2 MG CAPSULE PO PRN (13:47)
[2024-10-25] MEDS ORDERED: chlordiazePOXIDE 5 MG CAPSULE PO PRN (13:48)
[2024-10-25] MEDS: RIFAXIMIN 550 MG TABLET PO SCH (21:03)
[2024-10-25] MEDS: IBUPROFEN 600 MG TABLET (FP) PO PRN (21:04)
[2024-10-26] MEDS: IBUPROFEN 400 MG TABLET (FP) PO PRN (14:36)
[2024-10-27] MEDS: MAG HYDROX/AL HYDROX/SIMETH 30 ML UNIT-DOSE CUP PO PRN (08:42)
[2024-10-28] MEDS: chlordiazePOXIDE HCL 10 MG CAPSULE PO PRN (13:12)
[2024-10-28] MEDS: methaDONE HCL 10 MG TABLET PO ONE (13:12)
[2024-10-28] MEDS: TRIMETHOBENZAMIDE HCL 200MG/2ML INJ IM ONE (13:14)
[2024-10-28] MEDS: TRIMETHOBENZAMIDE HCL 200MG/2ML INJ IM PRN (17:23)
[2024-10-29] MEDS: methaDONE 240 MG, methaDONE 30 MG PO SCH (05:57)
[2024-10-29] MEDS ORDERED: methaDONE HCL 40 MG DISPERSABLE TABLET PO SCH (06:00)
[2024-10-29] MEDS: NICOTINE 7 MG/24 HOURS TOPICAL PATCH TD SCH (10:24)
[2024-10-30] MEDS ORDERED: QUEtiapine FUMARATE 50 MG TABLET ONE (21:09)
[2024-10-31] MEDS: chlordiazePOXIDE HCL 10 MG CAPSULE PO PRN (11:05)
[2024-10-31] MEDS: TRIMETHOBENZAMIDE HCL 200MG/2ML INJ IM PRN (12:41)
[2024-11-01] MEDS: chlordiazePOXIDE HCL 10 MG CAPSULE PO SCH (19:51)
[2024-11-03] MEDS ORDERED: chlordiazePOXIDE HCL 10 MG CAPSULE PO PRN (10:00)
[2024-11-03] MEDS: FAMOTIDINE 20 MG TABLET PO SCH (10:57)
[2024-11-09] MEDS ORDERED: QUEtiapine FUMARATE 50 MG TABLET ONE (20:36)
[2024-11-10] MEDS ORDERED: QUEtiapine FUMARATE 50 MG TABLET ONE (20:18)
[2024-11-11] MEDS: methaDONE 240 MG, methaDONE 30 MG PO SCH (05:46)
[2024-11-11] MEDS ORDERED: methaDONE HCL 10 MG TABLET PO SCH (06:00)
[2024-11-11] MEDS: ASPIRIN 81 MG CHEWABLE TABLETS PO ONE (12:53)
[2024-11-12] MEDS: ASPIRIN 81 MG CHEWABLE TABLETS PO SCH (09:42)
[2024-11-16 07:25] VITALS: RESP 16
[2024-11-16] MEDS: QUEtiapine FUMARATE 200 MG TABLET PO SCH (21:30)
[2024-11-17] MEDS: BISMUTH SUBSALICYLATE 524 MG/30 ML PO PRN (09:56)
[2024-11-18 05:38] VITALS: TEMP 97.7
[2024-11-18 09:01] VITALS: BP 145/84; PULSE 100
[2024-11-18] MEDS: NALOXONE (NYS OPIOID OVERDOSE PROGRAM) 4 MG/0.1 ML SPRAY NS SCH (09:17)
== END 2024-11-18 10:00 | disposition home or self-care (01) | DRG 772 ==
LOC: YASAS 12:53 → Y3W 12:55
PROVIDERS: ADMIT Psychiatry & Neurology Pain Medicine; ATTEND Family Medicine Addiction Medicine
PROC: HZ42ZZZ Group Counseling for Substance Abuse Treatment, Cognitive-Behavioral (ICD-10-PCS; principal; 2024-10-21)
DX: F10.20 Alcohol dependence, uncomplicated (principal); F11.20 Opioid dependence, uncomplicated; F14.20 Cocaine dependence, uncomplicated; F17.210 Nicotine dependence, cigarettes, uncomplicated; F19.282 Other psychoactive substance dependence with psychoactive substance-induced sleep disorder; F19.280 Other psychoactive substance dependence with psychoactive substance-induced anxiety disorder; F19.24 Other psychoactive substance dependence with psychoactive substance-induced mood disorder; F41.9 Anxiety disorder, unspecified; F43.10 Post-traumatic stress disorder, unspecified; E72.20 Disorder of urea cycle metabolism, unspecified; G47.00 Insomnia, unspecified; I10 Essential (primary) hypertension; B35.3 Tinea pedis; B35.1 Tinea unguium; M54.41 Lumbago with sciatica, right side; M54.42 Lumbago with sciatica, left side; R10.13 Epigastric pain; R11.0 Nausea; R93.41 Abnormal radiologic findings on diagnostic imaging of renal pelvis, ureter, or bladder; Z86.11 Personal history of tuberculosis; Z86.19 Personal history of other infectious and parasitic diseases; Z86.79 Personal history of other diseases of the circulatory system; Z86.73 Personal history of transient ischemic attack (TIA), and cerebral infarction without residual deficits; Z88.8 Allergy status to other drugs, medicaments and biological substances
CPT/HCPCS: 36415; 82140; 83735; 85610; 93005; 93010

== ENCOUNTER 2024-12-06 11:59 | Inpatient (IN) | payer OTHER ==
[2024-12-06] MEDS ORDERED: NALOXONE (NARCAN) HCL 4 MG/0.1 ML SPRAY NS PRN (14:23)
[2024-12-06] MEDS ORDERED: NALOXONE HCL 0.4 MG/ML VIAL IVPUSH PRN (14:23)
[2024-12-06] MEDS ORDERED: IBUPROFEN 400 MG TABLET (FP) PO PRN (14:23)
[2024-12-06] MEDS ORDERED: guaiFENesin 600 MG TABLET.ER (FP) PO PRN (14:23)
[2024-12-06] MEDS ORDERED: NICOTINE POLACRILEX 4 MG GUM BUC PRN (14:23)
[2024-12-06] MEDS ORDERED: NICOTINE 14 MG/24 HOURS TOPICAL PATCH TD PRN (14:23)
[2024-12-06] MEDS ORDERED: MAGNESIUM HYDROX 2400MG/30ML ORAL SUSPENSION 30 ML CUP PO PRN (14:23)
[2024-12-06] MEDS ORDERED: NICOTINE POLACRILEX 4 MG LOZENGE BC PRN (14:23)
[2024-12-06] MEDS ORDERED: POLYETHYLENE GLYCOL (HEALTHYLAX) 3350 17 GM PACKET PO PRN (14:23)
[2024-12-06] MEDS ORDERED: BENZOCAINE/MENTHOL (CHLORASEPTIC ) LOZENGE MM PRN (14:23)
[2024-12-06] MEDS ORDERED: BENZONATATE 200 MG CAPSULE PO PRN (14:23)
[2024-12-06] MEDS ORDERED: LOPERAMIDE HCL 2 MG CAPSULE PO PRN (14:23)
[2024-12-06] MEDS: ACETAMINOPHEN 325 MG TABLET (FP) PO PRN (17:59)
[2024-12-06] MEDS: THIAMINE 100 MG TABLET PO SCH (21:32)
[2024-12-06] MEDS: MELATONIN 5 MG TABLETS PO SCH (21:32)
[2024-12-06] MEDS: chlordiazePOXIDE HCL 10 MG CAPSULE PO PRN (21:32)
[2024-12-06] MEDS: CLINDAMYCIN PHOSPHATE 1% TOPICAL GEL 30 GM TUBE TP SCH (21:33)
[2024-12-07] MEDS ORDERED: methaDONE HCL 10 MG TABLET PO SCH (06:00)
[2024-12-07] MEDS: IBUPROFEN 600 MG TABLET (FP) PO PRN (06:20)
[2024-12-07] MEDS: PRENATAL VITAMINS W/ FOLIC ACID TABLET (FP) PO SCH (09:36)
[2024-12-07] MEDS: METHOCARBAMOL 500 MG TABLET PO PRN (17:05)
[2024-12-07] MEDS: hydrOXYzine PAMOATE 50 MG CAPSULE (FP) PO PRN (19:56)
[2024-12-07] MEDS: QUEtiapine FUMARATE 100 MG TABLET (FP) PO ONE (23:19)
[2024-12-08] MEDS: QUEtiapine FUMARATE 100 MG TABLET (FP) PO SCH (21:53)
[2024-12-08] MEDS ORDERED: QUEtiapine FUMARATE 200 MG TABLET PO SCH (22:00)
[2024-12-09] MEDS: LIDOCAINE 5% TOPICAL PATCH TP SCH (17:45)
[2024-12-09] MEDS: LIDOCAINE PATCH REMOVAL MC SCH (21:38)
[2024-12-13] MEDS: FLU VACCINE (FLULAVAL) PF 45 MCG/0.5 ML SYRINGE 2024-2025 IM ONE (12:09)
[2024-12-17] MEDS: MAG HYDROX/AL HYDROX/SIMETH 30 ML UNIT-DOSE CUP PO PRN (17:51)
[2024-12-19] MEDS ORDERED: FAMOTIDINE 20 MG TABLET PO PRN (13:48)
[2024-12-20] MEDS: ACAMPROSATE CALCIUM 333 MG TABLET.DR PO SCH (14:22)
[2024-12-22] MEDS: ACAMPROSATE CALCIUM 333 MG TABLET.DR PO SCH (05:45)
[2024-12-27] MEDS: RIFAXIMIN 550 MG TABLET PO SCH (12:59)
[2024-12-28] MEDS: ONDANSETRON *ODT* 4 MG TABLET SL PRN (14:42)
[2024-12-29] MEDS ORDERED: QUEtiapine FUMARATE 50 MG TABLET ONE (20:24)
[2024-12-30 11:15] LABS: BASO % 0.2 % (0-2.0); EOS % 11.3 % (0-4.5); HEMATOCRIT 39.9 % (35.4-49); HEMOGLOBIN 13.3 GM/dL (11.7-16.9); LYMPH % 41.4 % (8-40); MCH 30.8 pg (25.7-33.7); MCHC 33.3 g/dl (32.0-35.9); MEAN CELL VOLUME 92.5 fl (80-96); MEAN PLT VOLUME 7.8 fl (7.5-11.1); MONO % 13.5 % (3.8-10.2); NEUT % 33.6 % (42.8-82.8); PLATELET COUNT 259 10^3/uL (134-434); RBC 4.32 M/mm3 (4.00-5.60); RDW 13.7 % (11.9-15.9); WHITE BLOOD COUNT 5.3 K/mm3 (4.0-10.0)
[2024-12-30 11:21] LABS: POTASSIUM 4.2 mmol/L (3.5-5.1)
[2024-12-30 11:33] LABS: ALBUMIN 4.2 g/dl (3.4-5.0); BLOOD UREA NITROGEN 19.9 mg/dL (7-18); CALCIUM 9.9 mg/dL (8.5-10.1); MAGNESIUM 2.1 mg/dL (1.8-2.4)
[2024-12-30 11:36] LABS: CREATININE 0.8 mg/dL (0.55-1.3)
[2024-12-30 11:38] LABS: BILIRUBIN,TOTAL 0.3 mg/dL (0.2-1); TOT PROT 7.7 g/dl (6.4-8.2)
[2024-12-31 05:45] VITALS: RESP 16
[2024-12-31 17:07] LABS: GLIADIN ANTIBODY IGA 7 units (0-19); GLIADIN ANTIBODY IGG 3 units (0-19); TRANSGLUTAMINASE IGG 3 U/mL (0-5)
[2025-01-02 05:48] VITALS: BP 112/71; PULSE 82; TEMP 97.3
== END 2025-01-02 09:56 | disposition home or self-care (01) | DRG 772 ==
LOC: YASAS 11:59 → Y3W 12:01
PROVIDERS: ADMIT Psychiatry & Neurology Pain Medicine; ATTEND Psychiatry & Neurology Pain Medicine
PROC: HZ42ZZZ Group Counseling for Substance Abuse Treatment, Cognitive-Behavioral (ICD-10-PCS; principal; 2024-12-06)
DX: F10.20 Alcohol dependence, uncomplicated (principal); F11.20 Opioid dependence, uncomplicated; F14.20 Cocaine dependence, uncomplicated; F19.280 Other psychoactive substance dependence with psychoactive substance-induced anxiety disorder; F19.282 Other psychoactive substance dependence with psychoactive substance-induced sleep disorder; F19.24 Other psychoactive substance dependence with psychoactive substance-induced mood disorder; F43.10 Post-traumatic stress disorder, unspecified; F41.9 Anxiety disorder, unspecified; F90.9 Attention-deficit hyperactivity disorder, unspecified type; R76.11 Nonspecific reaction to tuberculin skin test without active tuberculosis; Z20.828 Contact with and (suspected) exposure to other viral communicable diseases; S62.645D Nondisplaced fracture of proximal phalanx of left ring finger, subsequent encounter for fracture with routine healing; S62.232D Other displaced fracture of base of first metacarpal bone, left hand, subsequent encounter for fracture with routine healing; Y08.09XD Assault by strike by other specified type of sport equipment, subsequent encounter; Z88.8 Allergy status to other drugs, medicaments and biological substances; Z86.73 Personal history of transient ischemic attack (TIA), and cerebral infarction without residual deficits; Z56.0 Unemployment, unspecified; Z59.00 Homelessness unspecified
CPT/HCPCS: 36415; 71046-TC-FY; 80053; 82607; 82652; 82728; 82746; 82784; 83516; 83540; 83735; 85025; Q0162